=== PATIENT | female | born 1960 | race Caucasian/White ===

== ENCOUNTER 2018-09-22 22:29 | Emergency (ER) | payer OTHER, SELFPAY ==
[2018-09-22 22:41] VITALS: BP 149/82; PULSE 113; RESP 24; TEMP 37.3; O2SAT 93; BMI 34.5
--- NOTE | 2018-09-22 22:44 | DI.RAD.S_ITS ---
PROCEDURE: XR CHEST 2V INDICATIONS: fever,cough,shortness of breath TECHNIQUE: 2 views of the chest were acquired. COMPARISON: None. FINDINGS: Surgical changes and devices: None. Lungs and pleura: There is infiltrate in the right lower lung zone. No pleural effusions or pneumothorax. Mediastinum: Mediastinal contours are normal. Heart size is normal. Bones and chest wall: No suspicious bony abnormalities. Soft tissues appear unremarkable. IMPRESSION: Infiltrate in the right lower lung consistent with pneumonia. Recommend short-term followup chest x-ray to resolution. Dictated by: Linda Fernando M.D. on 09/23/2018 at 8:52 Approved by: Linda Fernando M.D. on 09/23/2018 at 8:54
[2018-09-22 22:47] VITALS: PULSE 111; RESP 22; O2SAT 95
[2018-09-22] MEDS: ALBUTEROL/IPRATROPIUM 3 ML AMPUL INH (22:47)
[2018-09-22] MEDS: ALBUTEROL 2.5 MG/3 ML NEB (ADULT) INH (22:47)
[2018-09-22 23:13] VITALS: PULSE 111; RESP 22; O2SAT 97
[2018-09-22] MEDS: ALBUTEROL 2.5 MG/3 ML NEB (ADULT) 5 MG INH (23:13)
[2018-09-22 23:30] VITALS: BP 122/72; PULSE 102; O2SAT 98
--- NOTE | 2018-09-22 23:30 | ED_ITS ---
HPI - URI/Sore Throat General Chief Complaint: Upper Respiratory Symptoms Stated Complaint: FEVER, COUGH, RESPIRATORY ISSUES Time Seen by Provider: 09/22/18 22:46 Source: patient Mode of arrival: ambulatory Limitations: no limitations History of Present Illness HPI Narrative: Patient is a 58-year-old female with history of asthma presenting fever and difficulty breathing for the last 8 days. She has had worsening productive cough over the last few days. She has had body aches fever and chills. She is overall not improving. She was using her albuterol without any relief. She has coughed so hard that she has vomited at times. He said it all started when she emptied her VAC. They did just move here from [place] awaiting furniture to arrive. MD Complaint: fever and cough Onset (ago): day(s) (8) Related Data Home Medications Medication Instructions Recorded Confirmed fluticasone-salmeterol [Advair HFA] INH #0 03/24/17 hydrocodone-acetaminophen [Vicodin] 1 tab PO Q4HP PRN #0 09/14/17 Previous Rx's Medication Instructions Recorded ipratropium-albuterol 3 ml INH Q6H PRN #100 02/16/17 lisinopril-hydrochlorothiazide 1 tab PO QDAY #90 02/16/17 fluticasone-salmeterol [Advair 1 puff INH BID #1 ea 06/15/17 Diskus] prednisone 20 mg PO SEE INSTRUCTIONS #10 tab 12/29/17 levofloxacin [Levaquin] 750 mg PO DAILY #5 tab 09/23/18 prednisone 50 mg PO DAILY #5 tab 09/23/18 Allergies Allergy/AdvReac Type Severity Reaction Status Date / Time iodine [IODINE] AdvReac Mild iv Verified 09/22/18 22:49 contrast - weird feeling Review of Systems Review of Systems ROS Unobtainable: All systems reviewed & are unremarkable except as noted in HPI and below Constitutional Reports body ache(s), Reports chills, Reports fatigue, Reports fever(s), Reports headache(s), Reports lethargy and Denies weakness ENT Ears, Nose, Mouth, and Throat: Denies change in voice, Reports headache(s), Denies neck pain and Denies sore throat Cardiovascular Denies chest pain, Denies syncope, Denies irregular heart rhythm, Denies lightheadedness, Denies palpitations and Denies orthopnea Respiratory Reports as per HPI Gastrointestinal Gastrointestinal: Denies abdominal pain, Denies change in bowel habits, Denies diarrhea, Denies nausea and Reports vomiting (After coughing) Genitourinary Denies hematuria, Denies flank pain, Denies urinary incontinence and Denies urinary urgency Musculoskeletal Denies neck pain Integumentary/Breasts Denies pruritus, Denies erythema, Denies rash and Denies wounds Neurologic Denies syncope, Reports headache(s), Denies focal weakness and Denies weakness Endocrine Reports fatigue and Denies palpitations PFSH Medical History Asthma (Acute) Surgical History History of tonsillectomy Status post hysterectomy Status post parathyroidectomy Family History Father Hypertension Mother Hypertension Grandmother Hypertension Social History Smoking Status: Never smoker Exam Initial Vital Signs Initial Vital Signs: Vital Signs Temperature 99.1 F 09/22/18 22:41 Pulse Rate 113 H 09/22/18 22:41 Respiratory Rate 24 09/22/18 22:41 Blood Pressure 149/82 H 09/22/18 22:41 Pulse Oximetry 93 09/22/18 22:41 GENERAL: Well-appearing, well-nourished and in no acute distress. HEENT: Head atraumatic,EOMI, pupils reactive CARDIOVASCULAR: Regular rate and rhythm without murmurs, rubs or gallops. RESPIRATORY: Diffuse wheezing bilaterally speaking in full sentences without difficulty mild rales at bases no intercostal retractions, slightly tachypneic. ABDOMEN: Soft, nontender. Normoactive bowel sounds all 4 quadrants. No guarding or rebound. EXTREMITIES: Normal range of motion, no clubbing or edema. Neurovascularly intact NEUROLOGICAL: Alert and oriented x4.Normal gait and speech. Cranial nerves II through XII grossly intact. SKIN: Warm, dry, no laceration, no petechiae, no rashes or lesions. Scores CURB-65 Confusion: No BUN >19mg/dL (>7mmol/L): No Respiratory rate greater or equal to 30: No SBP <90mmHg or DBP less or equal to 60mmHg: No Age 65 or Older: No CURB-65 Total: 0 Score 0-1 Outpatient care, Score 2 Inpt vs. Obs, Score 3 or over Inpt admit with ICU for score of 4-5 Course Orders Ordered: ED Orders 09/22/18 22:44 XR chest 2V Stat 09/22/18 23:17 Consult to Respiratory Therapy Evaluate & Treat EKG-12 Lead Stat 09/22/18 23:20 B Type Natriuretic Peptide Stat Complete Blood Count AUTO DIFF Stat Comprehensive Metabolic Panel Stat Magnesium Stat Partial Thromboplastin Time Stat Procalcitonin Stat Prothrombin Time INR Stat Troponin & CK Cardiac Panel Stat 09/22/18 23:34 Blood Culture Stat 09/22/18 23:35 Lactate (Lactic Acid) Stat Discontinued Medications Acetaminophen (Tylenol) 975 mg PO NOW ONE Stop: 09/23/18 01:00 Last Admin: 09/23/18 01:16 Dose: 975 mg Albuterol (Ventolin) 2.5 mg INH NOW ONE Stop: 09/22/18 22:47 Last Admin: 09/22/18 22:47 Dose: 2.5 mg Albuterol (Ventolin) 5 mg INH NOW ONE Stop: 09/22/18 23:13 Last Admin: 09/22/18 23:13 Dose: 5 mg Albuterol/Ipratropium (Duoneb) 3 ml INH NOW ONE Stop: 09/22/18 22:46 Last Admin: 09/22/18 22:47 Dose: 3 ml Sodium Chloride (Normal Saline 0.9%) 1,000 mls @ 1,000 mls/hr IV BOLUS ONE Stop: 09/23/18 00:15 Last Infusion: 09/23/18 01:14 Dose: 0 mls/hr Admin: 09/22/18 23:49 Dose: 1,000 mls/hr Levofloxacin (Levaquin) 750 mg PO NOW ONE Stop: 09/23/18 01:00 Last Admin: 09/23/18 01:16 Dose: 750 mg Methylprednisolone (Solu-Medrol 125 Mg Vial) 125 mg IV NOW ONE Stop: 09/22/18 23:17 Last Admin: 09/22/18 23:48 Dose: 125 mg Vital Signs - 8 hr 09/22/18 22:41 09/22/18 22:47 09/22/18 23:13 Temperature 99.1 F Pulse Rate 113 H 111 H 111 H Respiratory Rate 24 22 22 Blood Pressure 149/82 H Blood Pressure [Left Arm] Pulse Oximetry 93 95 97 09/22/18 23:30 09/23/18 01:40 Temperature Pulse Rate 102 H 112 H Respiratory Rate 20 Blood Pressure 122/72 Blood Pressure [Left Arm] 122/72 Pulse Oximetry 98 98 MDM - URI/Sore Throat Lab Data Attestation: I reviewed the patient's lab results. Result diagrams: 09/22/18 23:20 09/22/18 23:20 Lab Results 09/22/18 09/22/18 09/22/18 Range/Units 23:20 23:20 23:20 WBC 8.2 (4.5-11.0) X10^3/uL RBC 4.13 (4.0-5.2) X10^6/uL Hgb 12.7 (12.0-16.0) g/dL Hct 36.7 (36-46) % MCV 89.0 (80-100) fL MCH 30.6 (26-34) PG MCHC 34.4 (30-36) % RDW 12.6 (11.6-14.8) % Plt Count 315 (150-400) X10^3/uL Neut % (Auto) 63.6 (50-75) % Lymph % (Auto) 24.4 L (25-40) % [place] % (Auto) 9.4 (3-14) % Eos % (Auto) 2.3 (2-4) % Baso % (Auto) 0.3 (0-2) % Neut # (Auto) 5200 (3784-4476) /uL Lymph # (Auto) 2000 (8849-7516) /uL [place] # (Auto) 800 (0-900) /uL Eos # (Auto) 200 (0-450) /uL Baso # (Auto) 0 (0-100) /uL PT 12.4 (10.1-12.7) SECONDS INR 1.1 (0.9-1.3) APTT 36 (26.4-36.2) SECONDS Sodium 140 (137-145) mmol/L Potassium 3.7 (3.4-5.1) mmol/L Chloride 97 L (98-107) mmol/L Carbon Dioxide 30 (22-32) mmol/L BUN 18 H (7-17) mg/dL Creatinine 0.70 (0.52-1.04) mg/dL Estimated GFR > 60.0 (>60) mL/min BUN/Creatinine Ratio 25.7 H (6-22) Glucose 113 H (70-100) mg/dL Lactate (0.7-2.1) mmol/L Calcium 9.2 (8.4-10.2) mg/dL Magnesium 1.9 (1.6-2.3) mg/dL Total Bilirubin 0.6 (0.2-1.3) mg/dL AST 29 (14-36) IU/L ALT 24 (9-52) IU/L Alkaline Phosphatase 92 (38-126) U/L Total Creatine Kinase 80 (30-135) U/L CK-MB (CK-2) TNP CK-MB (CK-2) Rel Index TNP Troponin I < 0.012 (0.01-0.034) ng/mL B-Natriuretic Peptide < 100 (<100) Total Protein 8.1 (6.3-8.2) g/dL Albumin 4.4 (3.5-5.0) g/dL Globulin 3.7 (1.7-4.1) g/dL Albumin/Globulin Ratio 1.2 (1.0-2.8) Procalcitonin (<0.5) ng/mL 09/22/18 09/22/18 Range/Units 23:20 23:35 WBC (4.5-11.0) X10^3/uL RBC (4.0-5.2) X10^6/uL Hgb (12.0-16.0) g/dL Hct (36-46) % MCV (80-100) fL MCH (26-34) PG MCHC (30-36) % RDW (11.6-14.8) % Plt Count (150-400) X10^3/uL Neut % (Auto) (50-75) % Lymph % (Auto) (25-40) % [place] % (Auto) (3-14) % Eos % (Auto) (2-4) % Baso % (Auto) (0-2) % Neut # (Auto) (8523-8370) /uL Lymph # (Auto) (6563-5438) /uL [place] # (Auto) (0-900) /uL Eos # (Auto) (0-450) /uL Baso # (Auto) (0-100) /uL PT (10.1-12.7) SECONDS INR (0.9-1.3) APTT (26.4-36.2) SECONDS Sodium (137-145) mmol/L Potassium (3.4-5.1) mmol/L Chloride (98-107) mmol/L Carbon Dioxide (22-32) mmol/L BUN (7-17) mg/dL Creatinine (0.52-1.04) mg/dL Estimated GFR (>60) mL/min BUN/Creatinine Ratio (6-22) Glucose (70-100) mg/dL Lactate 1.2 (0.7-2.1) mmol/L Calcium (8.4-10.2) mg/dL Magnesium (1.6-2.3) mg/dL Total Bilirubin (0.2-1.3) mg/dL AST (14-36) IU/L ALT (9-52) IU/L Alkaline Phosphatase (38-126) U/L Total Creatine Kinase (30-135) U/L CK-MB (CK-2) CK-MB (CK-2) Rel Index Troponin I (0.01-0.034) ng/mL B-Natriuretic Peptide (<100) Total Protein (6.3-8.2) g/dL Albumin (3.5-5.0) g/dL Globulin (1.7-4.1) g/dL Albumin/Globulin Ratio (1.0-2.8) Procalcitonin < 0.05 (<0.5) ng/mL Imaging Data Chest x-ray: Attestation: I personally reviewed and interpreted this imaging study as follows: My impression: Right middle lobe pneumonia ECG Data Attestation: I personally reviewed and interpreted this ECG as follows: Prior ECG tracings: not available for review Interpretation: Normal sinus rhythm rate [address] changes or T-wave inversion Q -wave noted in lead 3 no priors to compare MDM Narrative Medical decision making narrative: Patient has always been able to speak without any difficulty. Her breathing did improve with bronchodilators. She does have right middle lobe pneumonia on x-ray. At this time does not meet inpatient criteria. She had an ambulation trial in the ED with oxygen levels remaining above 90%. Discharge Plan Departure Patient Disposition: Home Clinical Impression: Pneumonia Discharge Date/Time: 09/23/18 01:43 Interventions: ED Discharge Assessment Last Done: 09/23/18 01:40 Instructions: DI for Pneumonia -- Adult Activity Restrictions/Additional Instructions: *You have been diagnosed with pneumonia *What to do: Rest, hydrate, fever control, at this time you do not meet inpatient criteria *Continue to take medications as directed Levaquin 750 mg once a day for 5 days Prednisone 50 mg once a day for 5 days Albuterol 1-2 puffs with spacer every 4 hr if needed for shortness of breath *Follow up with your primary care provider in 2-3 days *Return to ER if you should have difficulty breathing, increasing shortness breath, chest discomfort or any new, worsening or concerning symptoms Prescriptions: New prednisone 50 mg tablet 50 mg PO DAILY Qty: 5 RF: 0 levofloxacin [Levaquin] 750 mg tablet 750 mg PO DAILY Qty: 5 RF: 0 No Action ipratropium-albuterol 3 ML solution for nebulization 3 ml INH Q6H PRNQty: 100 RF: 3 lisinopril-hydrochlorothiazide 10 MG/12.5 MG tablet 1 tab PO QDAY Qty: 90 RF: 3 fluticasone-salmeterol [Advair HFA] 45-21 mcg/actuation Hfa Aerosol Inhaler INH Qty: 0 RF: 0 fluticasone-salmeterol [Advair Diskus] 250 MCG/50 MCG blister with device 1 puff INH BID Qty: 1 RF: 3 hydrocodone-acetaminophen [Vicodin] 5 MG/300 MG tablet 1 tab PO Q4HP PRNQty: 0 RF: 0 prednisone 20 MG tablet 20 mg PO SEE INSTRUCTIONS Qty: 10 RF: 0 Referrals: Rosaura Arroyo DO [Primary Care Provider] - Stand Alone Forms: Work Release Note
[2018-09-22 23:38] LABS: Add Manual Diff / Slide Review NO; Basophils Absolute Auto 0 /uL (0-100); Basophils Percent Auto 0.3 % (0-2); Eosinophils Absolute Auto 200 /uL (0-450); Eosinophils Percent Auto 2.3 % (2-4); Hematocrit 36.7 % (36-46); Hemoglobin 12.7 g/dL (12.0-16.0); Lymphocytes Absolute Auto 2000 /uL (1100-4500); Lymphocytes Percent Auto 24.4 % (25-40); Mean Corpuscular HGB Conc 34.4 % (30-36); Mean Corpuscular Hemoglobin 30.6 PG (26-34); Monocytes Absolute Auto 800 /uL (0-900); Monocytes Percent Auto 9.4 % (3-14); Neutrophils Absolute Auto 5200 /uL (1500-7000); Neutrophils Percent Auto 63.6 % (50-75); Platelet Count 315 X10^3/uL (150-400); Red Blood Cell Count 4.13 X10^6/uL (4.0-5.2); Red Cell Distribution Width 12.6 % (11.6-14.8); White Blood Cell Count 8.2 X10^3/uL (4.5-11.0)
[2018-09-22 23:44] LABS: INR 1.1 (0.9-1.3); Prothrombin Time 12.4 SECONDS (10.1-12.7)
[2018-09-22 23:46] LABS: PTT Partial Thromboplastin Tim 36 SECONDS (26.4-36.2)
[2018-09-22 23:48] LABS: Alanine Aminotransferase 24 IU/L (9-52); Albumin 4.4 g/dL (3.5-5.0); Albumin Globulin Ratio 1.2 (1.0-2.8); Alkaline Phosphatase 92 U/L (38-126); Aspartate Aminotransferase 29 IU/L (14-36); BUN Creatinine Ratio 25.7 (6-22); Bilirubin Total 0.6 mg/dL (0.2-1.3); Blood Urea Nitrogen 18 mg/dL (7-17); Calcium 9.2 mg/dL (8.4-10.2); Carbon Dioxide 30 mmol/L (22-32); Chloride 97 mmol/L (98-107); Creatine Kinase 80 U/L (30-135); Estimated Glomerular Filt Rate > 60.0 mL/min (>60); Globulin 3.7 g/dL (1.7-4.1); Glucose 113 mg/dL (70-100); HEMOLYSIS 17 (0-50); Magnesium 1.9 mg/dL (1.6-2.3); Potassium 3.7 mmol/L (3.4-5.1); Sodium 140 mmol/L (137-145); Total Protein 8.1 g/dL (6.3-8.2)
[2018-09-22] MEDS: methylPREDNISolone 125 MG/2 ML VIAL IV (23:48)
[2018-09-22] MEDS: SODIUM CHLORIDE 0.9% 1,000 ML 1000 ML IV (23:49)
[2018-09-23 00:04] LABS: B Type Natriuretic Peptide < 100 (<100); Troponin I < 0.012 ng/mL (0.01-0.034)
[2018-09-23 00:10] LABS: Lactate (Lactic Acid) 1.2 mmol/L (0.7-2.1)
[2018-09-23 00:28] LABS: Procalcitonin < 0.05 ng/mL (<0.5)
[2018-09-23] MEDS: ACETAMINOPHEN 325 MG TABLET 975 MG PO (01:16)
[2018-09-23] MEDS: levoFLOXacin 250 MG TABLET 750 MG PO (01:16)
[2018-09-23 01:40] VITALS: BP 122/72; PULSE 112; RESP 20; O2SAT 98
== END 2018-09-23 01:43 | disposition home or self-care (01) ==
PROVIDERS: Emergency Provider Emergency Medicine; Family Provider Family Medicine; PCP Family Medicine
DX: J18.9 Pneumonia, unspecified organism (principal)
CPT/HCPCS: 36415; 36591; 71046; 80053; 82550; 83605; 83735; 83880; 84145; 84484; 85025; 85610; 85730; 87040; 93005; 93010; 94150; 94640; 96361; 96374; 99283; 99285; J2930; J7613

== ENCOUNTER → 2019-01-29 10:41 | Outpatient (CLI) | payer OTHER, SELFPAY ==
--- NOTE | 2019-01-29 | DI.RAD.S_ITS ---
PROCEDURE: XR CHEST 2V INDICATIONS: HISTORY OF PNEUMONIA TECHNIQUE: 2 views of the chest were acquired. COMPARISON: [facility], CR, XR CHEST 2V, 09/22/2018, 23:34. FINDINGS: Surgical changes and devices: None. Lungs and pleura: Lungs are clear. The previously seen right lower lobe infiltrate has resolved. No pleural effusions or pneumothorax. The lungs are hyperexpanded, with flattening of the hemidiaphragms seen. Mediastinum: Mediastinal contours are normal. Heart size is normal. Bones and chest wall: No suspicious bony abnormalities. Soft tissues appear unremarkable. IMPRESSION: No infiltrates are now seen. The previously seen right-sided infiltrate has resolved. Dictated by: Jimmy Hernandez M.D. on 01/29/2019 at 10:50 Approved by: Jimmy Hernandez M.D. on 01/29/2019 at 10:51
== END ==
PROVIDERS: PCP Internal Medicine; Visit Provider Internal Medicine
DX: Z09 Encounter for follow-up examination after completed treatment for conditions other than malignant neoplasm (principal); Z87.01 Personal history of pneumonia (recurrent)
CPT/HCPCS: 71046

== ENCOUNTER → 2019-02-26 11:47 | Outpatient (CLI) | payer OTHER, SELFPAY ==
[2019-02-26 11:56] LABS: Bacteria Urine None Seen; RBC Urine None Seen (0-5/HPF)
[2019-02-26 12:35] LABS: Appearance Urine UA CLEAR; Bilirubin Urine UA NEGATIVE (NEGATIVE); Color Urine UA YELLOW; Glucose Urine UA NEGATIVE (Negative); Ketones Urine UA NEGATIVE (NEGATIVE); Leukocyte Esterase Urine UA NEGATIVE (NEGATIVE); Nitrite Urine UA NEGATIVE (Negative); Occult Blood Urine UA TRACE-INTACT (Negative); Protein Urine UA TRACE (Negative); Urobilinogen Urine UA 0.2 E.U./dL (0.2)
[2019-02-26 12:38] LABS: Add Manual Diff / Slide Review NO; Basophils Absolute Auto 0 /uL (0-100); Eosinophils Absolute Auto 200 /uL (0-450); Eosinophils Percent Auto 4.3 % (2-4); Hematocrit 38.4 % (36-46); Hemoglobin 13.2 g/dL (12.0-16.0); Lymphocytes Absolute Auto 1300 /uL (1100-4500); Lymphocytes Percent Auto 29.9 % (25-40); Mean Corpuscular HGB Conc 34.5 % (30-36); Mean Corpuscular Hemoglobin 30.7 PG (26-34); Mean Corpuscular Volume 89.1 fL (80-100); Monocytes Absolute Auto 400 /uL (0-900); Monocytes Percent Auto 8.4 % (3-14); Neutrophils Absolute Auto 2400 /uL (1500-7000); Neutrophils Percent Auto 56.4 % (50-75); Platelet Count 220 X10^3/uL (150-400); Red Blood Cell Count 4.31 X10^6/uL (4.0-5.2); Red Cell Distribution Width 12.5 % (11.6-14.8); White Blood Cell Count 4.2 X10^3/uL (4.5-11.0)
[2019-02-26 12:46] LABS: Amorphous Sediment Urine 2+; Culture Indicated Urine Cult Not Indicated; Squamous Epithelial Cell Urine 5-10 /HPF (0-5/HPF); WBC Urine 1-5/HPF (0-5/HPF)
[2019-02-26 12:59] LABS: Prothrombin Time 11.1 SECONDS (10.1-12.7)
[2019-02-26 13:02] LABS: PTT Partial Thromboplastin Tim 43 SECONDS (26.4-36.2)
[2019-02-26 13:03] LABS: Alanine Aminotransferase 29 IU/L (9-52); Albumin 4.4 g/dL (3.5-5.0); Albumin Globulin Ratio 1.4 (1.0-2.8); Alkaline Phosphatase 81 U/L (38-126); Aspartate Aminotransferase 27 IU/L (14-36); BUN Creatinine Ratio 31.3 (6-22); Bilirubin Total 0.6 mg/dL (0.2-1.3); Blood Urea Nitrogen 25 mg/dL (7-17); Calcium 9.2 mg/dL (8.4-10.2); Carbon Dioxide 32 mmol/L (22-32); Chloride 103 mmol/L (98-107); Estimated Glomerular Filt Rate > 60.0 mL/min (>60); Globulin 3.2 g/dL (1.7-4.1); Glucose 111 mg/dL (70-100); HEMOLYSIS < 15 (0-50); Potassium 3.9 mmol/L (3.4-5.1); Sodium 141 mmol/L (137-145); Total Protein 7.6 g/dL (6.3-8.2)
[2019-03-01 15:42] LABS: Parathyroid Hormone Int 56 pg/mL (14-64)
== END ==
PROVIDERS: PCP Internal Medicine; Visit Provider Internal Medicine
DX: N20.0 Calculus of kidney (principal); E21.3 Hyperparathyroidism, unspecified; R31.0 Gross hematuria
CPT/HCPCS: 36415; 80053; 81001; 83970; 85025; 85610; 85730

== ENCOUNTER → 2019-03-15 08:04 | Outpatient (CLI) | payer OTHER, SELFPAY ==
--- NOTE | 2019-03-15 08:08 | DI.CT.S_ITS ---
PROCEDURE: CT ABDOMEN PELVIS WO CON INDICATIONS: GROSS HEMATURIA PAINLESS TECHNIQUE: Noncontrast 5 mm thick sections acquired from the diaphragms to the symphysis. 5 mm thick coronal and sagittal reformats were then performed. For radiation dose reduction, the following was used: automated exposure control, adjustment of mA and/or kV according to patient size. COMPARISON: [facility], CT, KIDNEY/ URETER/BLADDER, 02/16/2017, 23:29. FINDINGS: Image quality: Excellent. Lung bases: Lung bases are clear. Heart size is normal. A small hiatal hernia is incidentally noted. Urinary system: Both kidneys are normal in size. Several nonobstructing kidney stones are seen involving both kidneys, which are similar to the 2017 examination. The left kidney demonstrates a lobulated, irregular appearance, which is similar to 2017. No hydronephrosis or perinephric fat stranding. Both ureters appear non-dilated throughout their expected courses. Bladder wall thickness is normal; no calcified bladder stones. Other solid organs: Liver is normal in size. Gallbladder is largely collapsed at the time of this study. Pancreas is normal in contours. Spleen is mildly enlarged, measuring 13.2 cm AP. No adrenal nodules. Peritoneum and bowel: Unenhanced bowel loops demonstrate normal wall thickness and caliber. No free fluid or air. The cecum is low-lying. Incidental note is made of a normal-appearing appendix. Nodes and vessels: Mild prominence of lymph nodes can be seen within the mesentery. There is a mild amount of fatty stranding seen involving the central mesentery. Aorta and inferior vena cava are normal in caliber. Abdominal wall: A mild periumbilical hernia is seen, containing fat. Pelvis: No free pelvic fluid. No inguinal adenopathy. Small bilateral fat-containing inguinal hernias are seen. Bones: No suspicious bony lesions. No vertebral body compression fractures. S-shaped scoliotic curvature is seen. Degenerative changes are seen throughout, which are most prominent involving the lower lumbar spine. IMPRESSION: Bilateral kidney stones are seen, which are similar to the 2017 examination. No ureteral stones are seen. To the limits of this noncontrast study, no pita renal masses are seen. Mild prominence of lymph nodes can be seen along the central mesentery and there is mild fatty stranding within the central mesentery. These findings are similar to 2017. This is typically seen in patients with chronic inflammatory change. Incidental note is made of: Small hiatal hernia Mild splenomegaly S-shaped scoliotic curvature Lower lumbar spine degenerative change Fat-containing periumbilical hernia Small fat containing bilateral inguinal hernias Dictated by: Jimmy Hernandez M.D. on 03/15/2019 at 8:53 Approved by: Jimmy Hernandez M.D. on 03/15/2019 at 9:00
== END ==
PROVIDERS: PCP Internal Medicine; Visit Provider Internal Medicine
DX: R31.0 Gross hematuria (principal); N20.0 Calculus of kidney; K44.9 Diaphragmatic hernia without obstruction or gangrene; R16.1 Splenomegaly, not elsewhere classified; M47.816 Spondylosis without myelopathy or radiculopathy, lumbar region; K42.9 Umbilical hernia without obstruction or gangrene; K40.20 Bilateral inguinal hernia, without obstruction or gangrene, not specified as recurrent
CPT/HCPCS: 74176

== ENCOUNTER → 2019-09-27 13:09 | Outpatient (CLI) | payer OTHER, SELFPAY ==
[2019-09-27 14:03] LABS: Add Manual Diff / Slide Review NO; Basophils Absolute Auto 0 /uL (0-100); Basophils Percent Auto 0.9 % (0-2); Eosinophils Absolute Auto 100 /uL (0-450); Eosinophils Percent Auto 1.8 % (2-4); Hematocrit 39.8 % (36-46); Hemoglobin 14.2 g/dL (12.0-16.0); Lymphocytes Absolute Auto 1200 /uL (1100-4500); Lymphocytes Percent Auto 23.7 % (25-40); Mean Corpuscular HGB Conc 35.8 % (30-36); Mean Corpuscular Hemoglobin 31.5 PG (26-34); Monocytes Absolute Auto 400 /uL (0-900); Neutrophils Absolute Auto 3300 /uL (1500-7000); Neutrophils Percent Auto 65.6 % (50-75); Platelet Count 275 X10^3/uL (150-400); Red Blood Cell Count 4.52 X10^6/uL (4.0-5.2); Red Cell Distribution Width 12.9 % (11.6-14.8)
[2019-09-27 14:06] LABS: Prothrombin Time 11.8 SECONDS (10.1-12.7)
[2019-09-27 14:08] LABS: PTT Partial Thromboplastin Tim 44 SECONDS (26.4-36.2)
[2019-09-27 14:49] LABS: Alanine Aminotransferase 31 IU/L (<35); Albumin Globulin Ratio 1.5 (1.0-2.8); Alkaline Phosphatase 96 U/L (38-126); Aspartate Aminotransferase 31 IU/L (14-36); BUN Creatinine Ratio 23.3 (6-22); Bilirubin Total 0.6 mg/dL (0.2-1.3); Blood Urea Nitrogen 21 mg/dL (7-17); Carbon Dioxide 31 mmol/L (22-32); Chloride 95 mmol/L (98-107); Estimated Glomerular Filt Rate > 60.0 mL/min (>60); Globulin 3.4 g/dL (1.7-4.1); Glucose 112 mg/dL (80-110); HEMOLYSIS < 15 (0-50); Potassium 4.2 mmol/L (3.4-5.1); Sodium 138 mmol/L (137-145); Total Protein 8.4 g/dL (6.3-8.2)
[2019-09-27 14:58] LABS: Vitamin D 25 Hydroxy (D3) 47.8 ng/mL (30.0-100.0)
[2019-09-27 15:23] LABS: TSH w/ Reflex to FT4 1.13 uIU/mL (0.47-4.68)
[2019-09-29 15:25] LABS: Parathyroid Hormone Int 66 pg/mL (14-64)
== END ==
PROVIDERS: PCP Internal Medicine; Visit Provider Internal Medicine
DX: Z01.818 Encounter for other preprocedural examination (principal); E21.3 Hyperparathyroidism, unspecified; C43.59 Malignant melanoma of other part of trunk; F41.8 Other specified anxiety disorders
CPT/HCPCS: 36415; 80053; 82306; 83970; 84443; 85025; 85610; 85730

== ENCOUNTER → 2019-10-12 11:08 | Outpatient (CLI) | payer OTHER, SELFPAY ==
--- NOTE | 2019-10-12 11:15 | DI.US.S_ITS ---
PROCEDURE: US EXTREMELY NONVASC UPPER RT INDICATIONS: RIGHT UPPER BACK MELANOMA; CHECK RIGHT UNDERARM NODES TECHNIQUE: Real-time scanning was performed of the axilla area, specified by the wording of care provider in [facility], with image documentation. COMPARISON: [facility], CR, XR CHEST 2V, 01/29/2019, 11:02. [facility], CT, CT ABDOMEN PELVIS WO CON, 03/15/2019, 8:12. FINDINGS: No adenopathy found in the axilla area and adjacent chest wall. IMPRESSION: No adenopathy found. Dictated by: Sylvester Benjamin M.D. on 10/12/2019 at 12:40 Approved by: Sylvester Benjamin M.D. on 10/12/2019 at 12:43
== END ==
PROVIDERS: PCP Internal Medicine
DX: C43.59 Malignant melanoma of other part of trunk (principal)
CPT/HCPCS: 76882

== ENCOUNTER → 2020-07-24 14:49 | Outpatient (ROUT) | payer OTHER, MEDICAID, SELFPAY ==
[2020-07-24 15:07] LABS: Alanine Aminotransferase 28 IU/L (<35); Albumin 4.6 g/dL (3.5-5.0); Albumin Globulin Ratio 1.5 (1.0-2.8); Alkaline Phosphatase 100 U/L (38-126); Aspartate Aminotransferase 30 IU/L (14-36); BUN Creatinine Ratio 32.9 (6-22); Bilirubin Total 0.6 mg/dL (0.2-1.3); Blood Urea Nitrogen 25 mg/dL (7-17); Calcium 9.4 mg/dL (8.4-10.2); Carbon Dioxide 32 mmol/L (22-32); Chloride 99 mmol/L (98-107); Estimated Glomerular Filt Rate > 60.0 mL/min (>60); Globulin 3.1 g/dL (1.7-4.1); Glucose 102 mg/dL (80-110); HEMOLYSIS < 15 (0-50); Potassium 4.1 mmol/L (3.4-5.1); Sodium 137 mmol/L (137-145); Total Protein 7.7 g/dL (6.3-8.2)
[2020-07-24 15:08] LABS: Add Manual Diff / Slide Review NO; Basophils Absolute Auto 100 /uL (0-100); Basophils Percent Auto 1.5 % (0-2); Eosinophils Absolute Auto 200 /uL (0-450); Hematocrit 39.3 % (36-46); Hemoglobin 13.3 g/dL (12.0-16.0); Lymphocytes Absolute Auto 1300 /uL (1100-4500); Lymphocytes Percent Auto 27.2 % (25-40); Mean Corpuscular HGB Conc 33.9 % (30-36); Mean Corpuscular Hemoglobin 30.9 PG (26-34); Mean Corpuscular Volume 91.1 fL (80-100); Monocytes Absolute Auto 400 /uL (0-900); Monocytes Percent Auto 8.9 % (3-14); Neutrophils Absolute Auto 2700 /uL (1500-7000); Neutrophils Percent Auto 58.4 % (50-75); Platelet Count 220 X10^3/uL (150-400); Red Blood Cell Count 4.31 X10^6/uL (4.0-5.2); Red Cell Distribution Width 12.7 % (11.6-14.8); White Blood Cell Count 4.6 X10^3/uL (4.5-11.0)
[2020-07-24 15:23] LABS: Vitamin D 25 Hydroxy (D3) 36.2 ng/mL (30.0-100.0)
[2020-07-24 15:36] LABS: TSH w/ Reflex to FT4 1.71 uIU/mL (0.47-4.68)
[2020-07-24 15:40] LABS: Ferritin 103 ng/mL (11-264)
[2020-07-25 06:36] LABS: Parathyroid Hormone Int 32 pg/mL (15-65)
== END ==
PROVIDERS: PCP Internal Medicine; Visit Provider Internal Medicine
DX: Z85.820 Personal history of malignant melanoma of skin (principal); E21.3 Hyperparathyroidism, unspecified; L65.9 Nonscarring hair loss, unspecified
CPT/HCPCS: 80053; 82306; 82728; 83735; 83970; 84443; 85025

== ENCOUNTER 2020-10-05 07:56 | Emergency (ER) | payer OTHER, MEDICAID, SELFPAY ==
[2020-10-05 08:06] VITALS: BP 130/90; PULSE 77; RESP 18; TEMP 36.8; O2SAT 96; BMI 33.4
--- NOTE | 2020-10-05 08:08 | ED.LOWEXIN ---
HPI - Extremity Injury (Lower) General Chief Complaint: Extremity Injury, Lower Stated Complaint: thinks she broke right ankle Time Seen by Provider: 10/05/20 08:01 Source: patient Mode of arrival: Wheelchair Limitations: no limitations History of Present Illness HPI Narrative: Patient is a 60-year-old female who presents with right ankle pain. She is unsure what she did yesterday but she was sleeping on the couch when she suddenly tried to get up and she hit her ankle my medial side. She is able to walk on it but is extremely tender. Worried because she previously broke her arm and did not have it looked at for 1 month. Denies numbness tingling or weakness. complaint: ankle injury Onset (ago): day(s) (1) Related Data Home Medications Medication Instructions Recorded Confirmed fluticasone propion-salmeterol INH #0 03/24/17 [Advair HFA] hydrocodone-acetaminophen [Vicodin] 1 tab PO Q4HP PRN #0 09/14/17 Previous Rx's Medication Instructions Recorded ipratropium-albuterol 3 ml INH Q6H PRN #100 02/16/17 lisinopril-hydrochlorothiazide 1 tab PO QDAY #90 02/16/17 fluticasone propion-salmeterol 1 puff INH BID #1 ea 06/15/17 [Advair Diskus] prednisone 20 mg PO SEE INSTRUCTIONS #10 tab 12/29/17 levofloxacin [Levaquin] 750 mg PO DAILY #5 tab 09/23/18 prednisone 50 mg PO DAILY #5 tab 09/23/18 Allergies Allergy/AdvReac Type Severity Reaction Status Date / Time iodine [IODINE] AdvReac Mild iv Verified 10/05/20 08:06 contrast - weird feeling Review of Systems Review of Systems Narrative: GENERAL: Denies chills,fever HEENT: Denies throat pain RESPIRATORY: Denies dyspnea, cough, wheezing CARDIOVASCULAR: Denies chest pain, palpitations GASTROINTESTINAL: Denies nausea, vomiting MUSCULOSKELETAL: See HPI SKIN: No rash, no laceration, no pruritus NEUROLOGIC: Denies weakness, dizziness, headache, numbness 8 point review of systems is negative except for those stated above and HPI Patient History Medical History Asthma Surgical History History of tonsillectomy Status post hysterectomy Status post parathyroidectomy Family History Father Hypertension Mother Hypertension Grandmother Hypertension Social History Smoking Status: Never smoker Smoking Status: Never smoker Substance Use Type: does not use Exam Initial Vital Signs Initial Vital Signs: Vital Signs Temperature 98.3 F 10/05/20 08:06 Pulse Rate 77 10/05/20 08:06 Respiratory Rate 18 10/05/20 08:06 Blood Pressure 130/90 10/05/20 08:06 Pulse Oximetry 96 10/05/20 08:06 GENERAL: Well-appearing, well-nourished and in no acute distress. CARDIOVASCULAR: peripheral pulses in tact, cap refill <2 sec RESPIRATORY: No respiratory distress, speaks in full sentences without difficulty EXTREMITIES: Normal range of motion, no clubbing or edema. Neurovascularly intact Right ankle tender medial malleoli with small gamma no erythema extremely tender to touch distal pedal pulse intact NEUROLOGICAL: Cranial nerves II through XII grossly intact. Normal gait and speech. SKIN: Warm, dry, no petechiae, no rashes or lesions. Course Orders Ordered: ED Orders 10/05/20 08:12 XR ankle RT min 3V Stat Vital Signs Vital signs: Vital Signs - 8 hr 10/05/20 08:06 Temperature 98.3 F Pulse Rate 77 Respiratory Rate 18 Blood Pressure 130/90 Pulse Oximetry 96 MDM - Extremity Injury (Lower) Imaging Data Extremity x-ray #1: Radiologist's Impression: PROCEDURE: XR ANKLE RT MIN 3V INDICATIONS: pain injury- hit ankle against bed TECHNIQUE: 3 views of the ankle were acquired. COMPARISON: None. FINDINGS: Bones: No fractures or dislocations. Ankle mortise is normally aligned. No suspicious bony lesions. Soft tissues: No tibiotalar joint effusion. Achilles tendon appears normal. IMPRESSION: No acute ankle fracture or dislocation. Ankle mortise is intact. Dictated by: Alfredo Jaimes M.D. on 10/05/2020 at 8:43 Discharge Plan Departure Patient Disposition: Home Clinical Impression: Right ankle sprain Qualifiers: Encounter type: initial encounter Involved ligament of ankle: other ligament Qualified Code(s): S93.491A - Sprain of other ligament of right ankle, initial encounter Instructions: Ankle Sprain Activity Restrictions/Additional Instructions: *You have been diagnosed with right ankle sprain *What to do: Increase activity as tolerated. May use crutches if needed. Elevate, ice 20-30 minutes at a time *Continue to take medications as directed Ibuprofen 600 mg every 6-8 hours if needed for [id number] pain *Follow up with your primary care provider in 2-3 days *Return to ER if you should have increasing pain swelling redness or any new, worsening or concerning symptoms Prescriptions: No Action ipratropium-albuterol 3 ML solution for nebulization 3 ml INH Q6H PRNQty: 100 RF: 3 lisinopril-hydrochlorothiazide 10 MG/12.5 MG tablet 1 tab PO QDAY Qty: 90 RF: 3 fluticasone propion-salmeterol [Advair HFA] 45-21 mcg/actuation Hfa Aerosol Inhaler INH Qty: 0 RF: 0 fluticasone propion-salmeterol [Advair Diskus] 250 MCG/50 MCG blister with device 1 puff INH BID Qty: 1 RF: 3 hydrocodone-acetaminophen [Vicodin] 5 MG/300 MG tablet 1 tab PO Q4HP PRNQty: 0 RF: 0 prednisone 20 MG tablet 20 mg PO SEE INSTRUCTIONS Qty: 10 RF: 0 prednisone 50 mg tablet 50 mg PO DAILY Qty: 5 RF: 0 levofloxacin [Levaquin] 750 mg tablet 750 mg PO DAILY Qty: 5 RF: 0 Referrals: Jossy Fowler MD [Primary Care Provider] -
--- NOTE | 2020-10-05 08:12 | DI.RAD.S_ITS ---
PROCEDURE: XR ANKLE RT MIN 3V INDICATIONS: pain injury- hit ankle against bed TECHNIQUE: 3 views of the ankle were acquired. COMPARISON: None. FINDINGS: Bones: No fractures or dislocations. Ankle mortise is normally aligned. No suspicious bony lesions. Soft tissues: No tibiotalar joint effusion. Achilles tendon appears normal. IMPRESSION: No acute ankle fracture or dislocation. Ankle mortise is intact. Dictated by: Alfredo Jaimes M.D. on 10/05/2020 at 8:43 Approved by: Alfredo Jaimes M.D. on 10/05/2020 at 8:43
== END 2020-10-05 08:52 | disposition home or self-care (01) ==
PROVIDERS: Emergency Provider Emergency Medicine; PCP Internal Medicine
DX: S93.491A Sprain of other ligament of right ankle, initial encounter (principal); W22.8XXA Striking against or struck by other objects, initial encounter
CPT/HCPCS: 73610; 99283

== ENCOUNTER → 2021-08-22 07:41 | Outpatient (CLI) | payer OTHER, MEDICAID, SELFPAY ==
[2021-08-22 08:39] LABS: BUN Creatinine Ratio 22.6 (6-22); Blood Urea Nitrogen 21 mg/dL (7-17); Calcium 9.3 mg/dL (8.4-10.2); Carbon Dioxide 31 mmol/L (22-32); Chloride 106 mmol/L (98-107); Estimated Glomerular Filt Rate > 60.0 mL/min (>60); Glucose 101 mg/dL (80-110); HEMOLYSIS < 15 (0-50); Potassium 4.5 mmol/L (3.4-5.1); Sodium 141 mmol/L (137-145)
== END ==
PROVIDERS: PCP Internal Medicine; Referring Provider Urology; Visit Provider Urology
DX: N20.0 Calculus of kidney (principal); R31.0 Gross hematuria
CPT/HCPCS: 36415; 80048

== ENCOUNTER → 2021-08-23 09:43 | Outpatient (CLI) | payer OTHER, SELFPAY ==
--- NOTE | 2021-08-23 | DI.CT.S_ITS ---
PROCEDURE: CT ABDOMEN PELVIS WO/W CON INDICATIONS: Calculus of kidney TECHNIQUE: Optional 5 mm thick noncontrast images acquired from the diaphragm to the symphysis pubis. After the administration of intravenous contrast, 5 mm thick images acquired from the diaphragm to the symphysis pubis after a 10-minute delay. 2 mm thick coronal and sagittal reformats were then performed of the kidneys and ureters. For radiation dose reduction, the following was used: automated exposure control, adjustment of mA and/or kV according to patient size. COMPARISON: [facility], CT, CT ABDOMEN PELVIS WO CON, 03/15/2019, 8:12. FINDINGS: Image quality: Excellent. Lung bases: Lung bases are clear. Heart size is normal. Urinary system: The left kidney is mildly atrophic within irregular lobulated surface that may be secondary to chronic scarring or persistent lobulations. Simple appearing cysts are seen in the left kidney. Both kidneys are normal in size, without hydronephrosis. Multiple bilateral renal calculi are seen, greater on the left. The largest calculi measure up to 4 mm at the superior and inferior pole of the left kidney and up to 3 mm at the inferior pole of the right kidney. No perinephric fat stranding. There is normal bilateral renal enhancement. Renal calyces appear normal in morphology when filled with contrast. Opacified portions of both ureters demonstrate normal caliber. Bladder wall thickness is normal. No calcified bladder stones. Other solid organs: Liver is normal in size and enhancement. Gallbladder is unremarkable. Biliary system is non dilated. Pancreas enhances normally. Spleen is mildly enlarged. No adrenal nodules. Peritoneum and bowel: Small hiatal hernia. Bowel loops demonstrate normal wall thickness and caliber. No pneumoperitoneum. Trace nonspecific free fluid in the pelvis. Nodes and vessels: Mild nonspecific rené appearance of the small bowel mesentery. No retroperitoneal or mesenteric adenopathy by size criteria. Aorta and inferior vena cava are normal in size. Abdominal wall: Tiny fat containing periumbilical hernia. Pelvis: Stable small bilateral fat containing inguinal hernias. Bones: No suspicious bony lesions. No vertebral body compression fractures. Degenerative changes are seen in the sacroiliac joints and spine. IMPRESSION: 1. No suspicious urothelial lesion. 2. Multiple bilateral nonobstructing calculi measuring up to 4 mm, which appear similar when compared to the CT from 03/15/2019. No hydronephrosis. 3. Mild splenomegaly. 4. Small hiatal hernia. Dictated by: Dao Sorto M.D. on 08/23/2021 at 10:59 Approved by: Dao Sorto M.D. on 08/23/2021 at 11:10
== END ==
PROVIDERS: PCP Internal Medicine; Referring Provider Student in an Organized Health Care Education/Training Program; Visit Provider Student in an Organized Health Care Education/Training Program
DX: N20.0 Calculus of kidney (principal); R31.0 Gross hematuria; R16.1 Splenomegaly, not elsewhere classified; K44.9 Diaphragmatic hernia without obstruction or gangrene
CPT/HCPCS: 74178

== ENCOUNTER 2021-11-22 12:35 | Emergency (ER) | payer OTHER, MEDICAID, SELFPAY ==
[2021-11-22 12:46] VITALS: BP 145/85; PULSE 97; RESP 20; TEMP 36.1; O2SAT 97; BMI 33.4
--- NOTE | 2021-11-22 13:26 | DI.US.S_ITS ---
PROCEDURE: US PERIPH VENOUS LOW EXTREM LT INDICATIONS: LEFT KNEE SWELLING TECHNIQUE: Real-time imaging, as well as color and pulse Doppler interrogation, were performed of the lower extremity deep veins from the inguinal ligament to the popliteal fossa. COMPARISON: None. FINDINGS: The common femoral, femoral and popliteal veins are normally compressible, and free of intraluminal thrombus. Color and pulse Doppler demonstrate normal phasic intraluminal flow. There is normal augmentation response to distal compression maneuver. Along the anterior aspect knee, there is an irregularly shaped fluid collection 4.9 x 0.9 x 6 cm. IMPRESSION: Negative for deep venous thrombosis. Non-specific fluid collection along anterior aspect knee. Dictated by: Jimmy Hernandez M.D. on 11/22/2021 at 12:38 Approved by: Jimmy Hernandez M.D. on 11/22/2021 at 12:39
--- NOTE | 2021-11-22 15:38 | ED_ITS ---
HPI - Extremity Problem <Selwyn Bedolla PA-C - Last Filed: 11/22/21 18:18> General Chief complaint: Extremity Problem,Nontraumatic Stated complaint: DVT in Left Leg Time Seen by Provider: 11/22/21 14:26 Source: patient Mode of arrival: Ambulatory History of Present Illness HPI Narrative: This is a 61-year-old female presenting to the emergency department due to acute onset left lower extremity edema which she suspects is secondary to her sitting at her desk. Patient denies any acute injury to the knee or left lower extremity but is concerned that she may have a blood clot. Denies any numbness, chest pain, shortness of breath, or any other concerning signs or symptoms. Related Data Home Medications Medication Instructions Recorded Confirmed fluticasone propionate 45 INH #0 03/24/17 mcg-salmeterol 21 mcg/actuation HFA inhaler (Advair HFA) hydrocodone 5 mg-acetaminophen 300 1 tab PO Q4HP PRN #0 09/14/17 mg tablet (Vicodin) Previous Rx's Medication Instructions Recorded ipratropium 0.5 mg-albuterol 3 mg 3 ml INH Q6H PRN #100 02/16/17 (2.5 mg base)/3 mL nebulization soln lisinopril 10 1 tab PO QDAY #90 02/16/17 mg-hydrochlorothiazide 12.5 mg tablet fluticasone 250 mcg-salmeterol 50 1 puff INH BID #1 ea 06/15/17 mcg/dose blistr powdr for inhalation (Advair Diskus) prednisone 20 mg tablet 20 mg PO SEE INSTRUCTIONS #10 tab 12/29/17 levofloxacin 750 mg tablet 750 mg PO DAILY #5 tab 09/23/18 (Levaquin) prednisone 50 mg tablet 50 mg PO DAILY #5 tab 09/23/18 Allergies Allergy/AdvReac Type Severity Reaction Status Date / Time iodine [IODINE] AdvReac Mild iv Verified 10/05/20 08:06 contrast - weird feeling Review of Systems <Selwyn Bedolla PA-C - Last Filed: 11/22/21 18:18> Review of Systems Narrative: See HPI. Patient History <Selwyn Bedolla PA-C - Last Filed: 11/22/21 18:18> Medical History Asthma Surgical History History of tonsillectomy Status post hysterectomy Status post parathyroidectomy Family History Father Hypertension Mother Hypertension Grandmother Hypertension Social History Smoking Status: Never smoker Smoking Status: Never smoker Substance Use Type: does not use Exam <Selwyn Bedolla PA-C - Last Filed: 11/22/21 18:18> Initial Vital Signs Initial Vital Signs: Vital Signs Temperature 97.0 F L 11/22/21 12:46 Pulse Rate 97 H 11/22/21 12:46 Respiratory Rate 20 11/22/21 12:46 Blood Pressure 145/85 H 11/22/21 12:46 Pulse Oximetry 97 11/22/21 12:46 Const General: cooperative and healthy appearing Extrem Other: Left knee has very minimal edema. No noticeable edema in left calf. No warmth to the joint area. No erythema. Distally neurovascularly intact. <Dameon Low DO - Last Filed: 11/23/21 07:39> Initial Vital Signs Initial Vital Signs: Vital Signs Temperature 97.0 F L 11/22/21 12:46 Pulse Rate 97 H 11/22/21 12:46 Respiratory Rate 20 11/22/21 12:46 Blood Pressure 145/85 H 11/22/21 12:46 Pulse Oximetry 97 11/22/21 12:46 Course <Selwyn Bedolla PA-C - Last Filed: 11/22/21 18:18> Orders Ordered: ED Orders 11/22/21 13:26 perip venous low extrem lt Stat Vital Signs Vital signs: Vital Signs - 8 hr 11/22/21 12:46 Temperature 97.0 F L Pulse Rate 97 H Respiratory Rate 20 Blood Pressure 145/85 H Pulse Oximetry 97 <Dameon Low DO - Last Filed: 11/23/21 07:39> Orders Ordered: ED Orders 11/22/21 13:26 perip venous low extrem lt Stat Vital Signs Vital signs: Vital Signs - 8 hr 11/22/21 12:46 Temperature 97.0 F L Pulse Rate 97 H Respiratory Rate 20 Blood Pressure 145/85 H Pulse Oximetry 97 MDM - Extremity (Nontraumatic) <Selwyn Bedolla PA-C - Last Filed: 11/22/21 18:18> Imaging Data US - DVT: Radiologist's Impression: [address] [address] Ultrasound Report Signed Patient: Mouna Darby MR#: [id number] : 1960 Acct:[id number] Age/Sex: 61 / F Date of Service: 11/22/21 Loc: ED Accession Number: [id number] ?? Procedure: US periph venous low extrem lt Ordering Provider: Selwyn Bedolla P.A-C PROCEDURE:? US PERIPH VENOUS LOW EXTREM LT ? INDICATIONS:? LEFT KNEE SWELLING ? TECHNIQUE:? Real-time imaging, as well as color and pulse Doppler interrogation, were performed of the lower extremity deep veins from the inguinal ligament to the popliteal fossa.? ? COMPARISON:? None. ? FINDINGS:? The common femoral, femoral and popliteal veins are normally compressible, and free of intraluminal thrombus.? Color and pulse Doppler demonstrate normal phasic intraluminal flow.? There is normal augmentation response to distal compression maneuver. ? ? Along the anterior aspect knee, there is an irregularly shaped fluid collection 4.9 x 0.9 x 6 cm. ? ? IMPRESSION:? ? Negative for deep venous thrombosis. ? Non-specific fluid collection along anterior aspect knee.? ? ? Dictated by: Jimmy Hernandez M.D. on 11/22/2021 at 12:38 ? ? Approved by: Jimmy Hernandez M.D. on 11/22/2021 at 12:39 ? Discharge Plan Departure Patient Disposition: Home Clinical Impression: Joint swelling of lower leg Instructions: How To Perform RICE (Rest, Ice, Compress, Elevate) Activity Restrictions/Additional Instructions: Thank you for coming to [facility] Emergency Department. The ultrasound showed no evidence of blood clot in your leg. It did show a small collection of fluid which I suspect should improve with rest, ice, compression, and elevation. Please also use ibuprofen as it is an anti-inflammatory that will help with inflammation and pain. Please speak with your primary care provider for further evaluation next week. Prescriptions: No Action ipratropium-albuterol 3 ML solution for nebulization 3 ml INH Q6H PRNQty: 100 3RF lisinopril-hydrochlorothiazide 10 MG/12.5 MG tablet 1 tab PO QDAY Qty: 90 3RF fluticasone propion-salmeterol [Advair HFA] 45-21 mcg/actuation Hfa Aerosol Inhaler INH Qty: 0 0RF fluticasone propion-salmeterol [Advair Diskus] 250 MCG/50 MCG blister with device 1 puff INH BID Qty: 1 3RF hydrocodone-acetaminophen [Vicodin] 5 MG/300 MG tablet 1 tab PO Q4HP PRNQty: 0 0RF prednisone 20 MG tablet 20 mg PO SEE INSTRUCTIONS Qty: 10 0RF prednisone 50 mg tablet 50 mg PO DAILY Qty: 5 0RF levofloxacin [Levaquin] 750 mg tablet 750 mg PO DAILY Qty: 5 0RF <Dameon Low DO - Last Filed: 11/23/21 07:39> [facility] I was immediately available in the department for consultation. This documentation has been reviewed and I agree with assessment and plan. Supervised by Dameon Low DO
== END 2021-11-22 15:58 | disposition home or self-care (01) ==
PROVIDERS: Emergency Provider Physician Assistant Medical
DX: M25.462 Effusion, left knee (principal)
CPT/HCPCS: 93971; 99283; 99284

== ENCOUNTER 2022-12-22 15:55 | Emergency (ER) | payer OTHER, MEDICAID, SELFPAY ==
[2022-12-22] VITALS (14 sets, daily range): BP systolic 138–171; BP diastolic 76–99; PULSE 83–102; RESP 18–40; TEMP 36.7; O2SAT 91–97; BMI 33.6
--- NOTE | 2022-12-22 16:17 | ED_ITS ---
HPI - General Adult General Chief complaint: Shortness of Breath/Dyspnea Stated complaint: coughing/hard to breathe/sob/body aches Time Seen by Provider: 12/22/22 16:09 Source: patient Mode of arrival: Ambulatory History of Present Illness HPI narrative: Patient is a 62-year-old female. Has a history of asthma. Does have a nebulizer and also albuterol inhaler at home which she is been doing frequently over the past week. Has also had a sore throat and fevers and runny nose for the past week as well is here for evaluation of continued wheezing. She is concerned about pneumonia. She has had a productive cough. No chest pain. No urinary symptoms. No change in bowels. No skin changes. Related Data Home Medications Medication Instructions Recorded Confirmed fluticasone propionate 45 INH ##0 03/24/17 mcg-salmeterol 21 mcg/actuation HFA inhaler (Advair HFA) hydrocodone 5 mg-acetaminophen 300 1 tab PO Q4HP PRN ##0 09/14/17 mg tablet (Vicodin) Previous Rx's Medication Instructions Recorded ipratropium 0.5 mg-albuterol 3 mg 3 ml INH Q6H PRN ##100 02/16/17 (2.5 mg base)/3 mL nebulization soln lisinopril 10 1 tab PO QDAY ##90 02/16/17 mg-hydrochlorothiazide 12.5 mg tablet fluticasone 250 mcg-salmeterol 50 1 puff INH BID #1 ea 06/15/17 mcg/dose blistr powdr for inhalation (Advair Diskus) prednisone 20 mg tablet 20 mg PO SEE INSTRUCTIONS #10 tabs 12/29/17 levofloxacin 750 mg tablet 750 mg PO DAILY #5 tabs 09/23/18 (Levaquin) prednisone 50 mg tablet 50 mg PO DAILY #5 tabs 09/23/18 azithromycin 250 mg tablet 250 mg PO DAILY 4 days #4 tabs 12/22/22 prednisone 20 mg tablet 20 mg PO DAILY #14 tabs 12/22/22 Allergies Allergy/AdvReac Type Severity Reaction Status Date / Time iodine [IODINE] AdvReac Mild iv Verified 10/05/20 08:06 contrast - weird feeling Review of Systems Constitutional Constitutional: Reports system reviewed and no additional complaints, except as documented Cardiovascular Cardiovascular: Reports system reviewed and no additional complaints, except as documented Respiratory Respiratory: Reports system reviewed and no additional complaints, except as documented Gastrointestinal Gastrointestinal: Reports system reviewed and no additional complaints, except as documented Integumentary/Breasts Skin/Breast: Reports system reviewed and no additional complaints, except as documented Neurologic Neurologic: Reports system reviewed and no additional complaints, except as documented Hematologic/Lymphatic On Anticoagulants: No Patient History Medical History Asthma Surgical History History of tonsillectomy Status post hysterectomy Status post parathyroidectomy Family History Father Hypertension Mother Hypertension Grandmother Hypertension Social History Smoking Status: Never smoker Smoking Status: Never smoker Substance Use Type: does not use Exam Initial Vital Signs Initial Vital Signs: Vital Signs Temperature 98.0 F 12/22/22 16:01 Pulse Rate 96 H 12/22/22 16:01 Respiratory Rate 40 H 12/22/22 16:01 Blood Pressure 171/99 H 12/22/22 16:01 Pulse Oximetry 94 12/22/22 16:01 Oxygen Delivery Method Room Air 12/22/22 16:01 HENMT Head: normal to inspection and normocephalic Resp Effort & Inspection: cough, no respiratory distress, no retractions and tachypneic Auscultation: rhonchi and wheezes Cardio Rate: regular rate Rhythm: regular rhythm GI Inspection: normal to inspection Skin General: no rashes or lesions noted Extrem General: normal to inspection and capillary refill normal Course Orders Ordered: ED Orders 12/22/22 16:18 XR chest 1V Stat Respiratory Panel (Film Array) Stat Discontinued Medications Albuterol/Ipratropium (Albuterol/Ipratropium 3 Ml Ampul) 3 ml INH NOW ONE Stop: 12/22/22 17:09 Last Admin: 12/22/22 17:15 Dose: 3 ml Documented By: KATLIN Albuterol/Ipratropium (Albuterol/Ipratropium 3 Ml Ampul) 3 ml INH NOW ONE Stop: 12/22/22 17:09 Last Admin: 12/22/22 18:05 Dose: 3 ml Documented By: KATLIN Albuterol/Ipratropium (Albuterol/Ipratropium 3 Ml Ampul) 3 ml INH NOW ONE Stop: 12/22/22 17:59 Last Admin: 12/22/22 18:05 Dose: Not Given Documented By: KATLIN Azithromycin (Azithromycin 250 Mg Tablet) 500 mg PO NOW ONE Stop: 12/22/22 17:59 Last Admin: 12/22/22 18:28 Dose: 500 mg Budesonide (Budesonide 0.5 Mg/2 Ml Neb) 0.5 mg INH NOW ONE Stop: 12/22/22 16:19 Last Admin: 12/22/22 16:23 Dose: 0.5 mg Documented By: KATLIN Methylprednisolone (Methylprednisolone 125 Mg/2 Ml Vial) 125 mg IV NOW ONE Stop: 12/22/22 16:19 Last Admin: 12/22/22 16:44 Dose: 125 mg Documented By: RB Vital Signs Vital signs: Vital Signs - 8 hr 12/22/22 16:01 12/22/22 16:25 12/22/22 16:33 Temperature 98.0 F Pulse Rate 96 H Respiratory Rate 40 H Blood Pressure 171/99 H 138/90 Pulse Oximetry 94 Oxygen Delivery Method Room Air Room Air 12/22/22 16:35 12/22/22 16:45 12/22/22 17:15 Temperature Pulse Rate 90 83 Respiratory Rate 20 Blood Pressure Pulse Oximetry 93 93 Oxygen Delivery Method Room Air 12/22/22 17:00 12/22/22 17:01 12/22/22 17:01 Temperature Pulse Rate 84 84 Respiratory Rate 20 18 Blood Pressure 139/76 Pulse Oximetry 94 94 Oxygen Delivery Method 12/22/22 17:15 12/22/22 17:30 12/22/22 17:30 Temperature Pulse Rate 89 86 Respiratory Rate 21 Blood Pressure 144/76 H Pulse Oximetry 97 92 Oxygen Delivery Method 12/22/22 17:45 12/22/22 17:49 12/22/22 17:49 Temperature Pulse Rate 90 90 Respiratory Rate 22 25 H Blood Pressure 157/95 H Pulse Oximetry 94 94 Oxygen Delivery Method 12/22/22 18:05 Temperature Pulse Rate Respiratory Rate Blood Pressure Pulse Oximetry 94 Oxygen Delivery Method Room Air Medical Decision Making Imaging Data Chest x-ray: Radiologist's Impression: PROCEDURE:? XR CHEST 1V ? INDICATIONS:? fever and cough eval for PNA ? TECHNIQUE:? One view of the chest was acquired.? ? COMPARISON:? [facility], CR, XR CHEST 2V, 01/29/2019, 11:02.? [facility], CR, XR CHEST 2V, 09/22/2018, 23:34. ? FINDINGS:? ? Surgical changes and devices:? None.? ? Lungs and pleura:? Hazy right basilar airspace opacity. ? Mediastinum:? Mediastinal contours appear normal.? Heart size is normal.? ? Bones and chest wall:? No suspicious bony lesions.? Overlying soft tissues appear unremarkable.? ? IMPRESSION:? Hazy right basilar airspace opacity could represent early pneumonia versus atelectasis. MDM Narrative Medical decision making narrative: Patient did have audible wheezing upon arrival. Was not hypoxic. Received multiple nebulizer treatments and steroids the patient states she feels much better afterwards. Her chest x-ray is concerning for pneumonia. Given her asthma history we will treat her with antibiotics. Will send home with steroids as well. She was given care instructions and return precautions. Patient expressed understanding and agreement with plan. Discharge Plan Departure Patient Disposition: Home Clinical Impression: Pneumonia, Asthma exacerbation Instructions: Asthma -- Adult, DI for Pneumonia -- Adult Activity Restrictions/Additional Instructions: I do recommend that you continue to take all of your medications as directed. We are going to send her home with a prescription for antibiotics and also steroids. Please take the antibiotics as directed. I recommend that you take the steroids once a day for the next couple days as needed. You may have extra of the steroid if your symptoms resolve before completing the course. Contact your primary doctor for follow-up. Return to the emergency department for new symptoms. Prescriptions: New azithromycin 250 mg tablet 250 mg PO DAILY 4 Days Qty: 4 0RF Rx Instructions: start on day 2 of therapy prednisone 20 mg tablet 20 mg PO DAILY Qty: 14 0RF No Action ipratropium-albuterol 3 ML solution for nebulization 3 ml INH Q6H PRNQty: 100 3RF lisinopril-hydrochlorothiazide 10 MG/12.5 MG tablet 1 tab PO QDAY Qty: 90 3RF fluticasone propion-salmeterol [Advair HFA] 45-21 mcg/actuation Hfa Aerosol Inhaler INH Qty: 0 fluticasone propion-salmeterol [Advair Diskus] 250 MCG/50 MCG blister with device 1 puff INH BID Qty: 1 3RF hydrocodone-acetaminophen [Vicodin] 5 MG/300 MG tablet 1 tab PO Q4HP PRNQty: 0 prednisone 20 MG tablet 20 mg PO SEE INSTRUCTIONS Qty: 10 0RF prednisone 50 mg tablet 50 mg PO DAILY Qty: 5 0RF levofloxacin [Levaquin] 750 mg tablet 750 mg PO DAILY Qty: 5 0RF Stand Alone Forms: Patient Portal/API
--- NOTE | 2022-12-22 16:18 | DI.RAD.S_ITS ---
PROCEDURE: XR CHEST 1V INDICATIONS: fever and cough eval for PNA TECHNIQUE: One view of the chest was acquired. COMPARISON: [facility], CR, XR CHEST 2V, 01/29/2019, 11:02. [facility], CR, XR CHEST 2V, 09/22/2018, 23:34. FINDINGS: Surgical changes and devices: None. Lungs and pleura: Hazy right basilar airspace opacity. Mediastinum: Mediastinal contours appear normal. Heart size is normal. Bones and chest wall: No suspicious bony lesions. Overlying soft tissues appear unremarkable. IMPRESSION: Hazy right basilar airspace opacity could represent early pneumonia versus atelectasis. Dictated by: Pierre Collado M.D. on 12/22/2022 at 16:56 Approved by: Pierre Collado M.D. on 12/22/2022 at 16:57
[2022-12-22] MEDS: BUDESONIDE 0.5 MG/2 ML NEB INH (16:23)
[2022-12-22] MEDS: methylPREDNISolone 125 MG/2 ML VIAL IV (16:44)
[2022-12-22] MEDS: ALBUTEROL/IPRATROPIUM 3 ML AMPUL INH ×2 (17:15→18:05)
--- NOTE | 2022-12-22 17:32 | PC.NURSE ---
Patient reports severe pain with blood pressure cuff running, repositioned various times with different cuffs and pt continues to report severe pain. Educated pt on importance of blood pressure readings with vital signs, pt observed removing cuff.
[2022-12-22] MEDS: AZITHROMYCIN 250 MG TABLET 500 MG PO (18:28)
[2022-12-22 19:37] LABS: Adenovirus Not Detected (Not Detect); B. parapertussis Not Detected (Not Detecte); Bordetella pertussis Not Detected (Not Detecte); Chlamydophila pneumoniae Not Detected (Not Detect); Coronavirus 229E Not Detected (Not Detect); Coronavirus HKU1 Not Detected (Not Detect); Coronavirus NL 63 Not Detected (Not Detect); Coronavirus OC43 Not Detected (Not Detect); Human Metapneumovirus Not Detected (Not Detect); Human Rhinovirus/Enterovirus Detected (Not Detect); Influenza A Not Detected (Not Detect); Influenza B Not Detected (Not Detect); Mycoplasma pneumoniae Not Detected (Not Detect); Parainfluenza Virus 1 Not Detected (Not Detect); Parainfluenza Virus 2 Not Detected (Not Detect); Parainfluenza Virus 3 Not Detected (Not Detect); Parainfluenza Virus 4 Not Detected (Not Detect); Respiratory Syncytial Virus Not Detected (Not Detect); SARS- CoV-2 Not Detected (Not Detecte)
== END 2022-12-22 18:46 | disposition home or self-care (01) ==
PROVIDERS: Emergency Provider Emergency Medicine
DX: J18.9 Pneumonia, unspecified organism (principal); J45.901 Unspecified asthma with (acute) exacerbation; J02.9 Acute pharyngitis, unspecified; Z79.899 Other long term (current) drug therapy; Z20.822 Contact with and (suspected) exposure to COVID-19
CPT/HCPCS: 36415; 71045; 87633; 94640; 96374; 99284; J2930

== ENCOUNTER → 2023-02-11 16:24 | Outpatient (CLI) | payer OTHER, MEDICAID, SELFPAY ==
[2023-02-11 17:23] LABS: Add Manual Diff / Slide Review NO; Basophils Absolute Auto 0 /uL (0-100); Basophils Percent Auto 0.9 % (0-2); Eosinophils Absolute Auto 200 /uL (0-450); Eosinophils Percent Auto 5.1 % (2-4); Hematocrit 37.7 % (36-46); Lymphocytes Absolute Auto 1400 /uL (1100-4500); Lymphocytes Percent Auto 28.5 % (25-40); Mean Corpuscular HGB Conc 34.5 % (30-36); Mean Corpuscular Hemoglobin 31.2 PG (26-34); Mean Corpuscular Volume 90.5 fL (80-100); Monocytes Absolute Auto 500 /uL (0-900); Monocytes Percent Auto 9.7 % (3-14); Neutrophils Absolute Auto 2700 /uL (1500-7000); Neutrophils Percent Auto 55.8 % (50-75); Platelet Count 203 X10^3/uL (150-400); Red Blood Cell Count 4.17 X10^6/uL (4.0-5.2); Red Cell Distribution Width 12.9 % (11.6-14.8); White Blood Cell Count 4.9 X10^3/uL (4.5-11.0)
[2023-02-11 17:55] LABS: Alanine Aminotransferase 26 IU/L (<35); Albumin 4.5 g/dL (3.5-5.0); Albumin Globulin Ratio 1.5 (1.0-2.8); Alkaline Phosphatase 81 U/L (38-126); Aspartate Aminotransferase 30 IU/L (14-36); BUN Creatinine Ratio 35.7 (6-22); Bilirubin Total 0.5 mg/dL (0.2-1.3); Blood Urea Nitrogen 25 mg/dL (7-17); Calcium 8.8 mg/dL (8.4-10.2); Carbon Dioxide 32 mmol/L (22-32); Chloride 102 mmol/L (98-107); Estimated Glomerular Filt Rate > 60 mL/min (>60); Globulin 3.1 g/dL (1.7-4.1); Glucose 90 mg/dL (80-110); Sodium 139 mmol/L (137-145); Total Protein 7.6 g/dL (6.3-8.2); Uric Acid 4.5 mg/dL (2.5-6.2)
[2023-02-11 18:11] LABS: Vitamin D 25 Hydroxy (D3) 21.5 ng/mL (30.0-100.0)
[2023-02-11 18:25] LABS: TSH w/ Reflex to FT4 0.98 uIU/mL (0.47-4.68)
[2023-02-12 04:26] LABS: Labcorp Hemoglobin (Hb) A1c 5.4 % (4.8-5.6)
[2023-02-16 14:54] LABS: HEMOLYSIS 17 (0-50); Vitamin B12 370 pg/mL (239-931)
== END ==
PROVIDERS: PCP Family Medicine; Referring Provider Family Medicine; Visit Provider Family Medicine
DX: D49.7 Neoplasm of unspecified behavior of endocrine glands and other parts of nervous system (principal); I10 Essential (primary) hypertension; M81.0 Age-related osteoporosis without current pathological fracture
CPT/HCPCS: 36415; 80053; 82306; 82607; 83036; 84443; 84550; 85025

== ENCOUNTER 2023-02-17 20:38 | Emergency (ER) | payer OTHER, MEDICAID, SELFPAY ==
[2023-02-17 20:42] VITALS: BP 137/88; PULSE 90; RESP 18; TEMP 36.5; O2SAT 97; BMI 33.6
--- NOTE | 2023-02-17 20:50 | DI.RAD.S_ITS ---
PROCEDURE: XR WRIST LT MIN 3V INDICATIONS: pain, bruising, swelling TECHNIQUE: 4 views of the wrist were acquired. COMPARISON: None. FINDINGS: Bones: No fractures or dislocations. No suspicious bony lesions. Scaphoid view: The scaphoid appears intact. Soft tissues: No suspicious soft tissue calcifications. IMPRESSION: 1. No fracture or dislocation. Dictated by: Jimmie Vazquez M.D. on 02/17/2023 at 22:27 Approved by: Jimmie Vazquez M.D. on 02/17/2023 at 22:28
--- NOTE | 2023-02-17 22:04 | PC.NURSE ---
Hit left wrist on door knob while carrying a heavy box on February 12. Still painful/swollen.
--- NOTE | 2023-02-17 22:12 | ED.GENADULT ---
HPI - General Adult General Chief complaint: Extremity Injury, Upper Stated complaint: lt wrist pain Time Seen by Provider: 02/17/23 22:06 Source: patient Mode of arrival: Ambulatory History of Present Illness HPI narrative: 62-year-old female who several days ago hit her left wrist/forearm on a wall. Has had discomfort in that area since then. Some bruising. She did wrap it with an Camilo bandage over the past couple days. Has taken some ibuprofen prior to coming in. Related Data Home Medications Medication Instructions Recorded Confirmed montelukast 10 mg tablet 10 mg PO DAILY 01/12/23 02/11/23 Previous Rx's Medication Instructions Recorded albuterol sulfate 2.5 mg/3 mL 2.5 mg (3 mL) inhalation Q4H PRN 12/22/22 (0.083 %) solution for nebulization shortness of breath or wheezing #75 mL albuterol sulfate 90 mcg/actuation 2 puff inhalation Q4-6H PRN 12/22/22 aerosol inhaler shortness of breath or wheezing #8.5 grams lisinopril 10 mg tablet 10 mg PO DAILY #90 tabs 01/27/23 fluticasone propionate 230 2 puff inhalation BID #12 grams 02/11/23 mcg-salmeterol 21 mcg/actuation HFA inhaler (Advair HFA) Allergies Allergy/AdvReac Type Severity Reaction Status Date / Time iodine [IODINE] AdvReac Mild iv Verified 02/11/23 15:36 contrast - weird feeling Review of Systems Constitutional Constitutional: Reports system reviewed and no additional complaints, except as documented Musculoskeletal Musculoskeletal: Reports system reviewed and no additional complaints, except as documented Integumentary/Breasts Skin/Breast: Reports system reviewed and no additional complaints, except as documented Neurologic Neurologic: Reports system reviewed and no additional complaints, except as documented Patient History Medical History Anemia (~2007) Asthma Benign essential HTN Family history of colon cancer Fecal incontinence (~2021) Herniated disc Hypertension (~2007) Hyperthyroidism (~2007) Measles (~1962) Melanoma (~2019) Osteoporosis Parathyroid tumor Skin cancer (~2019) Surgical History (Updated 02/10/23 @ 22:40 by Daya Redman) Anesthesia History of partial hysterectomy (~2013) History of tonsillectomy Status post hysterectomy Status post parathyroidectomy (~12/11/05) Family History (Updated 02/10/23 @ 22:44 by Daya Redman) Father Hypertension Cancer Mother Hypertension Grandmother Hypertension Cancer Brother Cancer Sister Cancer Grandfather Cancer Grandmother Pneumonia Grandfather Cancer Social History Smoking Status: Never smoker Smoking Status: Never smoker alcohol intake frequency: holidays/special occasions only Substance Use Type: does not use Exam Initial Vital Signs Initial Vital Signs: Vital Signs Temperature 97.7 F 02/17/23 20:42 Pulse Rate 90 02/17/23 20:42 Respiratory Rate 18 02/17/23 20:42 Blood Pressure 137/88 02/17/23 20:42 Pulse Oximetry 97 02/17/23 20:42 Oxygen Delivery Method Room Air 02/17/23 20:42 Skin General: no rashes or lesions noted Neuro Sensory Exam: no sensory deficits noted Extrem Other: Patient can pronate and supinate and flex and extend the left wrist. She does have some tenderness over the ulnar styloid. Course Orders Ordered: ED Orders 02/17/23 20:50 XR wrist LT min 3V Stat Vital Signs Vital signs: Vital Signs - 8 hr 02/17/23 20:42 02/17/23 22:40 Temperature 97.7 F Pulse Rate 90 77 Respiratory Rate 18 20 Blood Pressure 137/88 111/75 Pulse Oximetry 97 95 Oxygen Delivery Method Room Air Room Air Medical Decision Making Imaging Data Extremity x-ray #1: Radiologist's Impression: PROCEDURE:? XR WRIST LT MIN 3V ? INDICATIONS: pain, bruising, swelling ? TECHNIQUE:? 4 views of the wrist were acquired.? ? COMPARISON:? None. ? FINDINGS:? ? Bones:? No fractures or dislocations.? No suspicious bony lesions.? ? Scaphoid view:? The scaphoid appears intact. ? Soft tissues:? No suspicious soft tissue calcifications.? ? IMPRESSION:? ? 1. No fracture or dislocation. MDM Narrative Medical decision making narrative: X-ray is unremarkable, neurovascularly intact, patient was given an Camilo bandage that she could use as needed for comfort. No further workup required in the emergency department. She was given return precautions. Discharge Plan Departure Patient Disposition: Home Clinical Impression: Sprain of wrist, left Instructions: How To Perform RICE (Rest, Ice, Compress, Elevate), How to Apply an Elastic Wrap on Wrist Activity Restrictions/Additional Instructions: There were no fractures noted on the x-rays. You can use ice and ibuprofen. You can also rapid with an Camilo bandage. Return to the emergency department for new or worsening symptoms. Prescriptions: No Action lisinopril 10 mg tablet 10 mg PO DAILY Qty: 90 3RF montelukast 10 mg tablet 10 mg PO DAILY fluticasone propion-salmeterol [Advair HFA] 230-21 mcg/actuation HFA aerosol inhaler 2 puff inhalation BID Qty: 12 11RF albuterol sulfate 90 mcg/actuation HFA aerosol inhaler 2 puff inhalation Q4-6H PRN (Reason: shortness of breath or wheezing) Qty: 8.5 2RF albuterol sulfate 2.5 mg /3 mL (0.083 %) solution for nebulization 2.5 mg inhalation Q4H PRN (Reason: shortness of breath or wheezing) Qty: 75 2RF Referrals: Garett Bland DO [Primary Care Provider] - Stand Alone Forms: Patient Portal/API
[2023-02-17 22:40] VITALS: BP 111/75; PULSE 77; RESP 20; O2SAT 95
== END 2023-02-17 22:43 | disposition home or self-care (01) ==
PROVIDERS: Emergency Provider Emergency Medicine; PCP Family Medicine
DX: S63.502A Unspecified sprain of left wrist, initial encounter (principal); W22.01XA Walked into wall, initial encounter
CPT/HCPCS: 73110; 99283

== ENCOUNTER 2023-04-05 15:23 | Emergency (ER) | payer OTHER, MEDICAID, SELFPAY ==
[2023-04-05] VITALS (7 sets, daily range): BP systolic 119–142; BP diastolic 70–83; PULSE 80–89; RESP 14–22; TEMP 36.4; O2SAT 96–98; BMI 33.1
--- NOTE | 2023-04-05 15:34 | DI.US.S_ITS ---
PROCEDURE: US PERIPH VENOUS LOW EXTREM RT INDICATIONS: PAIN TECHNIQUE: Real-time imaging, as well as color and pulse Doppler interrogation, were performed of the lower extremity deep veins from the inguinal ligament to the popliteal fossa. COMPARISON: None. FINDINGS: The common femoral, femoral and popliteal veins are normally compressible, and free of intraluminal thrombus. Color and pulse Doppler demonstrate normal phasic intraluminal flow. There is normal augmentation response to distal compression maneuver. IMPRESSION: No evidence of deep venous thrombosis, right lower extremity Approved by: Ryne José M.D. on 04/05/2023 at 16:15
--- NOTE | 2023-04-05 15:58 | DI.RAD.S_ITS ---
PROCEDURE: XR CHEST 1V INDICATIONS: SOB TECHNIQUE: One view of the chest was acquired. COMPARISON: [facility], CR, XR CHEST 1V, 12/22/2022, 16:17. FINDINGS: Surgical changes and devices: None. Lungs and pleura: Lungs are clear. No pleural effusions or pneumothorax. Mediastinum: Mediastinal contours appear normal. Heart size is normal. Bones and chest wall: No suspicious bony lesions. Overlying soft tissues appear unremarkable. IMPRESSION: No acute cardiopulmonary findings Approved by: Ryne José M.D. on 04/05/2023 at 16:08
--- NOTE | 2023-04-05 16:00 | ED.LOWEXIN ---
HPI - Extremity Injury (Lower) General Chief Complaint: Extremity Injury, Lower Stated Complaint: Leg problems Time Seen by Provider: 04/05/23 15:42 History of Present Illness HPI Narrative: 62-year-old female presents with a chief complaint of pain to the lateral right calf in the absence of any known injury. About 1 week ago she had long distance travel and admits that she is sedentary work. She is short of breath more than normal and had been using her inhaler over the course of the day. She does have a history of melanoma as well. She states that she is been having cramps in her lateral calf and thought maybe her electrolytes were off so has been taking Pedialyte but has not had much in the way of relief. She denies any trauma or injury, she denies any redness or obvious swelling. She is had no fever or chills. Related Data Home Medications Medication Instructions Recorded Confirmed montelukast 10 mg tablet 10 mg PO DAILY 01/12/23 03/18/23 Previous Rx's Medication Instructions Recorded albuterol sulfate 2.5 mg/3 mL 2.5 mg (3 mL) inhalation Q4H PRN 12/22/22 (0.083 %) solution for nebulization shortness of breath or wheezing #75 mL albuterol sulfate 90 mcg/actuation 2 puff inhalation Q4-6H PRN 12/22/22 aerosol inhaler shortness of breath or wheezing #8.5 grams lisinopril 10 mg tablet 10 mg PO DAILY #90 tabs 01/27/23 fluticasone propionate 230 2 puff inhalation BID #12 grams 02/11/23 mcg-salmeterol 21 mcg/actuation HFA inhaler (Advair HFA) phentermine 37.5 mg tablet 37.5 mg PO DAILY #30 tabs 02/24/23 nystatin 100,000 unit/mL oral 1 ml buccal DAILY #473 mL 03/03/23 suspension peg 3350-electrolytes 236 240 ml PO Q10M #4,000 mL 03/12/23 gram-22.74 gram-6.74 gram-5.86 gram solution (Golytely) Allergies Allergy/AdvReac Type Severity Reaction Status Date / Time iodine [IODINE] AdvReac Mild iv Verified 03/18/23 08:29 contrast - weird feeling Review of Systems Review of Systems Narrative: GENERAL: Denies chills, fatigue, malaise, fever, sweats. HEENT: Denies sinus pain, ear pain, sore throat, difficulty swallowing, dizziness. RESPIRATORY: See HPI CARDIOVASCULAR: See HPI GASTROINTESTINAL: Denies nausea, vomiting, abdominal pain, diarrhea, constipation, melena. : Denies dysuria, frequency, incontinence, hematuria, urinary retention. MUSCULOSKELETAL: denies weakness, joint pain, or bony pain SKIN: Denies rash, skin lesions, or other NEUROLOGIC: Denies weakness, headache, numbness, change in speech, confusion, seizures, incoordination. PSYCHIATRIC: No concerning psychosocial issues. 12 point review of systems is negative except for those stated above Patient History Medical History Asthma Benign essential HTN Family history of colon cancer Herniated disc Hyperthyroidism (~2007) Measles (~1962) Melanoma (~2019) Parathyroid tumor Skin cancer (~2019) Surgical History Anesthesia History of partial hysterectomy (~2013) History of tonsillectomy Status post hysterectomy Status post parathyroidectomy (~12/11/05) Family History Father Hypertension Cancer Mother Hypertension Grandmother Hypertension Cancer Brother Cancer Sister Cancer Grandfather Cancer Grandmother Pneumonia Grandfather Cancer Social History Smoking Status: Never smoker Smoking Status: Never smoker alcohol intake frequency: holidays/special occasions only Substance Use Type: does not use Exam Narrative Exam Narrative: GENERAL: [62] year old patient appears stated age. Well-developed patient, in mild distress. HEAD: Atraumatic. Normocephalic. EYES: Pupils equal round and reactive. Extraocular motions intact. No scleral icterus. No injection or drainage. ENT: Nose without bleeding, purulent drainage. Throat without erythema, tonsillar hypertrophy or exudate. Airway patent. NECK: Trachea midline. Non tender CARDIOVASCULAR: Regular rate and rhythm without murmurs, gallops, or rubs. RESPIRATORY: Clear to auscultation. Breath sounds equal bilaterally. No wheezes, rales, or rhonchi. GASTROINTESTINAL: Abdomen soft, non-tender, nondistended. EXTREMITIES: Tenderness to palpation of right calf, most notable on the lateral aspect, no obvious swelling, erythema, induration or fluctuance No edema or joint tenderness. BACK: Nontender without deformity or crepitance. No flank tenderness. NEURO: AOx3. SKIN: No rash or erythema of visible areas Initial Vital Signs Initial Vital Signs: Vital Signs Temperature 97.5 F L 04/05/23 15:27 Pulse Rate 89 04/05/23 15:27 Respiratory Rate 16 04/05/23 15:27 Blood Pressure 134/82 04/05/23 15:27 Pulse Oximetry 96 04/05/23 15:27 Oxygen Delivery Method Room Air 04/05/23 15:27 Course Orders Ordered: ED Orders 04/05/23 15:34 US periph venous low extrem rt Stat 04/05/23 15:40 Complete Blood Count AUTO DIFF Stat Comprehensive Metabolic Panel Stat NT-proBNP (BNP-Adult 18+) Stat Troponin & CK Cardiac Panel Stat 04/05/23 15:49 EKG-12 Lead Stat 04/05/23 15:58 Chest [XR chest 1V] Stat 04/05/23 16:15 COVID19 -Nasal RAPID Stat Vital Signs Vital signs: Vital Signs - 8 hr 04/05/23 15:27 04/05/23 16:17 04/05/23 15:46 Temperature 97.5 F L Pulse Rate 89 86 Pulse Rate [Bilateral Dorsalis Pedis] 88 Respiratory Rate 16 16 Blood Pressure 134/82 Pulse Oximetry 96 98 Oxygen Delivery Method Room Air 04/05/23 15:47 04/05/23 15:47 04/05/23 16:00 Temperature Pulse Rate 83 Pulse Rate [Bilateral Dorsalis Pedis] Respiratory Rate 18 Blood Pressure 142/83 H 121/70 Pulse Oximetry 97 Oxygen Delivery Method 04/05/23 16:00 04/05/23 16:30 04/05/23 16:30 Temperature Pulse Rate 82 82 Pulse Rate [Bilateral Dorsalis Pedis] Respiratory Rate 21 22 Blood Pressure 125/81 Pulse Oximetry 96 97 Oxygen Delivery Method 04/05/23 17:00 04/05/23 17:00 Temperature Pulse Rate 80 Pulse Rate [Bilateral Dorsalis Pedis] Respiratory Rate 14 Blood Pressure 119/72 Pulse Oximetry 98 Oxygen Delivery Method MDM - Extremity Injury (Lower) Lab Data 04/05/23 15:40 04/05/23 15:40 Labs: Lab Results 04/05/23 04/05/23 04/05/23 Range/Units 15:40 15:40 16:15 WBC 5.1 (4.5-11.0) X10^3/uL RBC 4.11 (4.0-5.2) X10^6/uL Hgb 13.0 (12.0-16.0) g/dL Hct 37.0 (36-46) % MCV 90.1 (80-100) fL MCH 31.6 (26-34) PG MCHC 35.1 (30-36) % RDW 13.1 (11.6-14.8) % Plt Count 213 (150-400) X10^3/uL Neut % (Auto) 53.2 (50-75) % Lymph % (Auto) 30.9 (25-40) % [place] % (Auto) 11.2 (3-14) % Eos % (Auto) 3.8 (2-4) % Baso % (Auto) 0.9 (0-2) % Neut # (Auto) 2700 (1523-3830) /uL Lymph # (Auto) 1600 (8680-5278) /uL [place] # (Auto) 600 (0-900) /uL Eos # (Auto) 200 (0-450) /uL Baso # (Auto) 0 (0-100) /uL Sodium 137 (137-145) mmol/L Potassium 3.8 (3.4-5.1) mmol/L Chloride 100 (98-107) mmol/L Carbon Dioxide 31 (22-32) mmol/L BUN 24 H (7-17) mg/dL Creatinine 0.77 (0.52-1.04) mg/dL Estimated GFR > 60 (>60) mL/min BUN/Creatinine Ratio 31.2 H (6-22) Glucose 109 (80-110) mg/dL Calcium 9.1 (8.4-10.2) mg/dL Total Bilirubin 0.5 (0.2-1.3) mg/dL AST 31 (14-36) IU/L ALT 31 (<35) IU/L Alkaline Phosphatase 81 (38-126) U/L Total Creatine Kinase 110 (30-135) U/L Troponin I < 0.012 (0.01-0.034) ng/mL NT-Pro-B Natriuret Pep 137 H (<125) pg/mL Total Protein 7.6 (6.3-8.2) g/dL Albumin 4.3 (3.5-5.0) g/dL Globulin 3.3 (1.7-4.1) g/dL Albumin/Globulin Ratio 1.3 (1.0-2.8) SARS-CoV-2 (PCR) Negative (Negative) MDM Narrative Medical decision making narrative: CC: 62-year-old female with right lateral calf cramping for the past week Complicating co-morbidities: Age, recent travel Data collected from: Patient Medical records reviewed: Prior notes reviewed in our EMR Differential considered, but not limited to: DVT versus electrolyte abnormality versus cellulitis versus other Exam documented above, pertinent findings include: Tenderness to palpation lateral calf, no redness, warmth or swelling Lab Test results independently reviewed as above. Pertinent findings: No leukocytosis or left shift, no abnormal electrolytes Independently reviewed EKG as above Imaging studies independently reviewed: Peripheral ultrasound absent of findings consistent with DVT Discussion: Patient with lateral calf pain for the past week in the absence of injury. No fever or chills, no redness, warmth or swelling. Ultrasound negative for DVT. No knee pain, negative calf squeeze. No indication for antibiotics at this time. Patient encouraged to follow closely and return for worsening symptoms Disposition: see below, along with detailed discharge instructions that have been reviewed with patient as well as indications for ED re-evaluation and additional outpatient follow up Discharge Plan Departure Patient Disposition: Home Clinical Impression: Right calf pain Instructions: DI for Leg Pain Activity Restrictions/Additional Instructions: *You have been diagnosed with [right calf pain. As we discussed your history and physical exam are reassuring, ultrasound shows no sign of clot, your exam would suggest against the likelihood of infection such as cellulitis.] *What to do: *Please continue to take your regular medications as directed. *Please follow up with your primary care provider in 2-3 days, call for an appointment. Let them know you were seen in the Emergency Department and that we ask that you be seen in follow up. We will electronically transmit a record of today's note if your PCP is in our system *Return to Emergency Department if you should have any new, worsening or concerning symptoms, such as [fever greater than 101 F, shaking chills, worsening pain, persistent vomiting or other bothersome symptoms] Prescriptions: No Action lisinopril 10 mg tablet 10 mg PO DAILY Qty: 90 3RF nystatin 100,000 unit/mL suspension 1 ml buccal DAILY Qty: 473 0RF Rx Instructions: administer 1/2 of dose in each side of the mouth peg 3350-electrolytes [Golytely] 236-22.74-6.74 -5.86 gram recon soln 240 ml PO Q10M Qty: 4000 0RF Rx Instructions: take as directed by Physician montelukast 10 mg tablet 10 mg PO DAILY phentermine 37.5 mg tablet 37.5 mg PO DAILY Qty: 30 1RF Rx Instructions: must administer 30 minutes before or 1-2 hours after breakfast fluticasone propion-salmeterol [Advair HFA] 230-21 mcg/actuation HFA aerosol inhaler 2 puff inhalation BID Qty: 12 11RF albuterol sulfate 90 mcg/actuation HFA aerosol inhaler 2 puff inhalation Q4-6H PRN (Reason: shortness of breath or wheezing) Qty: 8.5 2RF albuterol sulfate 2.5 mg /3 mL (0.083 %) solution for nebulization 2.5 mg inhalation Q4H PRN (Reason: shortness of breath or wheezing) Qty: 75 2RF Referrals: Garett Bland DO [Primary Care Provider] - Stand Alone Forms: Patient Portal/API
[2023-04-05 16:06] LABS: Add Manual Diff / Slide Review NO; Basophils Absolute Auto 0 /uL (0-100); Basophils Percent Auto 0.9 % (0-2); Eosinophils Absolute Auto 200 /uL (0-450); Eosinophils Percent Auto 3.8 % (2-4); Lymphocytes Absolute Auto 1600 /uL (1100-4500); Lymphocytes Percent Auto 30.9 % (25-40); Mean Corpuscular HGB Conc 35.1 % (30-36); Mean Corpuscular Hemoglobin 31.6 PG (26-34); Mean Corpuscular Volume 90.1 fL (80-100); Monocytes Absolute Auto 600 /uL (0-900); Monocytes Percent Auto 11.2 % (3-14); Neutrophils Absolute Auto 2700 /uL (1500-7000); Neutrophils Percent Auto 53.2 % (50-75); Platelet Count 213 X10^3/uL (150-400); Red Blood Cell Count 4.11 X10^6/uL (4.0-5.2); Red Cell Distribution Width 13.1 % (11.6-14.8); White Blood Cell Count 5.1 X10^3/uL (4.5-11.0)
[2023-04-05 16:11] LABS: Alanine Aminotransferase 31 IU/L (<35); Albumin 4.3 g/dL (3.5-5.0); Albumin Globulin Ratio 1.3 (1.0-2.8); Alkaline Phosphatase 81 U/L (38-126); Aspartate Aminotransferase 31 IU/L (14-36); BUN Creatinine Ratio 31.2 (6-22); Bilirubin Total 0.5 mg/dL (0.2-1.3); Blood Urea Nitrogen 24 mg/dL (7-17); Calcium 9.1 mg/dL (8.4-10.2); Carbon Dioxide 31 mmol/L (22-32); Chloride 100 mmol/L (98-107); Creatine Kinase 110 U/L (30-135); Estimated Glomerular Filt Rate > 60 mL/min (>60); Globulin 3.3 g/dL (1.7-4.1); Glucose 109 mg/dL (80-110); HEMOLYSIS 18 (0-50); Potassium 3.8 mmol/L (3.4-5.1); Sodium 137 mmol/L (137-145); Total Protein 7.6 g/dL (6.3-8.2)
[2023-04-05 16:22] LABS: NT-proBNP (BNP-Adult 18+) 137 pg/mL (<125); Troponin I < 0.012 ng/mL (0.01-0.034)
[2023-04-05 16:32] LABS: COVID19 -Nasal RAPID Negative (Negative)
== END 2023-04-05 17:29 | disposition home or self-care (01) ==
PROVIDERS: Emergency Provider Emergency Medicine; Family Provider Family Medicine; PCP Family Medicine
DX: M79.604 Pain in right leg (principal); R06.02 Shortness of breath; R07.9 Chest pain, unspecified; Z20.822 Contact with and (suspected) exposure to COVID-19
CPT/HCPCS: 36415; 71045; 80053; 82550; 83880; 84484; 85025; 87635; 93005; 93010; 93971; 99284; C9803

== ENCOUNTER 2023-04-08 06:29 | Emergency (ER) | payer OTHER, MEDICAID, SELFPAY ==
[2023-04-08 06:35] VITALS: BP 124/84; PULSE 76; RESP 18; TEMP 36.3; O2SAT 97; BMI 33.1
[2023-04-08 06:49] VITALS: BP 137/75; PULSE 75; O2SAT 95
[2023-04-08 06:57] VITALS: PULSE 75
--- NOTE | 2023-04-08 07:14 | ED.LOWEXIN ---
HPI - Extremity Injury (Lower) General Chief Complaint: Extremity Injury, Lower Stated Complaint: dvt lower rt leg Time Seen by Provider: 04/08/23 07:01 Source: patient Mode of arrival: Ambulatory History of Present Illness HPI Narrative: Patient here for right-sided back pain radiating down her right leg to her calf. Does not involve the foot. Patient seen here a few days ago and had ultrasound of the leg chest x-ray blood work, ruled out DVT. Patient states this started about a week and a half ago. The week of March 26 patient had been working in her yd doing a lot of weaning bending over. That was unusual for her to do that much work. She then traveled by car to the airport and then flew for a short trip. She did a lot of sitting. She has history of bulging disc at L5. Years ago she had nerve blocks that helped her back pain. She states now she recalls having the same pain right lower back pain radiating to her right leg in the past. No bowel or bladder incontinence. No saddle paresthesia. No leg or feet numbness tingling or weakness. Related Data Home Medications Medication Instructions Recorded Confirmed montelukast 10 mg tablet 10 mg PO DAILY 01/12/23 03/18/23 Previous Rx's Medication Instructions Recorded albuterol sulfate 2.5 mg/3 mL 2.5 mg (3 mL) inhalation Q4H PRN 12/22/22 (0.083 %) solution for nebulization shortness of breath or wheezing #75 mL albuterol sulfate 90 mcg/actuation 2 puff inhalation Q4-6H PRN 12/22/22 aerosol inhaler shortness of breath or wheezing #8.5 grams lisinopril 10 mg tablet 10 mg PO DAILY #90 tabs 01/27/23 fluticasone propionate 230 2 puff inhalation BID #12 grams 02/11/23 mcg-salmeterol 21 mcg/actuation HFA inhaler (Advair HFA) phentermine 37.5 mg tablet 37.5 mg PO DAILY #30 tabs 02/24/23 nystatin 100,000 unit/mL oral 1 ml buccal DAILY #473 mL 03/03/23 suspension peg 3350-electrolytes 236 240 ml PO Q10M #4,000 mL 03/12/23 gram-22.74 gram-6.74 gram-5.86 gram solution (Golytely) baclofen 20 mg tablet 20 mg PO TID PRN pain (scale score 04/08/23 4-6) #20 tabs Allergies Allergy/AdvReac Type Severity Reaction Status Date / Time iodine [IODINE] AdvReac Mild iv Verified 03/18/23 08:29 contrast - weird feeling Review of Systems Review of Systems Narrative: GENERAL: negative chills, fatigue, malaise, fever, sweats. HEENT: negative sinus pain, ear pain, sore throat RESPIRATORY: negative dyspnea, cough CARDIOVASCULAR: negative chest pain, palpitations GASTROINTESTINAL: negative nausea, vomiting, abdominal pain : negative dysuria, frequency, hematuria MUSCULOSKELETAL: Positive back and muscle negative bony pain SKIN: negative rash, skin lesions NEUROLOGIC: negative weakness, numbness ROS Unobtainable: All systems reviewed & are unremarkable except as noted in HPI and below Patient History Medical History Asthma Benign essential HTN Family history of colon cancer Herniated disc Hyperthyroidism (~2007) Measles (~1962) Melanoma (~2019) Parathyroid tumor Skin cancer (~2019) Surgical History Anesthesia History of partial hysterectomy (~2013) History of tonsillectomy Status post hysterectomy Status post parathyroidectomy (~12/11/05) Family History Father Hypertension Cancer Mother Hypertension Grandmother Hypertension Cancer Brother Cancer Sister Cancer Grandfather Cancer Grandmother Pneumonia Grandfather Cancer Social History Smoking Status: Never smoker Smoking Status: Never smoker alcohol intake frequency: holidays/special occasions only Substance Use Type: does not use Exam Narrative Exam Narrative: GENERAL: in no distress, not toxic not dyspneic HEAD: Normocephalic. EYES: Pupils equal round ENT: Mucous membranes moist. NECK: Trachea midline. CARDIOVASCULAR: Regular rate and rhythm RESPIRATORY: Clear to auscultation. Breath sounds equal bilaterally. No wheezes, rales, or rhonchi. GASTROINTESTINAL: Abdomen soft, non-tender EXTREMITIES: No gross deformities. Right knee to toes exposed. Calf is soft nontender. No signs of compartment syndrome. Strong pedal pulse but is warm soft and pink. Light touch intact to foot and toes. Able to stand and bear weight but does have slight antalgic gait due to right low back pain radiating to right leg. Increased pain with right straight leg raise at 45?. No pain with Homans test and Dunbar test BACK: No flank tenderness. Increase right lower back pain with bending forward. No midline tenderness or step-off NEURO: AOx4. SKIN: Warm and dry PSYCH: Not anxious, is cooperative Initial Vital Signs Initial Vital Signs: Vital Signs Temperature 97.3 F L 04/08/23 06:35 Pulse Rate 76 04/08/23 06:35 Respiratory Rate 18 04/08/23 06:35 Blood Pressure 124/84 04/08/23 06:35 Pulse Oximetry 97 04/08/23 06:35 Oxygen Delivery Method Room Air 04/08/23 06:35 Course Orders Ordered: Discontinued Medications Ketorolac Tromethamine (Ketorolac 30 Mg/Ml Vial) 30 mg IM NOW ONE Stop: 04/08/23 07:14 Last Admin: 04/08/23 07:20 Dose: 30 mg Documented By: NR Vital Signs Vital signs: Vital Signs - 8 hr 04/08/23 06:35 04/08/23 06:57 04/08/23 06:49 Temperature 97.3 F L Pulse Rate 76 Pulse Rate [Right Dorsalis Pedis] 75 Respiratory Rate 18 Blood Pressure 124/84 137/75 Pulse Oximetry 97 Oxygen Delivery Method Room Air 04/08/23 06:49 04/08/23 07:38 Temperature Pulse Rate 75 Pulse Rate [Right Dorsalis Pedis] Respiratory Rate Blood Pressure 116/92 H Pulse Oximetry 95 Oxygen Delivery Method Room Air MDM - Extremity Injury (Lower) MDM Narrative Medical decision making narrative: Patient here for right-sided back pain radiating down her right leg to her calf. Does not involve the foot. Patient seen here a few days ago and had ultrasound of the leg chest x-ray blood work, ruled out DVT. Patient states this started about a week and a half ago. The week of March 26 patient had been working in her yd doing a lot of weaning bending over. That was unusual for her to do that much work. She then traveled by car to the airport and then flew for a short trip. She did a lot of sitting. She has history of bulging disc at L5. Years ago she had nerve blocks that helped her back pain. She states now she recalls having the same pain right lower back pain radiating to her right leg in the past. No bowel or bladder incontinence. No saddle paresthesia. No leg or feet numbness tingling or weakness. After history and exam no blood work or imaging indicated this time. Based on patient's history and exam here patient likely has exacerbation of low back pain/felt disc due to activity she had week and a half ago. Please see notes above. MDM CC: Back pain leg pain Complicating co-morbidities: History of bulging disc L5 Data collected from: Patient Medical records reviewed: April 05, 2023 ER visit here with workup for DVT ultrasound chest x-ray blood work Differential considered: Includes but not limited to sciatic bulge disc cauda equina DVT Exam documented above, pertinent findings include: Pain with leaning forward pain with straight leg raise Treatments: Toradol Re-evaluations: Reviewed history and exam with patient, she does agree now this is same pain she is had with sciatica and bulging disc she is had in the past but it has been a long time. She does agree likely with activity of the week of March 26 likely triggered her back pain/sciatica. Return precautions reviewed with her. She agrees with treatment plan. She will follow up with her family doctor for further treatment evaluation MRI and physical therapy. Discussion: Appropriate for discharge home. No blood work or imaging indicated at this time. No neuro deficits. No MRI needed this time. X-ray and CT would be suboptimal given likely sciatica and needs evaluation for bulged disc. Clinically not cauda equina. No debilitating neuro deficits. No red flags. Return precautions reviewed patient. She desires discharge home. Baclofen prescription provided. Diagnosis: Sciatica Discharge Plan Departure Patient Disposition: Home Clinical Impression: Sciatica of right side Instructions: DI for Back Pain With Sciatica Activity Restrictions/Additional Instructions: Please see your family doctor this week for re-evaluation and to get referral for physical therapy and MRI of your lower back. Your symptoms are likely sciatica, the activity a couple weeks ago likely irritated your bulge disc in your back, causing pain to radiate to right leg. 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 No driving operating machinery when taking this medication. May continue ibuprofen for pain. Return if worse if any questions or concerns Prescriptions: New baclofen 20 mg tablet 20 mg PO TID PRN (Reason: pain (scale score 4-6)) Qty: 20 0RF No Action lisinopril 10 mg tablet 10 mg PO DAILY Qty: 90 3RF nystatin 100,000 unit/mL suspension 1 ml buccal DAILY Qty: 473 0RF Rx Instructions: administer 1/2 of dose in each side of the mouth peg 3350-electrolytes [Golytely] 236-22.74-6.74 -5.86 gram recon soln 240 ml PO Q10M Qty: 4000 0RF Rx Instructions: take as directed by Physician montelukast 10 mg tablet 10 mg PO DAILY phentermine 37.5 mg tablet 37.5 mg PO DAILY Qty: 30 1RF Rx Instructions: must administer 30 minutes before or 1-2 hours after breakfast fluticasone propion-salmeterol [Advair HFA] 230-21 mcg/actuation HFA aerosol inhaler 2 puff inhalation BID Qty: 12 11RF albuterol sulfate 90 mcg/actuation HFA aerosol inhaler 2 puff inhalation Q4-6H PRN (Reason: shortness of breath or wheezing) Qty: 8.5 2RF albuterol sulfate 2.5 mg /3 mL (0.083 %) solution for nebulization 2.5 mg inhalation Q4H PRN (Reason: shortness of breath or wheezing) Qty: 75 2RF Referrals: Garett Bland DO [Primary Care Provider] - Stand Alone Forms: Patient Portal/API
[2023-04-08] MEDS: KETOROLAC 30 MG/ML VIAL IM (07:20)
[2023-04-08 07:38] VITALS: BP 116/92
== END 2023-04-08 07:48 | disposition home or self-care (01) ==
PROVIDERS: Emergency Provider Emergency Medicine; Family Provider Family Medicine; PCP Family Medicine
DX: M54.41 Lumbago with sciatica, right side (principal)
CPT/HCPCS: 96372; 99283; J1885

== ENCOUNTER → 2023-04-10 17:04 | Outpatient (CLI) | payer OTHER, MEDICAID, SELFPAY ==
--- NOTE | 2023-04-10 17:07 | DI.RAD.S_ITS ---
PROCEDURE: XR LUMBAR SPINE MIN 4V INDICATIONS: LUMBAR AND SCIATICA PAIN TECHNIQUE: 5 views of the lumbar spine were acquired, including bilateral oblique views. COMPARISON: None. FINDINGS: Bones: 5 nonrib-bearing vertebrae are present. There is normal bony alignment. No vertebral body compression fractures. No suspicious bony lesions. Facet arthropathy. Disc height loss, worse at L5-S1. Mild anterior osteophytosis. Soft tissues: Overlying bowel gas pattern is normal. No suspicious soft tissue calcifications. Oblique images: No definite pars defects. IMPRESSION: Multilevel degenerative changes of the lumbar spine as described above. Dictated by: Bry Dale M.D. on 04/10/2023 at 17:58 Approved by: Bry Dale M.D. on 04/10/2023 at 17:59
== END ==
PROVIDERS: Family Provider Family Medicine; PCP Family Medicine; Referring Provider Family Medicine; Visit Provider Family Medicine
DX: M47.816 Spondylosis without myelopathy or radiculopathy, lumbar region (principal); M54.31 Sciatica, right side
CPT/HCPCS: 72110

== ENCOUNTER 2023-04-17 11:31 | Day surgery (SDC) | payer OTHER, MEDICAID, SELFPAY ==
--- NOTE | 2023-04-17 | PATH_ITS ---
[facility] Accession Number: [id number] No. of containers..01 Tissue . 01 Material submitted: . colon - TRANSVERSE POLYP . 01 Diagnosis: Transverse Colon, Polyp: Fragments of tubular adenoma and sessile serrated adenoma. MRV 04/29/2023 1731 Local . 01 Electronically signed: . Rosibel White MD, Pathologist NPI- [id number] . 01 Gross description: . TRANSVERSE POLYP: Received in formalin is multiple fragment(s) of esteban, soft tissue measuring 0.4 x 0.3 x 0.1 cm in aggregate submitted entirely in 1 cassette(s) /AAY 04/23/2023 1041 Local . 01 Pathologist provided ICD-10: D12.3 . 01 CPT . 449976 Specimen Comment: A courtesy copy of this report has been sent to [facility] Performed at: 01 [facility] [address] [place] [address], [place], [place] [id number] MD Jimmie Rider MD Phone: [phone]
[2023-04-17 11:52] VITALS: BP 133/92; PULSE 85; RESP 20; TEMP 35.9; O2SAT 94; BMI 34.1
[2023-04-17] MEDS: LACTATED RINGERS 1,000 ML 125 ML IV (12:19)
--- NOTE | 2023-04-17 13:09 | PM.HP.1 ---
History of Present Illness History of Present Illness Date Patient Seen: 04/17/23 Time Patient Seen: 13:09 Chief complaint: Screening Colonoscopy Narrative: 62-year-old woman presents today for colon cancer screening. She does have a strong family history of colon cancer her sister from colon cancer as well as her father. She has had several colonoscopies in the past most recently here at [facility] in 2017 she says no polyps were seen. She does have hemorrhoids and has noted a ?ribbon like? quality of her stool on occasion. She also runs constipated and has been constipated with large amounts stool in the recent past. This occasional ribbon like quality has been going on for the last several months but on occasion she also has a normal caliber stools it is not consistently like that. She has hemorrhoids as well. She says that she has bilateral inguinal hernias and has been seen by a surgeon for that. He said the surgeon elected not to repair either of these lesions. She is having at this time right pain which we think has been attributed to the sciatica but she is not sure if the hernia could contributing she is supposed to get a CT scan but is pending approval from her insurance company and has not gotten the CT scan just yet. She is chronic back pain. Has chronic left knee pain. [facility] Medical History Asthma Benign essential HTN Family history of colon cancer Herniated disc Hyperthyroidism (~2007) Measles (~1962) Melanoma (~2019) Parathyroid tumor Skin cancer (~2019) Surgical History Anesthesia History of partial hysterectomy (~2013) History of tonsillectomy Status post hysterectomy Status post parathyroidectomy (~12/11/05) Family History Father Hypertension Cancer Mother Hypertension Grandmother Hypertension Cancer Brother Cancer Sister Cancer Grandfather Cancer Grandmother Pneumonia Grandfather Cancer Social History household members: none Smoking Status: Never smoker alcohol intake: current Meds Home Medications and Allergies Home Medications Medication Instructions Recorded Confirmed Type albuterol sulfate 2.5 mg/3 mL 2.5 mg (3 mL) inhalation Q4H PRN 12/22/22 04/17/23 Rx (0.083 %) solution for nebulization shortness of breath or wheezing #75 mL albuterol sulfate 90 mcg/actuation 2 puff inhalation Q4-6H PRN 12/22/22 04/17/23 Rx aerosol inhaler shortness of breath or wheezing #8.5 grams montelukast 10 mg tablet 10 mg PO DAILY 01/12/23 04/17/23 History lisinopril 10 mg tablet 10 mg PO DAILY #90 tabs 01/27/23 04/17/23 Rx fluticasone propionate 230 2 puff inhalation BID #12 grams 02/11/23 04/17/23 Rx mcg-salmeterol 21 mcg/actuation HFA inhaler (Advair HFA) phentermine 37.5 mg tablet 37.5 mg PO DAILY #30 tabs 02/24/23 04/17/23 Rx nystatin 100,000 unit/mL oral 1 ml buccal DAILY #473 mL 03/03/23 04/17/23 Rx suspension peg 3350-electrolytes 236 240 ml PO Q10M #4,000 mL 03/12/23 04/17/23 Rx gram-22.74 gram-6.74 gram-5.86 gram solution (Golytely) baclofen 20 mg tablet 20 mg PO TID PRN pain (scale score 04/08/23 04/17/23 Rx 4-6) #20 tabs dexamethasone 2 mg tablet 2 mg PO TID 4 days #12 tabs 04/14/23 04/17/23 Rx Allergies Allergy/AdvReac Type Severity Reaction Status Date / Time iodine [IODINE] AdvReac Mild iv Verified 04/14/23 11:39 contrast - weird feeling Exam Vital Signs (past 8 hours): - 04/17/23 11:52 Temperature 96.7 F L Pulse Rate 85 Respiratory Rate 20 Blood Pressure 133/92 H Pulse Oximetry 94 Oxygen Delivery Method Room Air Oxygen Delivery Method Room Air Const General: cooperative, healthy appearing and comfortable Nutritional Appearance: obese (BMI 34) Orientation: alert, awake and oriented x3 HENMT Head: normal to inspection Mouth: oral mucosae normal Eyes General: appearance normal, both eyes and all related structures Resp Effort & Inspection: normal respiratory effort and able to speak in complete sentences Cardio Pulses: radial pulses present GI Palpation: soft and No tender Other: Right inguinal area is examined and there may be hernia it is hard to tell on exam due to body habitus. Assessment & Plan Assessment and plan (1) Family history of colon cancer: Status: Acute (2) Colon cancer screening: Status: Acute Assessment & Plan narrative: Presents today for screening colonoscopy I discussed the risks benefits and alternatives including but not limited to perforation of the colon and an incomplete exam she fully understands these risks and would like to proceed.
[2023-04-17 14:03] VITALS: BP 133/92; PULSE 77; RESP 14; TEMP 36.1; O2SAT 98
[2023-04-17 14:12] VITALS: BP 104/74; PULSE 77; RESP 17; O2SAT 77
[2023-04-17 14:13] VITALS: BP 100/69; PULSE 78; RESP 16; O2SAT 98
[2023-04-17 14:19] VITALS: BP 103/77; PULSE 72; RESP 17; TEMP 36.7; O2SAT 99
--- NOTE | 2023-04-17 14:49 | PM.OP.COLON ---
Operative Date/Time/Diagnoses Date of procedure: 04/17/23 Time of procedure: 14:49 Pre-op diagnosis: Family history of colon cancer, colon cancer screening Post-op diagnosis: same Procedure & Clinicians Study performed: Colonoscopy and biopsy Same procedure as scheduled: Yes Indications: Colon cancer screening, family history Surgeon: Stefania Nassar Procedure Notes Procedure in detail: Patient was taken to the endoscopy suite and placed in a left lateral decubitus position. A time-out was performed. With the help of anesthesiologist conscious sedation was induced and monitored throughout the case. A digital rectal exam was performed and there were no masses or strictures. The colonoscope was introduced into the anal canal and advanced through to the cecum. A photograph of the appendiceal orifice was obtained. The bowel prep was good Cameron bowel prep score of 2 although there were some solid areas and places where the bowel prep was approaching Cameron bowel prep score of 1, this required extra irrigation and additional time. The scope was then withdrawn for a total of 15 minutes and 1 polyp in the transverse colon was seen and removed in 2 bites of a forceps.. The scope was then retroflexed and a photograph of the internal hemorrhoidal piles was obtained these appeared somewhat prominent. Findings: internal hemorrhoids and polyp(s) Specimen(s): other (Transverse colon polyp) Complications: none Post-procedure Plan for aftercare: Likely a 5 year follow-up because of the family history. I do recommend a fiber supplement daily.
[2023-04-17 14:53] VITALS: BP 121/82; PULSE 68; RESP 16; TEMP 36.3; O2SAT 100
== END 2023-04-17 14:58 | disposition home or self-care (01) ==
PROVIDERS: Family Provider Family Medicine; PCP Family Medicine; Referring Provider Surgery; Visit Provider Surgery
PROC: 0DJD8ZZ Inspection of Lower Intestinal Tract, Via Natural or Artificial Opening Endoscopic (ICD-10-PCS; CPT 45378; principal; 2023-04-17 12:45)
DX: Z12.11 Encounter for screening for malignant neoplasm of colon (principal); Z80.0 Family history of malignant neoplasm of digestive organs; K64.8 Other hemorrhoids; D12.3 Benign neoplasm of transverse colon
CPT/HCPCS: 45380; J2250; J2704; J3010

== ENCOUNTER → 2023-04-25 10:33 | Outpatient (CLI) | payer OTHER, MEDICAID, SELFPAY ==
--- NOTE | 2023-04-25 10:34 | DI.CT.S_ITS ---
PROCEDURE: CT ABDOMEN PELVIS W CON INDICATIONS: right groin pain TECHNIQUE: After the administration of intravenous contrast, axial sections acquired from the lung bases to the pubic symphysis. Coronal and sagittal reformats were performed. For radiation dose reduction, the following was used: automated exposure control, adjustment of mA and/or kV according to patient size. COMPARISON: [facility], CT, CT ABDOMEN PELVIS WO/W CON, 08/23/2021, 10:03. FINDINGS: Lower thorax: The lung bases are clear. Heart size normal. No hiatal hernia. Liver: Normal in size and attenuation. No contour deformity present. Biliary system: No calcified cholelithiasis or pericholecystic inflammation. No intra or extrahepatic bile duct dilatation. Pancreas: Unremarkable without mass or inflammation evident. Spleen: The spleen is enlarged at 13.8 cm. No intrinsic mass lesion. Adrenals: Normal morphology and density. Reproductive system: Unremarkable as visualized. Urinary system: Asymmetric left renal atrophy. Small nonobstructive bilateral renal calculi measure up to 3 mm on the left. Left renal 2.3 cm cyst. No hydronephrosis bilaterally. Gastrointestinal system: The bowel is unremarkable without evidence of bowel obstruction or inflammation. The stomach appears unremarkable. Moderate fecal debris in the right colon Appendix: Normal appendix identified. No evidence of appendicitis. Peritoneal spaces: No mesenteric or retroperitoneal adenopathy. No free air. No free fluid. there is localized mesenteric fat stranding noted centrally Vasculature: The IVC, aorta and iliac vasculature are unremarkable. Abdominal wall: Abdominal wall intact without evidence of ventral or inguinal hernias. Musculoskeletal: Normal bone mineralization. Degenerative disc disease and arthropathy noted in lower lumbar spine. No acute fractures. IMPRESSION: 1. Localized mesenteric fat stranding and edema noted in the central mesentery probably reflects focal panniculitis or less likely omental infarct. 2. Chronic findings include left renal atrophy and bilateral nonobstructive renal calculi, mild Approved by: Ryne José M.D. on 04/25/2023 at 11:56
== END ==
PROVIDERS: Family Provider Family Medicine; PCP Family Medicine; Referring Provider Internal Medicine; Visit Provider Internal Medicine
DX: R10.31 Right lower quadrant pain (principal); R10.9 Unspecified abdominal pain; N20.0 Calculus of kidney; N26.1 Atrophy of kidney (terminal)
CPT/HCPCS: 74177; Q9967

== ENCOUNTER → 2023-05-01 06:42 | Outpatient (CLI) | payer OTHER, MEDICAID, SELFPAY ==
[2023-05-01 09:40] LABS: Appearance Urine UA SL CLOUDY; Bilirubin Urine UA NEGATIVE (NEGATIVE); Color Urine UA YELLOW; Glucose Urine UA NEGATIVE (Negative); Ketones Urine UA NEGATIVE (NEGATIVE); Leukocyte Esterase Urine UA NEGATIVE (NEGATIVE); Nitrite Urine UA NEGATIVE (Negative); Occult Blood Urine UA TRACE-INTACT (Negative); Protein Urine UA NEGATIVE (Negative); Specific Gravity Urine UA 1.015 (1.000-1.035); Urobilinogen Urine UA 0.2 E.U./dL (0.2)
[2023-05-01 09:52] LABS: Bacteria Urine Many (>30); Culture Indicated Urine Cult Not Indicated; RBC Urine 0-1/HPF (0-5/HPF); Squamous Epithelial Cell Urine 5-10 /HPF (0-5/HPF); WBC Urine 1-5/HPF (0-5/HPF)
== END ==
PROVIDERS: Family Provider Family Medicine; PCP Family Medicine; Referring Provider Family Medicine; Visit Provider Family Medicine
DX: R35.1 Nocturia (principal)
CPT/HCPCS: 81001

== ENCOUNTER 2023-05-14 11:15 | Outpatient (RCR) | payer OTHER, MEDICAID, SELFPAY ==
--- NOTE | 2023-04-14 17:19 | PT.OIE ---
Current Diagnoses Pain in left knee (04/14/23) Difficulty in walking, not elsewhere classified (04/14/23) Weakness (04/14/23) Past Medical History (Last Reviewed 04/08/23 @ 07:20 by Usman Cantu MD) Asthma Benign essential HTN Family history of colon cancer Herniated disc Hyperthyroidism (~2007) Measles (~1963) Melanoma (~2019) Parathyroid tumor Skin cancer (~2019) Past Surgical History (Last Reviewed 04/08/23 @ 07:20 by Usman Cantu MD) Anesthesia History of partial hysterectomy (~2013) History of tonsillectomy Status post hysterectomy Status post parathyroidectomy (~12/11/05) Visit Care Team Role Provider Type Garett Bland DO Attending Provider Physician Family Provider Primary Care Provider Referring Provider Specialty: Family Practice Address: [address] [place] [address], [address], [facility] Email: [email or web address] Physical Therapy Initial Evaluation PT-OP-A Visit Information Start: 04/13/23 14:59 Freq: Status: Active Protocol: Document 04/14/23 12:30 SAK (Rec: 04/14/23 13:17 SAK [id number]) Out-Patient Physical Therapy Visit Information Visit Information Visit Type Initial Evaluation Visit Start Time 12:31 Visit Number 1 PT-OP-B Current Condition Start: 04/13/23 14:59 Freq: Status: Active Protocol: Document 04/14/23 12:30 SAK (Rec: 04/14/23 13:17 SAK [id number]) Current Condition History of Current Condition Onset Date November 2020 Current Complaints left knee pain History of Current Condition Working from home with ankles crossed for long day, couldn't walk, swelling of left knee. Went to ER; x-ray-fluid on her knee. Went to multiple doctors. Now with Dr. Bland, had knee aspirated 2 weeks ago. States left knee aki and clicks at times. PT order is for left knee pain, but of bigger concern to patient at this time is LBP and anterior hip/groin pain. Went to [place], iced and elevated. Onset of LBP with radicular symtpms right LE after doing a lot of yardwork March 26. Onset of LBP and now experiencing excruitiating pain. States she wakes up in excrutiating pain intermittantly, CT scan has been ordered for spine and abdomen to r/o anything more seriors. R LBP radiating down to calf. Prior Treatments and Tests 2013 herniated disc L4, has had injection, better for a long time. left knee aspirated 2 weeks ago. ER 2x and urgent care 1x past 10 days due to sciatica and hernia. Future Testing and Treatments Planned Has colonoscopy on Thursday. Awaiting approval for CT scan for LB and abdomen/groin Treatment Goals Patient/Caregiver Goals Decrease knee pain Prior Functional Status Baseline Function- ADL's Independent Baseline Function- Mobility Independent Baseline Function- Gait no difficulty Current Functional Impairments (Reported) Functional Limitations- ADL's painful Functional Limitations- Mobility/Gait painful Functional Limitations- Recreation/ unable Hobbies Personal Factors Other Personal Factors That May Effect Patient reports high tolerance Therapy/Recovery for pain PT-OP-C Subjective Start: 04/13/23 14:59 Freq: Status: Active Protocol: Document 04/15/23 16:52 [facility] (Rec: 04/15/23 17:10 [facility] [id number]) Patient Questionnaires Lower Extremity Functional Scale LEFS Score 28 OP-PT Pain Assessment Pain Assessment Grid Paper Pain Assessment Grid Completed Yes Location right LB, hip, groin Intensity 9 left knee Intensity 4 Home Pain Medication Use Pain Medications Used Yes Pain Behaviors Pain Behaviors Calling Out,Crying,Facial Grimacing,Guarding,Holding Area,Moaning,Restlessness, Wincing PT-OP-G Mobility & Gait Start: 04/13/23 14:59 Freq: Status: Active Protocol: Document 04/14/23 12:30 [facility] (Rec: 04/15/23 17:10 [facility] [id number]) OP Gait Assessment Gait Gait Assistance Required: Independent Assistive Devices Assistive Device None Orthotic/Prosthetic Devices or Brace: No Gait Deviations General Gait Pattern Antalgic,Decreased Stride Length,Festinating,Flexed Trunk Factors Limiting Gait Function Factors Limiting Gait Function Pain Stair Climbing Evaluation Devices Stair Climbing Assistive Devices Left Railing,Right Railing Technique/Endurance Stair Climbing Technique Step to Step PT-OP-H Neuro Start: 04/13/23 14:59 Freq: Status: Active Protocol: Document 04/14/23 12:30 SAK (Rec: 04/15/23 17:10 [facility] [id number]) Sensation Evaluation Gross Sensation Gross Sensation Right LE Impaired Sensation Description Paresthesia PT-OP-J Posture/Palpation/Skin Start: 04/13/23 14:59 Freq: Status: Active Protocol: Document 04/14/23 12:30 [facility] (Rec: 04/15/23 17:10 [facility] [id number]) Posture Evaluation Position Standing Head/C-Spine Posture Forward Head T-Spine Posture Increased Kyphosis L-Spine Posture Increased Lordosis Pelvis Posture Anteriorly Tilted Weight Distribution Weight Shifted Left Foot Arch (L) Low Arch,(R) Low Arch Palpation Assessment Location left medial knee Palpation Location joint line Palpation Findings Edema,Tenderness PT-OP-K Range of Motion Start: 04/13/23 14:59 Freq: Status: Active Protocol: Document 04/14/23 12:30 [facility] (Rec: 04/15/23 17:10 [facility] [id number]) Knee Goniometric Range of Motion Knee Left Knee ROM WFL No Flexion Active (degrees) 125 Flexion Passive (degrees) 132 Extension Active (degrees) 5 Extension Passive (degrees) 2 Hyper-Extension Active 5 Right Knee ROM WFL Yes Knee ROM Limitations Knee ROM Limitations Pain PT-OP-L Special Tests Start: 04/13/23 14:59 Freq: Status: Active Protocol: Document 04/14/23 12:30 [facility] (Rec: 04/15/23 17:10 [facility] [id number]) Special Tests Knee Special Tests Patellar Grind Test Test Results - Hardy Chondromalacia Test Results - Posterior Draw Test Results - Deirdre Test Test Results + Anterior Draw Test Results - Comments difficult to compare to right due to severity of right LE pain and guarding PT-OP-M Strength Start: 04/13/23 14:59 Freq: Status: Active Protocol: Document 04/14/23 12:30 [facility] (Rec: 04/15/23 17:10 [facility] [id number]) Hip Strength Hip Manual Muscle Testing Right Comments diffucult to assess due to severity of pain, generally has antigravity strength, minimal tolerance for resistance Knee Strength Knee Manual Muscle Testing Left Flexion (S2) 4 Good Extension (L3) 4 Good Comments limited by pain Right Flexion (S2) 5 Normal Extension (L3) 5 Normal Ankle/Foot Strength Ankle and Foot Manual Muscle Testing Left Dorsiflexion (L4) 4+ Good+ Plantarflexion (S1) 4+ Good+ Right Dorsiflexion (L4) 5 Normal Plantarflexion (S1) 5 Normal PT-OP-Q Treatments Start: 04/13/23 14:59 Freq: Status: Active Protocol: Document 04/14/23 12:30 [facility] (Rec: 04/15/23 17:10 [facility] [id number]) Self-Care/Home Management Treatment Education Patient Education Home Exercise Program Other Education gentle isometric PT-OP-T Assessment and Plan Start: 04/13/23 14:59 Freq: Status: Active Protocol: Document 04/14/23 12:30 [facility] (Rec: 04/14/23 13:17 [facility] [id number]) Physical Therapy Assessment Rehab Potential Rehabilitation Potential Good Evaluation Complexity Number of Personal Factors/Comorbidities 1-2 Number of Body Systems Impaired 3 Clinical Presentation at Evaluation Evolving Impairments Impairments Edema,Gait,Pain,Strength Goals Three Impairment weakness and lack of full left knee ROM Short Term Goal (STG) patient to be instructed in HEP to address above impairments which limit her ability to squat and do other ADL's STG Duration 05/15/23 Supervisor Decorating Goal (LTG) Patient will be independent and compliant to HEP and demonstrate left knee ROM WNL and LE strength at least 4+/5 throughout LTG Duration 06/14/23 Two Impairment antalgic gait, step-to pattern on stairs Short Term Goal (STG) Improve patient gait to allow her to walk without a limp on level surfaces STG Duration 05/15/23 Supervisor Decorating Goal (LTG) Patient will be able to walk without device without a limp on uneven surfaces without increase in pain including stairs with alternating pattern LTG Duration 06/14/23 One Impairment function-limiting left knee pain Impairment LEFS 28% Short Term Goal (STG) Improve LEFS score to at least 45% as measure of improved activity tolerance STG Duration 05/15/23 Supervisor Decorating Goal (LTG) Improve LEFS score mariangel at least 60% as measure of improved activity tolerance LTG Duration 06/14/23 Assessment Summary Assessment Patient presents to PT with function-limiting left knee pain resulting from sitting too long ankles crossed which has persisted and appears may be causing pain lumbar spine and into right LE and anterior hip due to compensation for left knee pain. Patient also reports there is some question of anterior lower quadrant/ hip pain coming from hernia and she is concerned about that or a potential more serious medical issue. Has had CT ordered to look at lumbar spine and right hip but waiting for insurance approval. Patient has history LBP and reports prior injection L45 which was helpful. Evaluation reveals postural asymmetry with shift to left LE, dec WB right, anterior thorax on pelvis, left shoulder lower, excess right hip ER, right leg longer , flattened arch. Patient has pain to palpation medial joint line left knee and meniscal testing positive with joint effusion present medial left knee. Signs and symptoms consistent with potential meniscal tear. Patient has antalgic gait pattern with decreased gluteal activation, hyperextension of her knees in standing and with gait. Patient presents with weakness hips, knees, core. Feel she would benefit from PT to decrease her left knee pain, improve her strength, and help her return to prior level of functional activity tolerance. POC was discussed and patient was in agreement. Complicating her response to PT may be the right sided pain which could be a result of compensation but is of very high severity; medical testing anticipated for r/o other issues. Physical Therapy Plan Frequency and Duration Frequency of Treatment 2x/Week Duration of treatment (weeks) 8 Plan of Care Start Date 04/14/23 Plan of Care End Date 06/14/23 Therapeutic Interventions Therapeutic Interventions Gait Training,Home Exercise Program,Manual Therapy,Patient /Caregiver Education,Self-Care /Home Management,Soft Tissue Mobilization,Taping, Therapeutic Activities, Therapeutic Exercises Modalities Cold Pack/Ice Massage,Electric Stimulation,Hot Packs, Infrared Therapy,Ultrasound Next Visit Focus/Plan Next Note Type Treatment Note Next Visit Plan Gentle ther ex for left knee strengthening and ROM. Modalities and manual therapy PRN pain. Consider kinesiotape to left knee. Treatment may need to be modified pending pain level in right LB, hip, and groin.
--- NOTE | 2023-04-16 16:44 | PT.OTN ---
Current Diagnoses Pain in left knee (04/16/23) Difficulty in walking, not elsewhere classified (04/16/23) Weakness (04/16/23) Physical Therapy Treatment Note PT-OP-A Visit Information Start: 04/13/23 14:59 Freq: Status: Active Protocol: Document 04/16/23 09:29 SAK (Rec: 04/16/23 10:27 [facility] [id number]) Out-Patient Physical Therapy Visit Information Visit Information Visit Type Treatment Note Visit Start Time 09:30 Visit Stop Time 10:20 Total Visit Minutes 50 Visit Number 2 Evaluation Information Evaluation Date 04/14/23 PT-OP-B Current Condition Start: 04/13/23 14:59 Freq: Status: Active Protocol: Document 04/16/23 09:29 SAK (Rec: 04/16/23 10:27 [facility] [id number]) Current Condition History of Current Condition Onset Date November 2020 Current Complaints left knee pain History of Current Condition Working from home with ankles crossed for long day, couldn't walk, swelling of left knee. Went to ER; x-ray-fluid on her knee. Went to multiple doctors. Now with Dr. Bland, had knee aspirated 2 weeks ago. States left knee aki and clicks at times. PT order is for left knee pain, but of bigger concern to patient at this time is LBP and anterior hip/groin pain. Went to [place], iced and elevated. Onset of LBP with radicular symtpms right LE after doing a lot of yardwork March 26. Onset of LBP and now experiencing excruitiating pain. States she wakes up in excrutiating pain intermittantly, CT scan has been ordered for spine and abdomen to r/o anything more seriors. R LBP radiating down to calf. Prior Treatments and Tests 2013 herniated disc L4, has had injection, better for a long time. left knee aspirated 2 weeks ago. ER 2x and urgent care 1x past 10 days due to sciatica and hernia. Future Testing and Treatments Planned Has colonoscopy on Thursday. Awaiting approval for CT scan for LB and abdomen/groin Treatment Goals Patient/Caregiver Goals Decrease knee pain, improve walking Prior Functional Status Baseline Function- ADL's Independent Baseline Function- Mobility Independent Baseline Function- Gait no difficulty PT-OP-C Subjective Start: 04/13/23 14:59 Freq: Status: Active Protocol: Document 04/16/23 09:29 [facility] (Rec: 04/16/23 10:27 [facility] [id number]) OP-PT Subjective Patient Comments Patient Comments Feels we are on the right track with her pain, emphasis on alignment and compensation patterns, strengthening OP-PT Pain Assessment Pain Behaviors Pain Behaviors Calling Out,Crying,Facial Grimacing,Guarding,Holding Area,Moaning,Restlessness, Wincing PT-OP-G Mobility & Gait Start: 04/13/23 14:59 Freq: Status: Active Protocol: Document 04/14/23 12:30 [facility] (Rec: 04/15/23 17:10 [facility] [id number]) OP Gait Assessment Gait Gait Assistance Required: Independent Assistive Devices Assistive Device None Orthotic/Prosthetic Devices or Brace: No Gait Deviations General Gait Pattern Antalgic,Decreased Stride Length,Festinating,Flexed Trunk Factors Limiting Gait Function Factors Limiting Gait Function Pain Stair Climbing Evaluation Devices Stair Climbing Assistive Devices Left Railing,Right Railing Technique/Endurance Stair Climbing Technique Step to Step PT-OP-H Neuro Start: 04/13/23 14:59 Freq: Status: Active Protocol: Document 04/14/23 12:30 [facility] (Rec: 04/15/23 17:10 [facility] [id number]) Sensation Evaluation Gross Sensation Gross Sensation Right LE Impaired Sensation Description Paresthesia PT-OP-J Posture/Palpation/Skin Start: 04/13/23 14:59 Freq: Status: Active Protocol: Document 04/14/23 12:30 [facility] (Rec: 04/15/23 17:10 [facility] [id number]) Posture Evaluation Position Standing Head/C-Spine Posture Forward Head T-Spine Posture Increased Kyphosis L-Spine Posture Increased Lordosis Pelvis Posture Anteriorly Tilted Weight Distribution Weight Shifted Left Foot Arch (L) Low Arch,(R) Low Arch Palpation Assessment Location left medial knee Palpation Location joint line Palpation Findings Edema,Tenderness PT-OP-K Range of Motion Start: 04/13/23 14:59 Freq: Status: Active Protocol: Document 04/14/23 12:30 [facility] (Rec: 04/15/23 17:10 [facility] [id number]) Knee Goniometric Range of Motion Knee Left Knee ROM WFL No Flexion Active (degrees) 125 Flexion Passive (degrees) 132 Extension Active (degrees) 5 Extension Passive (degrees) 2 Hyper-Extension Active 5 Right Knee ROM WFL Yes Knee ROM Limitations Knee ROM Limitations Pain PT-OP-L Special Tests Start: 04/13/23 14:59 Freq: Status: Active Protocol: Document 04/14/23 12:30 [facility] (Rec: 04/15/23 17:10 [facility] [id number]) Special Tests Knee Special Tests Patellar Grind Test Test Results - Hardy Chondromalacia Test Results - Posterior Draw Test Results - Deirdre Test Test Results + Anterior Draw Test Results - Comments difficult to compare to right due to severity of right LE pain and guarding PT-OP-M Strength Start: 04/13/23 14:59 Freq: Status: Active Protocol: Document 04/14/23 12:30 [facility] (Rec: 04/15/23 17:10 [facility] [id number]) Hip Strength Hip Manual Muscle Testing Right Comments diffucult to assess due to severity of pain, generally has antigravity strength, minimal tolerance for resistance Knee Strength Knee Manual Muscle Testing Left Flexion (S2) 4 Good Extension (L3) 4 Good Comments limited by pain Right Flexion (S2) 5 Normal Extension (L3) 5 Normal Ankle/Foot Strength Ankle and Foot Manual Muscle Testing Left Dorsiflexion (L4) 4+ Good+ Plantarflexion (S1) 4+ Good+ Right Dorsiflexion (L4) 5 Normal Plantarflexion (S1) 5 Normal PT-OP-Q Treatments Start: 04/13/23 14:59 Freq: Status: Active Protocol: Document 04/16/23 09:29 [facility] (Rec: 04/16/23 16:44 [facility] [id number]) Cardio Equipment Bicycle (Upright) Duration (Minutes) 6 Resistance 4 Seat Position 3 Therapeutic Exercises Supine Exercises Hip ab/ER Equipment Used strap Reps/Minutes 5x Comments james glut set Reps/Minutes 5x TrA Reps/Minutes 5x Gait Training Gait Activity gait with device Device Used SPC (1,2), trekking pole (1,2) Level of Assistance SBA, cues Surface firm Distance/Duration 12 min Treatment Focus sequencing, posture, core and gluteal activation Comments initially difficult, improved throughout session. Best gait with 2 devices after training ; dec limp gait with visual feedback Device Used none Treatment Focus self assessment using mirror for visual feedback Manual Therapy Treatment Manual Techniques MWM Comments ME for ant rotated innominate with contract relax into hip flex, fair correction. Patient issued written handout PT-OP-R Modalities Start: 04/13/23 14:59 Freq: Status: Active Protocol: Document 04/16/23 09:29 [facility] (Rec: 04/16/23 16:44 [facility] [id number]) Hot Pack/Cold Pack Treatment Cold Pack Location left knee, right hip Patient Position Hooklying Treatment Duration (minutes) 10 Patient Tolerance Good PT-OP-T Assessment and Plan Start: 04/13/23 14:59 Freq: Status: Active Protocol: Document 04/16/23 09:29 [facility] (Rec: 04/16/23 10:27 [facility] [id number]) Physical Therapy Assessment Impairments Impairments Edema,Gait,Pain,Strength Goals Three Impairment weakness and lack of full left knee ROM Short Term Goal (STG) patient to be instructed in HEP to address above impairments which limit her ability to squat and do other ADL's STG Duration 05/15/23 Scraper Loader Operator Goal (LTG) Patient will be independent and compliant to HEP and demonstrate left knee ROM WNL and LE strength at least 4+/5 throughout LTG Duration 06/14/23 Two Impairment antalgic gait, step-to pattern on stairs Short Term Goal (STG) Improve patient gait to allow her to walk without a limp on level surfaces STG Duration 05/15/23 Scraper Loader Operator Goal (LTG) Patient will be able to walk without device without a limp on uneven surfaces without increase in pain including stairs with alternating pattern LTG Duration 06/14/23 One Impairment function-limiting left knee pain Impairment LEFS 28% Short Term Goal (STG) Improve LEFS score to at least 45% as measure of improved activity tolerance STG Duration 05/15/23 Scraper Loader Operator Goal (LTG) Improve LEFS score mariangel at least 60% as measure of improved activity tolerance LTG Duration 06/14/23 Assessment Summary Assessment Patient demonstrated imnproved gait with use of canes or trekking poles; intially difficulty with sequencing but improved throughout session with decreased limp. Manual technique for pelvic realignment performed due to ant rotated right innominate and issued written instructions. Physical Therapy Plan Frequency and Duration Frequency of Treatment 2x/Week Duration of treatment (weeks) 8 Plan of Care Start Date 04/14/23 Plan of Care End Date 06/14/23 Therapeutic Interventions Therapeutic Interventions Gait Training,Home Exercise Program,Manual Therapy,Patient /Caregiver Education,Self-Care /Home Management,Soft Tissue Mobilization,Taping, Therapeutic Activities, Therapeutic Exercises Modalities Cold Pack/Ice Massage,Electric Stimulation,Hot Packs, Infrared Therapy,Ultrasound Next Visit Focus/Plan Next Note Type Treatment Note Next Visit Plan Gentle ther ex for left knee strengthening and ROM. Continue gait training. Pelvic realignment techniques as indicated. Modalities and manual therapy PRN pain. Kinesiotape to left knee.
--- NOTE | 2023-04-20 16:00 | PT.OTN ---
Current Diagnoses Pain in left knee (04/20/23) Difficulty in walking, not elsewhere classified (04/20/23) Weakness (04/20/23) Physical Therapy Treatment Note PT-OP-A Visit Information Start: 04/13/23 14:59 Freq: Status: Active Protocol: Document 04/20/23 11:20 [facility]AK (Rec: 04/20/23 12:05 [facility] [id number]) Out-Patient Physical Therapy Visit Information Visit Information Visit Type Treatment Note Visit Start Time 11:20 Visit Stop Time 12:10 Total Visit Minutes 50 Visit Number 3 PT-OP-B Current Condition Start: 04/13/23 14:59 Freq: Status: Active Protocol: Document 04/20/23 11:20 SAK (Rec: 04/20/23 12:05 [facility] [id number]) Current Condition History of Current Condition Onset Date November 2020 Current Complaints left knee pain History of Current Condition Working from home with ankles crossed for long day, couldn't walk, swelling of left knee. Went to ER; x-ray-fluid on her knee. Went to multiple doctors. Now with Dr. Bland, had knee aspirated 2 weeks ago. States left knee aki and clicks at times. PT order is for left knee pain, but of bigger concern to patient at this time is LBP and anterior hip/groin pain. Went to [place], iced and elevated. Onset of LBP with radicular symtpms right LE after doing a lot of yardwork March 26. Onset of LBP and now experiencing excruitiating pain. States she wakes up in excrutiating pain intermittantly, CT scan has been ordered for spine and abdomen to r/o anything more seriors. R LBP radiating down to calf. Prior Treatments and Tests 2014 herniated disc L4, has had injection, better for a long time. left knee aspirated 2 weeks ago. ER 2x and urgent care 1x past 10 days due to sciatica and hernia. Future Testing and Treatments Planned Has colonoscopy on Thursday. Awaiting approval for CT scan for LB and abdomen/groin Treatment Goals Patient/Caregiver Goals Decrease knee pain, improve walking Prior Functional Status Baseline Function- ADL's Independent Baseline Function- Mobility Independent Baseline Function- Gait no difficulty PT-OP-C Subjective Start: 04/13/23 14:59 Freq: Status: Active Protocol: Document 04/20/23 11:20 SAK (Rec: 04/20/23 12:05 [facility] [id number]) OP-PT Subjective Patient Comments Patient Comments Ordered trekking poles, has started Dexamethasone. Wants to work more at how she sits, stands, walks. Still waiting for CT. OP-PT Pain Assessment Pain Behaviors Pain Behaviors Calling Out,Crying,Facial Grimacing,Guarding,Holding Area,Moaning,Restlessness, Wincing PT-OP-G Mobility & Gait Start: 04/13/23 14:59 Freq: Status: Active Protocol: Document 04/14/23 12:30 [facility] (Rec: 04/15/23 17:10 [facility] [id number]) OP Gait Assessment Gait Gait Assistance Required: Independent Assistive Devices Assistive Device None Orthotic/Prosthetic Devices or Brace: No Gait Deviations General Gait Pattern Antalgic,Decreased Stride Length,Festinating,Flexed Trunk Factors Limiting Gait Function Factors Limiting Gait Function Pain Stair Climbing Evaluation Devices Stair Climbing Assistive Devices Left Railing,Right Railing Technique/Endurance Stair Climbing Technique Step to Step PT-OP-H Neuro Start: 04/13/23 14:59 Freq: Status: Active Protocol: Document 04/14/23 12:30 [facility] (Rec: 04/15/23 17:10 [facility] [id number]) Sensation Evaluation Gross Sensation Gross Sensation Right LE Impaired Sensation Description Paresthesia PT-OP-J Posture/Palpation/Skin Start: 04/13/23 14:59 Freq: Status: Active Protocol: Document 04/14/23 12:30 [facility] (Rec: 04/15/23 17:10 [facility] [id number]) Posture Evaluation Position Standing Head/C-Spine Posture Forward Head T-Spine Posture Increased Kyphosis L-Spine Posture Increased Lordosis Pelvis Posture Anteriorly Tilted Weight Distribution Weight Shifted Left Foot Arch (L) Low Arch,(R) Low Arch Palpation Assessment Location left medial knee Palpation Location joint line Palpation Findings Edema,Tenderness PT-OP-K Range of Motion Start: 04/13/23 14:59 Freq: Status: Active Protocol: Document 04/14/23 12:30 [facility] (Rec: 04/15/23 17:10 [facility] [id number]) Knee Goniometric Range of Motion Knee Left Knee ROM WFL No Flexion Active (degrees) 125 Flexion Passive (degrees) 132 Extension Active (degrees) 5 Extension Passive (degrees) 2 Hyper-Extension Active 5 Right Knee ROM WFL Yes Knee ROM Limitations Knee ROM Limitations Pain PT-OP-L Special Tests Start: 04/13/23 14:59 Freq: Status: Active Protocol: Document 04/14/23 12:30 [facility]AK (Rec: 04/15/23 17:10 [facility] [id number]) Special Tests Knee Special Tests Patellar Grind Test Test Results - Hardy Chondromalacia Test Results - Posterior Draw Test Results - Deirdre Test Test Results + Anterior Draw Test Results - Comments difficult to compare to right due to severity of right LE pain and guarding PT-OP-M Strength Start: 04/13/23 14:59 Freq: Status: Active Protocol: Document 04/14/23 12:30 [facility] (Rec: 04/15/23 17:10 [facility] [id number]) Hip Strength Hip Manual Muscle Testing Right Comments diffucult to assess due to severity of pain, generally has antigravity strength, minimal tolerance for resistance Knee Strength Knee Manual Muscle Testing Left Flexion (S2) 4 Good Extension (L3) 4 Good Comments limited by pain Right Flexion (S2) 5 Normal Extension (L3) 5 Normal Ankle/Foot Strength Ankle and Foot Manual Muscle Testing Left Dorsiflexion (L4) 4+ Good+ Plantarflexion (S1) 4+ Good+ Right Dorsiflexion (L4) 5 Normal Plantarflexion (S1) 5 Normal PT-OP-Q Treatments Start: 04/13/23 14:59 Freq: Status: Active Protocol: Document 04/20/23 11:20 SAK (Rec: 04/20/23 12:05 [facility] [id number]) Cardio Equipment Bicycle (Upright) Duration (Minutes) 8 Resistance 4 Seat Position 3 Other 0.88 mi Gym Equipment Sport Cord green Exercise Details fwd Cord/Resistance green Reps/Duration 8x Comments cues for gluteal activation, push off Therapeutic Exercises Supine Exercises glut set Supine Exercise Name sunni and unil Reps/Minutes 5x TrA Reps/Minutes 5x Sitting Exercises shoulder rolls Sitting Exercise Name sunni and unil Reps/Minutes 5x ea scap retr/dep Reps/Minutes 1x Comments from overhead stretch trunk rot Reps/Minutes 2x Comments gentle lateral trunk stretch Reps/Minutes 1x overhead stretch Reps/Minutes 1x Standing Exercises pec stretch Reps/Minutes 2x scap retr/depr Reps/Minutes 2x lateral trunk stretch Reps/Minutes 2x sunni overhead stretch Reps/Minutes 2x Comments from overhead stretch Therapeutic Activity Therapeutic Activity work station problem solving Reps/Minutes 10 Comments patient educated in correct sitting posture, height of chair and computer, frequent change in position and desk stretches to be done throughout the day Gait Training Gait Activity gait with device Device Used trekking poles (2) Level of Assistance SBA, cues Surface firm Distance/Duration 8 min Treatment Focus sequencing, posture, core and gluteal activation Self-Care/Home Management Treatment Education Patient Education Body Mechanics,Home Exercise Program,Posture Other Education gentle isometric Activities Self-Care/Home Management Activities sitting, standing, walking posture and alignment PT-OP-R Modalities Start: 04/13/23 14:59 Freq: Status: Active Protocol: Document 04/20/23 11:20 [facility] (Rec: 04/20/23 16:00 [facility] [id number]) Hot Pack/Cold Pack Treatment Cold Pack Location left knee, right hip Patient Position Hooklying Treatment Duration (minutes) 10 Patient Tolerance Good PT-OP-T Assessment and Plan Start: 04/13/23 14:59 Freq: Status: Active Protocol: Document 04/20/23 11:20 [facility] (Rec: 04/20/23 12:05 [facility] [id number]) Physical Therapy Assessment Impairments Impairments Edema,Gait,Pain,Strength Goals Three Impairment weakness and lack of full left knee ROM Short Term Goal (STG) patient to be instructed in HEP to address above impairments which limit her ability to squat and do other ADL's STG Duration 05/15/23 Skilled Nursing Goal (LTG) Patient will be independent and compliant to HEP and demonstrate left knee ROM WNL and LE strength at least 4+/5 throughout LTG Duration 06/14/23 Two Impairment antalgic gait, step-to pattern on stairs Short Term Goal (STG) Improve patient gait to allow her to walk without a limp on level surfaces STG Duration 05/15/23 Local Superintendent Goal (LTG) Patient will be able to walk without device without a limp on uneven surfaces without increase in pain including stairs with alternating pattern LTG Duration 06/14/23 One Impairment function-limiting left knee pain Impairment LEFS 28% Short Term Goal (STG) Improve LEFS score to at least 45% as measure of improved activity tolerance STG Duration 05/15/23 Skilled Nursing Goal (LTG) Improve LEFS score mariangel at least 60% as measure of improved activity tolerance LTG Duration 06/14/23 Assessment Summary Assessment Improving gait with trekking poles, has ordered for home use. Liked large ice pack and plans to order. Demonstrated good understanding of correct alignment with sitting and standing at work station after education. Updated HEP with emphasis on seated desk stretches Physical Therapy Plan Frequency and Duration Frequency of Treatment 2x/Week Duration of treatment (weeks) 8 Plan of Care Start Date 04/14/23 Plan of Care End Date 06/14/23 Therapeutic Interventions Therapeutic Interventions Gait Training,Home Exercise Program,Manual Therapy,Patient /Caregiver Education,Self-Care /Home Management,Soft Tissue Mobilization,Taping, Therapeutic Activities, Therapeutic Exercises Modalities Cold Pack/Ice Massage,Electric Stimulation,Hot Packs, Infrared Therapy,Ultrasound Next Visit Focus/Plan Next Note Type Treatment Note Next Visit Plan Review HEP. Continue gait training, emphasis on posture and gluteal activation. Add hip ext ex. Pelvic realignment techniques as indicated. Modalities and manual therapy PRN pain. Kinesiotape to left knee.
--- NOTE | 2023-04-22 16:30 | PT.OTN ---
Current Diagnoses Pain in left knee (04/22/23) Difficulty in walking, not elsewhere classified (04/22/23) Weakness (04/22/23) Physical Therapy Treatment Note PT-OP-A Visit Information Start: 04/13/23 14:59 Freq: Status: Active Protocol: Document 04/22/23 12:30 [facility]AK (Rec: 04/22/23 13:18 [facility] [id number]) Out-Patient Physical Therapy Visit Information Visit Information Visit Type Treatment Note Visit Start Time 12:30 Visit Stop Time 13:25 Total Visit Minutes 55 Visit Number 4 Evaluation Information Evaluation Date 04/14/23 PT-OP-B Current Condition Start: 04/13/23 14:59 Freq: Status: Active Protocol: Document 04/22/23 12:30 [facility]AK (Rec: 04/22/23 13:18 [facility] [id number]) Current Condition History of Current Condition Onset Date November 2020 Current Complaints left knee pain History of Current Condition Working from home with ankles crossed for long day, couldn't walk, swelling of left knee. Went to ER; x-ray-fluid on her knee. Went to multiple doctors. Now with Dr. Bland, had knee aspirated 2 weeks ago. States left knee aki and clicks at times. PT order is for left knee pain, but of bigger concern to patient at this time is LBP and anterior hip/groin pain. Went to [place], iced and elevated. Onset of LBP with radicular symtpms right LE after doing a lot of yardwork March 26. Onset of LBP and now experiencing excruitiating pain. States she wakes up in excrutiating pain intermittantly, CT scan has been ordered for spine and abdomen to r/o anything more seriors. R LBP radiating down to calf. Prior Treatments and Tests 2013 herniated disc L4, has had injection, better for a long time. left knee aspirated 2 weeks ago. ER 2x and urgent care 1x past 10 days due to sciatica and hernia. Future Testing and Treatments Planned Has colonoscopy on Thursday. Awaiting approval for CT scan for LB and abdomen/groin Treatment Goals Patient/Caregiver Goals Decrease knee pain, improve walking Prior Functional Status Baseline Function- ADL's Independent Baseline Function- Mobility Independent Baseline Function- Gait no difficulty PT-OP-C Subjective Start: 04/13/23 14:59 Freq: Status: Active Protocol: Document 04/22/23 12:30 [facility] (Rec: 04/22/23 13:18 [facility] [id number]) OP-PT Subjective Patient Comments Patient Comments Finished Dexamemethasone last night, pain higher today. Feels we are on the right track with PT with looking at how she moves and positions herself, the weakness in her core. States she'll do whatever she needs to to get better, wants to be able to walk simple community distances without difficulty. Having a CT of abdomen to look at hernia. Reports left knee swelling has increased recently. Right LE pain persists from low back to LE. Reports prior injection in her spine was helpful for a long time. Doing desk stretches and changing position more frequently. OP-PT Pain Assessment Pain Behaviors Pain Behaviors Calling Out,Crying,Facial Grimacing,Guarding,Holding Area,Moaning,Restlessness, Wincing PT-OP-G Mobility & Gait Start: 04/13/23 14:59 Freq: Status: Active Protocol: Document 04/14/23 12:30 [facility] (Rec: 04/15/23 17:10 [facility] [id number]) OP Gait Assessment Gait Gait Assistance Required: Independent Assistive Devices Assistive Device None Orthotic/Prosthetic Devices or Brace: No Gait Deviations General Gait Pattern Antalgic,Decreased Stride Length,Festinating,Flexed Trunk Factors Limiting Gait Function Factors Limiting Gait Function Pain Stair Climbing Evaluation Devices Stair Climbing Assistive Devices Left Railing,Right Railing Technique/Endurance Stair Climbing Technique Step to Step PT-OP-H Neuro Start: 04/13/23 14:59 Freq: Status: Active Protocol: Document 04/14/23 12:30 [facility] (Rec: 04/15/23 17:10 [facility] [id number]) Sensation Evaluation Gross Sensation Gross Sensation Right LE Impaired Sensation Description Paresthesia PT-OP-J Posture/Palpation/Skin Start: 04/13/23 14:59 Freq: Status: Active Protocol: Document 04/14/23 12:30 [facility] (Rec: 04/15/23 17:10 [facility] [id number]) Posture Evaluation Position Standing Head/C-Spine Posture Forward Head T-Spine Posture Increased Kyphosis L-Spine Posture Increased Lordosis Pelvis Posture Anteriorly Tilted Weight Distribution Weight Shifted Left Foot Arch (L) Low Arch,(R) Low Arch Palpation Assessment Location left medial knee Palpation Location joint line Palpation Findings Edema,Tenderness PT-OP-K Range of Motion Start: 04/13/23 14:59 Freq: Status: Active Protocol: Document 04/14/23 12:30 [facility] (Rec: 04/15/23 17:10 [facility] [id number]) Knee Goniometric Range of Motion Knee Left Knee ROM WFL No Flexion Active (degrees) 125 Flexion Passive (degrees) 132 Extension Active (degrees) 5 Extension Passive (degrees) 2 Hyper-Extension Active 5 Right Knee ROM WFL Yes Knee ROM Limitations Knee ROM Limitations Pain PT-OP-L Special Tests Start: 04/13/23 14:59 Freq: Status: Active Protocol: Document 04/14/23 12:30 [facility] (Rec: 04/15/23 17:10 [facility] [id number]) Special Tests Knee Special Tests Patellar Grind Test Test Results - Hardy Chondromalacia Test Results - Posterior Draw Test Results - Deirdre Test Test Results + Anterior Draw Test Results - Comments difficult to compare to right due to severity of right LE pain and guarding PT-OP-M Strength Start: 04/13/23 14:59 Freq: Status: Active Protocol: Document 04/14/23 12:30 [facility] (Rec: 04/15/23 17:10 [facility] [id number]) Hip Strength Hip Manual Muscle Testing Right Comments diffucult to assess due to severity of pain, generally has antigravity strength, minimal tolerance for resistance Knee Strength Knee Manual Muscle Testing Left Flexion (S2) 4 Good Extension (L3) 4 Good Comments limited by pain Right Flexion (S2) 5 Normal Extension (L3) 5 Normal Ankle/Foot Strength Ankle and Foot Manual Muscle Testing Left Dorsiflexion (L4) 4+ Good+ Plantarflexion (S1) 4+ Good+ Right Dorsiflexion (L4) 5 Normal Plantarflexion (S1) 5 Normal PT-OP-Q Treatments Start: 04/13/23 14:59 Freq: Status: Active Protocol: Document 04/22/23 12:30 [facility] (Rec: 04/22/23 13:18 [facility] [id number]) Cardio Equipment Recumbent Bicycle Duration (Minutes) 8 Resistance 4 Seat Position 4 Gym Equipment Shuttle Recovery Unilateral Squats Resistance 25 Shuttle Recovery Platform Stable Bilateral Squats Resistance 50 Shuttle Recovery Platform Stable Reps/Time 10x2 Therapeutic Exercises Supine Exercises piriformis stretch Reps/Minutes 2x30 TrA Reps/Minutes 5x Standing Exercises walking with reaching Reps/Minutes 5 min Comments cues for side lengthening, gluteal activation Gait Training Gait Activity slow gait Treatment Focus cues for aligment, gluteal activation gait with device Device Used trekking poles (2) Level of Assistance SBA, cues Surface firm Distance/Duration 8 min Treatment Focus sequencing, posture, core and gluteal activation Self-Care/Home Management Treatment Education Patient Education Body Mechanics,Home Exercise Program,Posture Other Education side lengthening, gluteal activation Activities Self-Care/Home Management Activities reviewed sitting, standing, walking posture and alignment PT-OP-R Modalities Start: 04/13/23 14:59 Freq: Status: Active Protocol: Document 04/22/23 12:30 [facility] (Rec: 04/22/23 13:18 [facility] [id number]) Hot Pack/Cold Pack Treatment Cold Pack Location left knee, right hip Patient Position Hooklying Treatment Duration (minutes) 10 Patient Tolerance Good Comments 90/90 PT-OP-T Assessment and Plan Start: 04/13/23 14:59 Freq: Status: Active Protocol: Document 04/22/23 12:30 [facility] (Rec: 04/22/23 13:18 [facility] [id number]) Physical Therapy Assessment Goals Three Impairment weakness and lack of full left knee ROM Short Term Goal (STG) patient to be instructed in HEP to address above impairments which limit her ability to squat and do other ADL's STG Duration 05/15/23 Nanny/Household Manager Goal (LTG) Patient will be independent and compliant to HEP and demonstrate left knee ROM WNL and LE strength at least 4+/5 throughout LTG Duration 06/14/23 Two Impairment antalgic gait, step-to pattern on stairs Short Term Goal (STG) Improve patient gait to allow her to walk without a limp on level surfaces STG Duration 05/15/23 Mcfp Goal (LTG) Patient will be able to walk without device without a limp on uneven surfaces without increase in pain including stairs with alternating pattern LTG Duration 06/14/23 One Impairment function-limiting left knee pain Impairment LEFS 28% Short Term Goal (STG) Improve LEFS score to at least 45% as measure of improved activity tolerance STG Duration 05/15/23 Nanny/Household Manager Goal (LTG) Improve LEFS score mariangel at least 60% as measure of improved activity tolerance LTG Duration 06/14/23 Assessment Summary Assessment Patient demonstrating improved postural awareness but having difficulty walking. Improved gait with trekking poles, hasn't received ordered ones yet. Anxious about her pain after finishing Dexamethasone, tearful about high pain level , though improving understanding of contributing factors, altered biomechanics and habitual movement and positioning habits. Physical Therapy Plan Frequency and Duration Frequency of Treatment 2x/Week Duration of treatment (weeks) 8 Plan of Care Start Date 04/14/23 Plan of Care End Date 06/14/23 Therapeutic Interventions Therapeutic Interventions Gait Training,Home Exercise Program,Manual Therapy,Patient /Caregiver Education,Self-Care /Home Management,Soft Tissue Mobilization,Taping, Therapeutic Activities, Therapeutic Exercises Modalities Cold Pack/Ice Massage,Electric Stimulation,Hot Packs, Infrared Therapy,Ultrasound Next Visit Focus/Plan Next Note Type Treatment Note Next Visit Plan Assess response to walking with reaching exercise for right side lengthening, and continued focus on gluteal and core activation. Pelvic realigment techniques as indicated if lengthening right side not adequate to decrease symptoms. Kinesiotape left knee. Modalities and manual therapy PRN pain.
--- NOTE | 2023-04-27 16:03 | PT.OTN ---
Current Diagnoses Pain in left knee (04/27/23) Difficulty in walking, not elsewhere classified (04/27/23) Weakness (04/27/23) Physical Therapy Treatment Note PT-OP-A Visit Information Start: 04/13/23 14:59 Freq: Status: Active Protocol: Document 04/27/23 11:27 NBM (Rec: 04/27/23 12:21 NBM [id number]) Out-Patient Physical Therapy Visit Information Visit Information Visit Type Treatment Note Visit Note Pt late, short session offered . 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 Went to ER; x-ray-fluid on her knee. Went to multiple doctors. Now with Dr. Bland, had knee aspirated 2 weeks ago. States left knee aki and clicks at times. PT order is for left knee pain, but of bigger concern to patient at this time is LBP and anterior hip/groin pain. Went to [place], iced and elevated. Onset of LBP with radicular symtpms right LE after doing a lot of yardwork March 26. Onset of LBP and now experiencing excruitiating pain. States she wakes up in excrutiating pain intermittantly, CT scan has been ordered for spine and abdomen to r/o anything more seriors. R LBP radiating down to calf. Prior Treatments and Tests 2013 herniated disc L4, has had injection, better for a long time. left knee aspirated 2 weeks ago. ER 2x and urgent care 1x past 10 days due to sciatica and hernia. Future Testing and Treatments Planned Has colonoscopy on Thursday. Awaiting approval for CT scan for LB and abdomen/groin Treatment Goals Patient/Caregiver Goals Decrease knee pain, improve walking Prior Functional Status Baseline Function- ADL's Independent Baseline Function- Mobility Independent Baseline Function- Gait no difficulty PT-OP-C Subjective Start: 04/13/23 14:59 Freq: Status: Active Protocol: Document 04/27/23 11:27 NB (Rec: 04/27/23 12:21 [facility] [id number]) OP-PT Subjective Patient Comments Patient Comments Mouna reports mixed up appt times but wants to be seen prior to PCP appt today due to knee swelling but also progress. Received new trekking poles last week and felt she was walking so much better especially Thursday, but L knee swelled up again last weekend. She tried elevating it above her heart and icing it. It was drained by doctor about three weeks ago. She had CT but has not received results yet - she sees PCP later today. PT-OP-G Mobility & Gait Start: 04/13/23 14:59 Freq: Status: Active Protocol: Document 04/14/23 12:30 SAK (Rec: 04/15/23 17:10 [facility] [id number]) OP Gait Assessment Gait Gait Assistance Required: Independent Assistive Devices Assistive Device None Orthotic/Prosthetic Devices or Brace: No Gait Deviations General Gait Pattern Antalgic,Decreased Stride Length,Festinating,Flexed Trunk Factors Limiting Gait Function Factors Limiting Gait Function Pain Stair Climbing Evaluation Devices Stair Climbing Assistive Devices Left Railing,Right Railing Technique/Endurance Stair Climbing Technique Step to Step PT-OP-H Neuro Start: 04/13/23 14:59 Freq: Status: Active Protocol: Document 04/14/23 12:30 SAK (Rec: 04/15/23 17:10 [facility] [id number]) Sensation Evaluation Gross Sensation Gross Sensation Right LE Impaired Sensation Description Paresthesia PT-OP-J Posture/Palpation/Skin Start: 04/13/23 14:59 Freq: Status: Active Protocol: Document 04/14/23 12:30 SAK (Rec: 04/15/23 17:10 [facility] [id number]) Posture Evaluation Position Standing Head/C-Spine Posture Forward Head T-Spine Posture Increased Kyphosis L-Spine Posture Increased Lordosis Pelvis Posture Anteriorly Tilted Weight Distribution Weight Shifted Left Foot Arch (L) Low Arch,(R) Low Arch Palpation Assessment Location left medial knee Palpation Location joint line Palpation Findings Edema,Tenderness PT-OP-K Range of Motion Start: 04/13/23 14:59 Freq: Status: Active Protocol: Document 04/14/23 12:30 [facility] (Rec: 04/15/23 17:10 [facility] [id number]) Knee Goniometric Range of Motion Knee Left Knee ROM WFL No Flexion Active (degrees) 125 Flexion Passive (degrees) 132 Extension Active (degrees) 5 Extension Passive (degrees) 2 Hyper-Extension Active 5 Right Knee ROM WFL Yes Knee ROM Limitations Knee ROM Limitations Pain PT-OP-L Special Tests Start: 04/13/23 14:59 Freq: Status: Active Protocol: Document 04/14/23 12:30 [facility] (Rec: 04/15/23 17:10 [facility] [id number]) Special Tests Knee Special Tests Patellar Grind Test Test Results - Hardy Chondromalacia Test Results - Posterior Draw Test Results - Deirdre Test Test Results + Anterior Draw Test Results - Comments difficult to compare to right due to severity of right LE pain and guarding PT-OP-M Strength Start: 04/13/23 14:59 Freq: Status: Active Protocol: Document 04/14/23 12:30 [facility] (Rec: 04/15/23 17:10 [facility] [id number]) Hip Strength Hip Manual Muscle Testing Right Comments diffucult to assess due to severity of pain, generally has antigravity strength, minimal tolerance for resistance Knee Strength Knee Manual Muscle Testing Left Flexion (S2) 4 Good Extension (L3) 4 Good Comments limited by pain Right Flexion (S2) 5 Normal Extension (L3) 5 Normal Ankle/Foot Strength Ankle and Foot Manual Muscle Testing Left Dorsiflexion (L4) 4+ Good+ Plantarflexion (S1) 4+ Good+ Right Dorsiflexion (L4) 5 Normal Plantarflexion (S1) 5 Normal PT-OP-Q Treatments Start: 04/13/23 14:59 Freq: Status: Active Protocol: Document 04/27/23 11:27 NBM (Rec: 04/27/23 12:21 NB [id number]) Gait Training Gait Activity gait with device Description discussed today Manual Therapy Treatment Soft Tissue Mobilization L knee Body Location anterior knee focus, VMO, quads Mobilization Type Cross-Friction,Other Intensity/Depth Superficial Body Position Hooklying Comments circular strokes, light edema massage, LEs on bolsters 90/90 Self-Care/Home Management Treatment Education Patient Education Home Exercise Program,Joint Protection,Pain Management Other Education Education provided to pt regarding closed chain vs open chain movement, and to avoid unnecessary open chain LE movement like seated LAQs for joint protection due to possible L knee meniscal tear. I/s pt in swelling management with light edema massage and RICE w/ focus on elevation and icing. PT-OP-R Modalities Start: 04/13/23 14:59 Freq: Status: Active Protocol: Document 04/27/23 11:27 NBM (Rec: 04/27/23 15:47 NB [id number]) Hot Pack/Cold Pack Treatment Cold Pack Location left knee, lumbar Patient Position Hooklying Treatment Duration (minutes) 10 Patient Tolerance Good Comments 90/90 PT-OP-T Assessment and Plan Start: 04/13/23 14:59 Freq: Status: Active Protocol: Document 04/27/23 11:27 NBM (Rec: 04/27/23 12:21 [facility] [id number]) Physical Therapy Assessment Rehab Potential Rehabilitation Potential Good Evaluation Complexity Number of Personal Factors/Comorbidities 1-2 Number of Body Systems Impaired 3 Clinical Presentation at Evaluation Evolving Impairments Impairments Edema,Gait,Pain,Strength Goals Three Impairment weakness and lack of full left knee ROM Short Term Goal (STG) patient to be instructed in HEP to address above impairments which limit her ability to squat and do other ADL's STG Duration 05/15/23 Fpc Goal (LTG) Patient will be independent and compliant to HEP and demonstrate left knee ROM WNL and LE strength at least 4+/5 throughout LTG Duration 06/14/23 Two Impairment antalgic gait, step-to pattern on stairs Short Term Goal (STG) Improve patient gait to allow her to walk without a limp on level surfaces STG Duration 05/15/23 Fpc Goal (LTG) Patient will be able to walk without device without a limp on uneven surfaces without increase in pain including stairs with alternating pattern LTG Duration 06/14/23 One Impairment function-limiting left knee pain Impairment LEFS 28% Short Term Goal (STG) Improve LEFS score to at least 45% as measure of improved activity tolerance STG Duration 05/15/23 Fpc Goal (LTG) Improve LEFS score mariangel at least 60% as measure of improved activity tolerance LTG Duration 06/14/23 Assessment Summary Assessment Short session today due to pt confusing appt times but wanting to be see prior to PCP appt due to L knee swelling. Mouna presents with bilateral trekking poles and swollen L knee without easily palpable patellar borders. Instructed pt in swelling management with light edema massage and RICE w/ focus on elevation and icing. Education provided to pt regarding closed chain vs open chain movement, and to avoid unnecessary open chain LE movement like seated LAQs for joint protection consistent w/ possible L knee meniscal tear . L knee swelling observably reduced after manual therapy and further after icing end of session as patellar borders are observably defined and palpable. Physical Therapy Plan Frequency and Duration Frequency of Treatment 2x/Week Duration of treatment (weeks) 8 Plan of Care Start Date 04/14/23 Plan of Care End Date 06/14/23 Therapeutic Interventions Therapeutic Interventions Gait Training,Home Exercise Program,Manual Therapy,Patient /Caregiver Education,Self-Care /Home Management,Soft Tissue Mobilization,Taping, Therapeutic Activities, Therapeutic Exercises Modalities Cold Pack/Ice Massage,Electric Stimulation,Hot Packs, Infrared Therapy,Ultrasound Next Visit Focus/Plan Next Note Type Treatment Note Next Visit Plan Assess response to walking with reaching exercise for right side lengthening, and continued focus on gluteal and core activation. Pelvic realigment techniques as indicated if lengthening right side not adequate to decrease symptoms. Kinesiotape left knee. Modalities and manual therapy PRN pain.
--- NOTE | 2023-04-29 16:02 | PT.OTN ---
Current Diagnoses Pain in left knee (04/29/23) Difficulty in walking, not elsewhere classified (04/29/23) Weakness (04/29/23) Physical Therapy Treatment Note PT-OP-A Visit Information Start: 04/13/23 14:59 Freq: Status: Active Protocol: Document 04/29/23 12:32 SAK (Rec: 04/29/23 13:14 [facility] [id number]) Out-Patient Physical Therapy Visit Information Visit Information Visit Type Treatment Note Visit Start Time 12:33 Visit Stop Time 13:23 Total Visit Minutes 50 Visit Number 6 Number of NEWS PRODUCTION SUPERVISOR Visits 0 Evaluation Information Evaluation Date 04/14/23 PT-OP-B Current Condition Start: 04/13/23 14:59 Freq: Status: Active Protocol: Document 04/22/23 12:30 SAK (Rec: 04/22/23 13:18 SAK [id number]) Current Condition History of Current Condition Onset Date November 2020 Current Complaints left knee pain History of Current Condition Working from home with ankles crossed for long day, couldn't walk, swelling of left knee. Went to ER; x-ray-fluid on her knee. Went to multiple doctors. Now with Dr. Bland, had knee aspirated 2 weeks ago. States left knee aki and clicks at times. PT order is for left knee pain, but of bigger concern to patient at this time is LBP and anterior hip/groin pain. Went to [place], iced and elevated. Onset of LBP with radicular symtpms right LE after doing a lot of yardwork March 26. Onset of LBP and now experiencing excruitiating pain. States she wakes up in excrutiating pain intermittantly, CT scan has been ordered for spine and abdomen to r/o anything more seriors. R LBP radiating down to calf. Prior Treatments and Tests 2014 herniated disc L4, has had injection, better for a long time. left knee aspirated 2 weeks ago. ER 2x and urgent care 1x past 10 days due to sciatica and hernia. Future Testing and Treatments Planned Has colonoscopy on Thursday. Awaiting approval for CT scan for LB and abdomen/groin Treatment Goals Patient/Caregiver Goals Decrease knee pain, improve walking Prior Functional Status Baseline Function- ADL's Independent Baseline Function- Mobility Independent Baseline Function- Gait no difficulty PT-OP-C Subjective Start: 04/13/23 14:59 Freq: Status: Active Protocol: Document 04/29/23 12:32 SAK (Rec: 04/29/23 13:14 [facility] [id number]) OP-PT Subjective Patient Comments Patient Comments Pain hasn't changed much though had some relief with manual traction and feels walking with lengthening helpful. Setting alarm for 1 hr to help her to remember to get up from her chair more frequently during the day. Has been doing the lengthening walk exercise, decreases some pain. Manual traction was helpful, day after PT with manual traction reported improved pain. Left knee remains swollen, still awaiting CT for kknee. PT-OP-G Mobility & Gait Start: 04/13/23 14:59 Freq: Status: Active Protocol: Document 04/14/23 12:30 SAK (Rec: 04/15/23 17:10 [facility] [id number]) OP Gait Assessment Gait Gait Assistance Required: Independent Assistive Devices Assistive Device None Orthotic/Prosthetic Devices or Brace: No Gait Deviations General Gait Pattern Antalgic,Decreased Stride Length,Festinating,Flexed Trunk Factors Limiting Gait Function Factors Limiting Gait Function Pain Stair Climbing Evaluation Devices Stair Climbing Assistive Devices Left Railing,Right Railing Technique/Endurance Stair Climbing Technique Step to Step PT-OP-H Neuro Start: 04/13/23 14:59 Freq: Status: Active Protocol: Document 04/14/23 12:30 SAK (Rec: 04/15/23 17:10 [facility] [id number]) Sensation Evaluation Gross Sensation Gross Sensation Right LE Impaired Sensation Description Paresthesia PT-OP-J Posture/Palpation/Skin Start: 04/13/23 14:59 Freq: Status: Active Protocol: Document 04/14/23 12:30 SAK (Rec: 04/15/23 17:10 [facility] [id number]) Posture Evaluation Position Standing Head/C-Spine Posture Forward Head T-Spine Posture Increased Kyphosis L-Spine Posture Increased Lordosis Pelvis Posture Anteriorly Tilted Weight Distribution Weight Shifted Left Foot Arch (L) Low Arch,(R) Low Arch Palpation Assessment Location left medial knee Palpation Location joint line Palpation Findings Edema,Tenderness PT-OP-K Range of Motion Start: 04/13/23 14:59 Freq: Status: Active Protocol: Document 04/14/23 12:30 SAK (Rec: 04/15/23 17:10 [facility] [id number]) Knee Goniometric Range of Motion Knee Left Knee ROM WFL No Flexion Active (degrees) 125 Flexion Passive (degrees) 132 Extension Active (degrees) 5 Extension Passive (degrees) 2 Hyper-Extension Active 5 Right Knee ROM WFL Yes Knee ROM Limitations Knee ROM Limitations Pain PT-OP-L Special Tests Start: 04/13/23 14:59 Freq: Status: Active Protocol: Document 04/14/23 12:30 [facility] (Rec: 04/15/23 17:10 [facility] [id number]) Special Tests Knee Special Tests Patellar Grind Test Test Results - Hrady Chondromalacia Test Results - Posterior Draw Test Results - Deirdre Test Test Results + Anterior Draw Test Results - Comments difficult to compare to right due to severity of right LE pain and guarding PT-OP-M Strength Start: 04/13/23 14:59 Freq: Status: Active Protocol: Document 04/14/23 12:30 [facility] (Rec: 04/15/23 17:10 [facility] [id number]) Hip Strength Hip Manual Muscle Testing Right Comments diffucult to assess due to severity of pain, generally has antigravity strength, minimal tolerance for resistance Knee Strength Knee Manual Muscle Testing Left Flexion (S2) 4 Good Extension (L3) 4 Good Comments limited by pain Right Flexion (S2) 5 Normal Extension (L3) 5 Normal Ankle/Foot Strength Ankle and Foot Manual Muscle Testing Left Dorsiflexion (L4) 4+ Good+ Plantarflexion (S1) 4+ Good+ Right Dorsiflexion (L4) 5 Normal Plantarflexion (S1) 5 Normal PT-OP-Q Treatments Start: 04/13/23 14:59 Freq: Status: Active Protocol: Document 04/29/23 12:32 [facility] (Rec: 04/29/23 13:14 [facility] [id number]) Cardio Equipment Recumbent Bicycle Duration (Minutes) 8 Resistance 4 Seat Position 4 Therapeutic Exercises Supine Exercises bridge Supine Exercise Name segmental, sunni and unil Reps/Minutes 10x glut set Supine Exercise Name sunni and unil Reps/Minutes 5x TrA Reps/Minutes 5x Prone Exercises quadriped Prone Exercise Name hip extension Reps/Minutes 10 Comments cues Standing Exercises hip ext Reps/Minutes 10x Gait Training Gait Activity gait with device Device Used [employer] Level of Assistance SBA, cues Surface firm Distance/Duration 100 ft Treatment Focus sequencing, gluteal activation Manual Therapy Treatment Manual Traction Lumbar Details strap Body Position 90/90 Reps/Duration 10 min Taping left knee Treatment Focus edema reduction Type of Tape kinesiotape Skin Inspection intact Comments advised to wear no more than 5 days, remove if skin irritation or uncomfortable PT-OP-R Modalities Start: 04/13/23 14:59 Freq: Status: Active Protocol: Document 04/29/23 12:32 SAK (Rec: 04/29/23 16:01 [facility] [id number]) Hot Pack/Cold Pack Treatment Cold Pack Location left knee, lumbar Patient Position Hooklying Treatment Duration (minutes) 10 Patient Tolerance Good Comments 90/90 PT-OP-T Assessment and Plan Start: 04/13/23 14:59 Freq: Status: Active Protocol: Document 04/29/23 12:32 [facility] (Rec: 04/29/23 13:14 [facility] [id number]) Physical Therapy Assessment Impairments Impairments Edema,Gait,Pain,Strength Goals Three Impairment weakness and lack of full left knee ROM Short Term Goal (STG) patient to be instructed in HEP to address above impairments which limit her ability to squat and do other ADL's STG Duration 05/15/23 Tow Car Driver Goal (LTG) Patient will be independent and compliant to HEP and demonstrate left knee ROM WNL and LE strength at least 4+/5 throughout LTG Duration 06/14/23 Two Impairment antalgic gait, step-to pattern on stairs Short Term Goal (STG) Improve patient gait to allow her to walk without a limp on level surfaces STG Duration 05/15/23 Tow Car Driver Goal (LTG) Patient will be able to walk without device without a limp on uneven surfaces without increase in pain including stairs with alternating pattern LTG Duration 06/14/23 One Impairment function-limiting left knee pain Impairment LEFS 28% Short Term Goal (STG) Improve LEFS score to at least 45% as measure of improved activity tolerance STG Duration 05/15/23 Fpc Goal (LTG) Improve LEFS score mariangel at least 60% as measure of improved activity tolerance LTG Duration 06/14/23 Assessment Summary Assessment Patient demonstrating improved gait with trekking poles. Instructed further in importance of gluteal muscle activation functionally, instructed in supine, quadriped, and standing gluteal strengthening options and issued written handout. Patient may benefit from considering home lumbar traction unit. Physical Therapy Plan Frequency and Duration Frequency of Treatment 2x/Week Duration of treatment (weeks) 8 Plan of Care Start Date 04/14/23 Plan of Care End Date 06/14/23 Therapeutic Interventions Therapeutic Interventions Gait Training,Home Exercise Program,Manual Therapy,Patient /Caregiver Education,Self-Care /Home Management,Soft Tissue Mobilization,Taping, Therapeutic Activities, Therapeutic Exercises Modalities Cold Pack/Ice Massage,Electric Stimulation,Hot Packs, Infrared Therapy,Ultrasound Next Visit Focus/Plan Next Note Type Treatment Note Next Visit Plan Assess response to walking with reaching exercise for right side lengthening, and continued focus on gluteal and core activation. Pelvic realigment techniques as indicated if lengthening right side not adequate to decrease symptoms. Kinesiotape left knee. Modalities and manual therapy PRN pain.
--- NOTE | 2023-05-06 09:56 | PT.OTN ---
Current Diagnoses Pain in left knee (05/06/23) Difficulty in walking, not elsewhere classified (05/06/23) Weakness (05/06/23) Physical Therapy Treatment Note PT-OP-A Visit Information Start: 04/13/23 14:59 Freq: Status: Active Protocol: Document 05/06/23 08:04 SAK (Rec: 05/06/23 08:48 SAK [id number]) Out-Patient Physical Therapy Visit Information Visit Information Visit Type Treatment Note Visit Start Time 12:33 Visit Stop Time 13:23 Total Visit Minutes 50 Visit Number 7 Number of QUALITY CONTROL EXPERT Visits 0 Evaluation Information Evaluation Date 04/14/23 PT-OP-B Current Condition Start: 04/13/23 14:59 Freq: Status: Active Protocol: Document 04/22/23 12:30 SAK (Rec: 04/22/23 13:18 SAK [id number]) Current Condition History of Current Condition Onset Date November 2020 Current Complaints left knee pain History of Current Condition Working from home with ankles crossed for long day, couldn't walk, swelling of left knee. Went to ER; x-ray-fluid on her knee. Went to multiple doctors. Now with Dr. Bland, had knee aspirated 2 weeks ago. States left knee aki and clicks at times. PT order is for left knee pain, but of bigger concern to patient at this time is LBP and anterior hip/groin pain. Went to [place], iced and elevated. Onset of LBP with radicular symtpms right LE after doing a lot of yardwork March 26. Onset of LBP and now experiencing excruitiating pain. States she wakes up in excrutiating pain intermittantly, CT scan has been ordered for spine and abdomen to r/o anything more seriors. R LBP radiating down to calf. Prior Treatments and Tests 2014 herniated disc L4, has had injection, better for a long time. left knee aspirated 2 weeks ago. ER 2x and urgent care 1x past 10 days due to sciatica and hernia. Future Testing and Treatments Planned Has colonoscopy on Thursday. Awaiting approval for CT scan for LB and abdomen/groin Treatment Goals Patient/Caregiver Goals Decrease knee pain, improve walking Prior Functional Status Baseline Function- ADL's Independent Baseline Function- Mobility Independent Baseline Function- Gait no difficulty PT-OP-C Subjective Start: 04/13/23 14:59 Freq: Status: Active Protocol: Document 05/06/23 08:04 [facility] (Rec: 05/06/23 08:48 [facility] [id number]) OP-PT Subjective Patient Comments Patient Comments Doing bed positioning at night , doing HEP. Has urinalysis, no UTI. Hasn't had MRI yet. Pain persists, worse at night. Sees Dr. Conde 05/24/23. Now having numbness right LE. PT-OP-G Mobility & Gait Start: 04/13/23 14:59 Freq: Status: Active Protocol: Document 04/14/23 12:30 [facility] (Rec: 04/15/23 17:10 [facility] [id number]) OP Gait Assessment Gait Gait Assistance Required: Independent Assistive Devices Assistive Device None Orthotic/Prosthetic Devices or Brace: No Gait Deviations General Gait Pattern Antalgic,Decreased Stride Length,Festinating,Flexed Trunk Factors Limiting Gait Function Factors Limiting Gait Function Pain Stair Climbing Evaluation Devices Stair Climbing Assistive Devices Left Railing,Right Railing Technique/Endurance Stair Climbing Technique Step to Step PT-OP-H Neuro Start: 04/13/23 14:59 Freq: Status: Active Protocol: Document 04/14/23 12:30 [facility] (Rec: 04/15/23 17:10 [facility] [id number]) Sensation Evaluation Gross Sensation Gross Sensation Right LE Impaired Sensation Description Paresthesia PT-OP-J Posture/Palpation/Skin Start: 04/13/23 14:59 Freq: Status: Active Protocol: Document 04/14/23 12:30 [facility] (Rec: 04/15/23 17:10 [facility] [id number]) Posture Evaluation Position Standing Head/C-Spine Posture Forward Head T-Spine Posture Increased Kyphosis L-Spine Posture Increased Lordosis Pelvis Posture Anteriorly Tilted Weight Distribution Weight Shifted Left Foot Arch (L) Low Arch,(R) Low Arch Palpation Assessment Location left medial knee Palpation Location joint line Palpation Findings Edema,Tenderness PT-OP-K Range of Motion Start: 04/13/23 14:59 Freq: Status: Active Protocol: Document 04/14/23 12:30 [facility] (Rec: 04/15/23 17:10 [facility] [id number]) Knee Goniometric Range of Motion Knee Left Knee ROM WFL No Flexion Active (degrees) 125 Flexion Passive (degrees) 132 Extension Active (degrees) 5 Extension Passive (degrees) 2 Hyper-Extension Active 5 Right Knee ROM WFL Yes Knee ROM Limitations Knee ROM Limitations Pain PT-OP-L Special Tests Start: 04/13/23 14:59 Freq: Status: Active Protocol: Document 04/14/23 12:30 [facility] (Rec: 04/15/23 17:10 [facility] [id number]) Special Tests Knee Special Tests Patellar Grind Test Test Results - Hardy Chondromalacia Test Results - Posterior Draw Test Results - Deirdre Test Test Results + Anterior Draw Test Results - Comments difficult to compare to right due to severity of right LE pain and guarding PT-OP-M Strength Start: 04/13/23 14:59 Freq: Status: Active Protocol: Document 04/14/23 12:30 [facility] (Rec: 04/15/23 17:10 [facility] [id number]) Hip Strength Hip Manual Muscle Testing Right Comments diffucult to assess due to severity of pain, generally has antigravity strength, minimal tolerance for resistance Knee Strength Knee Manual Muscle Testing Left Flexion (S2) 4 Good Extension (L3) 4 Good Comments limited by pain Right Flexion (S2) 5 Normal Extension (L3) 5 Normal Ankle/Foot Strength Ankle and Foot Manual Muscle Testing Left Dorsiflexion (L4) 4+ Good+ Plantarflexion (S1) 4+ Good+ Right Dorsiflexion (L4) 5 Normal Plantarflexion (S1) 5 Normal PT-OP-Q Treatments Start: 04/13/23 14:59 Freq: Status: Active Protocol: Document 05/06/23 08:04 [facility] (Rec: 05/06/23 08:48 [facility] [id number]) Cardio Equipment Recumbent Bicycle Duration (Minutes) 8 Resistance 4 Seat Position 4 Therapeutic Exercises Supine Exercises Joao stretch Reps/Minutes 1x30 Comments poor tolerance, deviation of right hip abduction and IR, caused pain right Sidelying Exercises reverse clam Reps/Minutes 10x clamshell Reps/Minutes 10x Standing Exercises hip ext Standing Exercise Name leaning over table. Reps/Minutes 10x Comments replace all 4's Therapeutic Activity Therapeutic Activity lifting Reps/Minutes 8 min Comments lifting technique, long spine, hip hings Gait Training Gait Activity gait with device Device Used [employer] Level of Assistance SBA, cues Surface firm Distance/Duration 100 ft Treatment Focus sequencing, gluteal activation Manual Therapy Treatment Soft Tissue Mobilization piriformis right Mobilization Type Myofascial Release,Sustained Pressure Intensity/Depth Moderate Body Position Prone Taping left knee Treatment Focus edema reduction Type of Tape kinesiotape Skin Inspection intact Comments advised to wear no more than 5 days, remove if skin irritation or uncomfortable Self-Care/Home Management Treatment Education Patient Education Home Exercise Program,Joint Protection,Pain Management Other Education cues for technique, focus on core PT-OP-R Modalities Start: 04/13/23 14:59 Freq: Status: Active Protocol: Document 05/06/23 08:04 [facility] (Rec: 05/06/23 08:48 [facility] [id number]) Hot Pack/Cold Pack Treatment Cold Pack Location left knee, lumbar Patient Position Hooklying Treatment Duration (minutes) 10 Patient Tolerance Good Comments 90/90 Spinal Traction Traction Treatment Lumbar Method Static Patient Position Hooklying Force Applied (Pounds) 55 Duration of Treatment (Minutes) 10 Heating Pad Applied No Traction Treatment Comment legs on bolster, ice after PT-OP-T Assessment and Plan Start: 04/13/23 14:59 Freq: Status: Active Protocol: Document 05/06/23 08:04 [facility] (Rec: 05/06/23 08:48 [facility] [id number]) Physical Therapy Assessment Impairments Impairments Edema,Gait,Pain,Strength Goals Three Impairment weakness and lack of full left knee ROM Short Term Goal (STG) patient to be instructed in HEP to address above impairments which limit her ability to squat and do other ADL's STG Duration 05/15/23 Jail Goal (LTG) Patient will be independent and compliant to HEP and demonstrate left knee ROM WNL and LE strength at least 4+/5 throughout LTG Duration 06/14/23 Two Impairment antalgic gait, step-to pattern on stairs Short Term Goal (STG) Improve patient gait to allow her to walk without a limp on level surfaces STG Duration 05/15/23 Jail Goal (LTG) Patient will be able to walk without device without a limp on uneven surfaces without increase in pain including stairs with alternating pattern LTG Duration 06/14/23 One Impairment function-limiting left knee pain Impairment LEFS 28% Short Term Goal (STG) Improve LEFS score to at least 45% as measure of improved activity tolerance STG Duration 05/15/23 Senior Inspector Goal (LTG) Improve LEFS score mariangel at least 60% as measure of improved activity tolerance LTG Duration 10/8/23 Assessment Summary Assessment Patient high pain level persists despite changing positions more frequently, walking with trekking poles, HEP, ice, modification of bed positioning. Added clamshell and modified gluteal strengthening to standing bent over table/bed with good tolerance, significant weakness. Physical Therapy Plan Frequency and Duration Frequency of Treatment 2x/Week Duration of treatment (weeks) 8 Plan of Care Start Date 04/14/23 Plan of Care End Date 06/14/23 Therapeutic Interventions Therapeutic Interventions Gait Training,Home Exercise Program,Manual Therapy,Patient /Caregiver Education,Self-Care /Home Management,Soft Tissue Mobilization,Taping, Therapeutic Activities, Therapeutic Exercises Modalities Cold Pack/Ice Massage,Electric Stimulation,Hot Packs, Infrared Therapy,Ultrasound Next Visit Focus/Plan Next Note Type Treatment Note Next Visit Plan evaluate response to home traction unit, modification of gluteal strengthening to standing with trunk supported on bed or table. Consider QL stretch and strengthen, hip and pelvic mobiization, and progress core stab
--- NOTE | 2023-05-08 08:15 | PT.OTN ---
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 Went to ER; x-ray-fluid on her knee. Went to multiple doctors. Now with Dr. Bland, had knee aspirated 2 weeks ago. States left knee aki and clicks at times. PT order is for left knee pain, but of bigger concern to patient at this time is LBP and anterior hip/groin pain. Went to [place], iced and elevated. Onset of LBP with radicular symtpms right LE after doing a lot of yardwork March 26. Onset of LBP and now experiencing excruitiating pain. States she wakes up in excrutiating pain intermittantly, CT scan has been ordered for spine and abdomen to r/o anything more seriors. R LBP radiating down to calf. Prior Treatments and Tests 2014 herniated disc L4, has had injection, better for a long time. left knee aspirated 2 weeks ago. ER 2x and urgent care 1x past 10 days due to sciatica and hernia. Future Testing and Treatments Planned Has colonoscopy on Thursday. Awaiting approval for CT scan for LB and abdomen/groin Treatment Goals Patient/Caregiver Goals Decrease knee pain, improve walking Prior Functional Status Baseline Function- ADL's Independent Baseline Function- Mobility Independent Baseline Function- Gait no difficulty PT-OP-C Subjective Start: 04/13/23 14:59 Freq: Status: Active Protocol: Document 05/08/23 07:31 SP (Rec: 05/08/23 08:30 SP [id number]) OP-PT Subjective Patient Comments Patient Comments Pt reports she has had back pain since the traction trialed last tx, stated started when lifted her bottom to put cold back under back after traction and doesn't want to do that again. She states is trying to do HEP. Pt reports having numbness R low back and lateral thigh now. Pt report the Ktaping did seem to help but doesn't want to reply, took alot time get off, she did notice more swelling in ankle. PT-OP-G Mobility & Gait Start: 04/13/23 14:59 Freq: Status: Active Protocol: Document 04/14/23 12:30 SAK (Rec: 04/15/23 17:10 [facility] [id number]) OP Gait Assessment Gait Gait Assistance Required: Independent Assistive Devices Assistive Device None Orthotic/Prosthetic Devices or Brace: No Gait Deviations General Gait Pattern Antalgic,Decreased Stride Length,Festinating,Flexed Trunk Factors Limiting Gait Function Factors Limiting Gait Function Pain Stair Climbing Evaluation Devices Stair Climbing Assistive Devices Left Railing,Right Railing Technique/Endurance Stair Climbing Technique Step to Step PT-OP-H Neuro Start: 04/13/23 14:59 Freq: Status: Active Protocol: Document 04/14/23 12:30 SAK (Rec: 04/15/23 17:10 [facility] [id number]) Sensation Evaluation Gross Sensation Gross Sensation Right LE Impaired Sensation Description Paresthesia PT-OP-J Posture/Palpation/Skin Start: 04/13/23 14:59 Freq: Status: Active Protocol: Document 04/14/23 12:30 SAK (Rec: 04/15/23 17:10 SAK [id number]) Posture Evaluation Position Standing Head/C-Spine Posture Forward Head T-Spine Posture Increased Kyphosis L-Spine Posture Increased Lordosis Pelvis Posture Anteriorly Tilted Weight Distribution Weight Shifted Left Foot Arch (L) Low Arch,(R) Low Arch Palpation Assessment Location left medial knee Palpation Location joint line Palpation Findings Edema,Tenderness PT-OP-K Range of Motion Start: 04/13/23 14:59 Freq: Status: Active Protocol: Document 04/14/23 12:30 SAK (Rec: 04/15/23 17:10 [facility] [id number]) Knee Goniometric Range of Motion Knee Left Knee ROM WFL No Flexion Active (degrees) 125 Flexion Passive (degrees) 132 Extension Active (degrees) 5 Extension Passive (degrees) 2 Hyper-Extension Active 5 Right Knee ROM WFL Yes Knee ROM Limitations Knee ROM Limitations Pain PT-OP-L Special Tests Start: 04/13/23 14:59 Freq: Status: Active Protocol: Document 04/14/23 12:30 SAK (Rec: 04/15/23 17:10 [facility] [id number]) Special Tests Knee Special Tests Patellar Grind Test Test Results - Hardy Chondromalacia Test Results - Posterior Draw Test Results - Deirdre Test Test Results + Anterior Draw Test Results - Comments difficult to compare to right due to severity of right LE pain and guarding PT-OP-M Strength Start: 04/13/23 14:59 Freq: Status: Active Protocol: Document 04/14/23 12:30 [facility] (Rec: 04/15/23 17:10 [facility] [id number]) Hip Strength Hip Manual Muscle Testing Right Comments diffucult to assess due to severity of pain, generally has antigravity strength, minimal tolerance for resistance Knee Strength Knee Manual Muscle Testing Left Flexion (S2) 4 Good Extension (L3) 4 Good Comments limited by pain Right Flexion (S2) 5 Normal Extension (L3) 5 Normal Ankle/Foot Strength Ankle and Foot Manual Muscle Testing Left Dorsiflexion (L4) 4+ Good+ Plantarflexion (S1) 4+ Good+ Right Dorsiflexion (L4) 5 Normal Plantarflexion (S1) 5 Normal PT-OP-Q Treatments Start: 04/13/23 14:59 Freq: Status: Active Protocol: Document 05/08/23 07:31 SP (Rec: 05/08/23 08:30 SP [id number]) Cardio Equipment Recumbent Bicycle Duration (Minutes) 8 Resistance 4 Seat Position 4 Therapeutic Exercises Supine Exercises november Supine Exercise Name reviewed known Reps/Minutes x10 Comments cued TA, slow pacing. sciatic nerve glide Supine Exercise Name initiated: KTC, Lower leg ext w/ AP Reps/Minutes 2x10 ankle pumps Comments back crack/spasm SKTC Supine Exercise Name trialed for decrease LB, hip tension Side bilateral Reps/Minutes 10 SH x5 reps Comments good feedback stretch LTR Supine Exercise Name trialed for LS ROM Side bilateral Reps/Minutes 5 reps each side Comments cued TA awareness no LB arch. Able go further L than R- inc range reps bridge Supine Exercise Name modified to segmental bridge Reps/Minutes x5 reps Comments good feedback response with ed for TA PPT, seg lift/lower- painfree piriformis stretch Side bilateral Reps/Minutes 20 SH- Comments therapist support RLE Sidelying Exercises reverse clam Reps/Minutes 10x 2 Comments good form and feedback response clamshell Reps/Minutes 10x 2 Comments good form and feedback response Gait Training Gait Activity gait with device Description 2 pt gait Device Used [employer] Level of Assistance SBA, cues Surface firm Distance/Duration 80 ft, 100 ft Treatment Focus sequencing, gluteal activation Comments Cued elongation with TA fac and increase SAROJ improved stability, decreased trunk wt shift Self-Care/Home Management Treatment Education Patient Education Home Exercise Program,Joint Protection,Pain Management Other Education Discussed laying down and elevating BLEs for swelling mgt due to gravity pulls fluid down. Brief discussion end tx can perform ballon wall over gluteal region for self STMs. PT-OP-R Modalities Start: 04/13/23 14:59 Freq: Status: Active Protocol: Document 05/06/23 08:04 SAK (Rec: 05/06/23 08:48 SAK [id number]) Hot Pack/Cold Pack Treatment Cold Pack Location left knee, lumbar Patient Position Hooklying Treatment Duration (minutes) 10 Patient Tolerance Good Comments 90/90 Spinal Traction Traction Treatment Lumbar Method Static Patient Position Hooklying Force Applied (Pounds) 55 Duration of Treatment (Minutes) 10 Heating Pad Applied No Traction Treatment Comment legs on bolster, ice after PT-OP-T Assessment and Plan Start: 04/13/23 14:59 Freq: Status: Active Protocol: Document 05/08/23 07:31 SP (Rec: 05/08/23 08:30 SP [id number]) Physical Therapy Assessment Goals Three Impairment weakness and lack of full left knee ROM Short Term Goal (STG) patient to be instructed in HEP to address above impairments which limit her ability to squat and do other ADL's STG Duration 05/15/23 [facility] Goal (LTG) Patient will be independent and compliant to HEP and demonstrate left knee ROM WNL and LE strength at least 4+/5 throughout LTG Duration 06/14/23 Two Impairment antalgic gait, step-to pattern on stairs Short Term Goal (STG) Improve patient gait to allow her to walk without a limp on level surfaces STG Duration 05/15/23 Roll Cutting Operator Goal (LTG) Patient will be able to walk without device without a limp on uneven surfaces without increase in pain including stairs with alternating pattern LTG Duration 06/14/23 One Impairment function-limiting left knee pain Impairment LEFS 28% Short Term Goal (STG) Improve LEFS score to at least 45% as measure of improved activity tolerance STG Duration 05/15/23 Roll Cutting Operator Goal (LTG) Improve LEFS score mariangel at least 60% as measure of improved activity tolerance LTG Duration 06/14/23 Assessment Summary Assessment Pt continues to experience back pain that radiates into R ant/lateral thigh but reports decrease post ther ex with focus on core facilitation ( LTR, segmental bridge, march, sciatic nerve glide), provided handouts. Cues for elongation , increase SAROJ improved gait decrease trunk wt shift initially noted walking back from waiting room arrival. Physical Therapy Plan Frequency and Duration Frequency of Treatment 2x/Week Duration of treatment (weeks) 8 Plan of Care Start Date 04/14/23 Plan of Care End Date 06/14/23 Therapeutic Interventions Therapeutic Interventions Gait Training,Home Exercise Program,Manual Therapy,Patient /Caregiver Education,Self-Care /Home Management,Soft Tissue Mobilization,Taping, Therapeutic Activities, Therapeutic Exercises Modalities Cold Pack/Ice Massage,Electric Stimulation,Hot Packs, Infrared Therapy,Ultrasound Next Visit Focus/Plan Next Note Type Treatment Note Next Visit Plan 1 more appt approved/sent message to schedule. modification of gluteal strengthening to standing with trunk supported on bed or table. Next tx: Consider QL stretch and strengthen, hip and pelvic mobiization, and progress core stab
--- NOTE | 2023-05-14 13:08 | PT.OTN ---
Current Diagnoses Pain in left knee (05/14/23) Difficulty in walking, not elsewhere classified (05/14/23) Weakness (05/14/23) Physical Therapy Treatment Note PT-OP-A Visit Information Start: 04/13/23 14:59 Freq: Status: Active Protocol: Document 05/14/23 11:16 SAK (Rec: 05/14/23 12:05 [facility] [id number]) Out-Patient Physical Therapy Visit Information Visit Information Visit Type Treatment Note Visit Note 5 min late Visit Start Time 11:20 Visit Stop Time 11:57 Total Visit Minutes 37 Visit Number 9 Evaluation Information Evaluation Date 04/14/23 PT-OP-B Current Condition Start: 04/13/23 14:59 Freq: Status: Active Protocol: Document 04/22/23 12:30 SAK (Rec: 04/22/23 13:18 [facility] [id number]) Current Condition History of Current Condition Onset Date November 2020 Current Complaints left knee pain History of Current Condition Working from home with ankles crossed for long day, couldn't walk, swelling of left knee. Went to ER; x-ray-fluid on her knee. Went to multiple doctors. Now with Dr. Bland, had knee aspirated 2 weeks ago. States left knee aki and clicks at times. PT order is for left knee pain, but of bigger concern to patient at this time is LBP and anterior hip/groin pain. Went to [place], iced and elevated. Onset of LBP with radicular symtpms right LE after doing a lot of yardwork March 26. Onset of LBP and now experiencing excruitiating pain. States she wakes up in excrutiating pain intermittantly, CT scan has been ordered for spine and abdomen to r/o anything more seriors. R LBP radiating down to calf. Prior Treatments and Tests 2014 herniated disc L4, has had injection, better for a long time. left knee aspirated 2 weeks ago. ER 2x and urgent care 1x past 10 days due to sciatica and hernia. Future Testing and Treatments Planned Has colonoscopy on Thursday. Awaiting approval for CT scan for LB and abdomen/groin Treatment Goals Patient/Caregiver Goals Decrease knee pain, improve walking Prior Functional Status Baseline Function- ADL's Independent Baseline Function- Mobility Independent Baseline Function- Gait no difficulty PT-OP-C Subjective Start: 04/13/23 14:59 Freq: Status: Active Protocol: Document 05/14/23 11:16 SAK (Rec: 05/14/23 12:05 [facility] [id number]) OP-PT Subjective Patient Comments Patient Comments Stretching really helps, likes manual traction more than mechanical traction. Hasn't tried going to the pool yet as recommended. MRI has been ordered. Reports she realizes she hurt her back when pulling stove away from the wall in the same week that her pain worsened. Also same week carried heavy suitcase, and did a lot of weeding. Sleeping a little better. PT-OP-G Mobility & Gait Start: 04/13/23 14:59 Freq: Status: Active Protocol: Document 04/14/23 12:30 SAK (Rec: 04/15/23 17:10 [facility] [id number]) OP Gait Assessment Gait Gait Assistance Required: Independent Assistive Devices Assistive Device None Orthotic/Prosthetic Devices or Brace: No Gait Deviations General Gait Pattern Antalgic,Decreased Stride Length,Festinating,Flexed Trunk Factors Limiting Gait Function Factors Limiting Gait Function Pain Stair Climbing Evaluation Devices Stair Climbing Assistive Devices Left Railing,Right Railing Technique/Endurance Stair Climbing Technique Step to Step PT-OP-H Neuro Start: 04/13/23 14:59 Freq: Status: Active Protocol: Document 04/14/23 12:30 SAK (Rec: 04/15/23 17:10 [facility] [id number]) Sensation Evaluation Gross Sensation Gross Sensation Right LE Impaired Sensation Description Paresthesia PT-OP-J Posture/Palpation/Skin Start: 04/13/23 14:59 Freq: Status: Active Protocol: Document 04/14/23 12:30 SAK (Rec: 04/15/23 17:10 [facility] [id number]) Posture Evaluation Position Standing Head/C-Spine Posture Forward Head T-Spine Posture Increased Kyphosis L-Spine Posture Increased Lordosis Pelvis Posture Anteriorly Tilted Weight Distribution Weight Shifted Left Foot Arch (L) Low Arch,(R) Low Arch Palpation Assessment Location left medial knee Palpation Location joint line Palpation Findings Edema,Tenderness PT-OP-K Range of Motion Start: 04/13/23 14:59 Freq: Status: Active Protocol: Document 04/14/23 12:30 SAK (Rec: 04/15/23 17:10 [facility] [id number]) Knee Goniometric Range of Motion Knee Left Knee ROM WFL No Flexion Active (degrees) 125 Flexion Passive (degrees) 132 Extension Active (degrees) 5 Extension Passive (degrees) 2 Hyper-Extension Active 5 Right Knee ROM WFL Yes Knee ROM Limitations Knee ROM Limitations Pain PT-OP-L Special Tests Start: 04/13/23 14:59 Freq: Status: Active Protocol: Document 04/14/23 12:30 [facility] (Rec: 04/15/23 17:10 [facility] [id number]) Special Tests Knee Special Tests Patellar Grind Test Test Results - Hardy Chondromalacia Test Results - Posterior Draw Test Results - Deirdre Test Test Results + Anterior Draw Test Results - Comments difficult to compare to right due to severity of right LE pain and guarding PT-OP-M Strength Start: 04/13/23 14:59 Freq: Status: Active Protocol: Document 04/14/23 12:30 [facility] (Rec: 04/15/23 17:10 [facility] [id number]) Hip Strength Hip Manual Muscle Testing Right Comments diffucult to assess due to severity of pain, generally has antigravity strength, minimal tolerance for resistance Knee Strength Knee Manual Muscle Testing Left Flexion (S2) 4 Good Extension (L3) 4 Good Comments limited by pain Right Flexion (S2) 5 Normal Extension (L3) 5 Normal Ankle/Foot Strength Ankle and Foot Manual Muscle Testing Left Dorsiflexion (L4) 4+ Good+ Plantarflexion (S1) 4+ Good+ Right Dorsiflexion (L4) 5 Normal Plantarflexion (S1) 5 Normal PT-OP-Q Treatments Start: 04/13/23 14:59 Freq: Status: Active Protocol: Document 05/14/23 11:16 [facility] (Rec: 05/14/23 12:05 [facility] [id number]) Therapeutic Exercises Supine Exercises SKTC Supine Exercise Name trialed for decrease LB, hip tension Side bilateral Reps/Minutes 10 SH x5 reps Joao stretch Equipment Used manual assistance Reps/Minutes 2x30 Comments good tolerance bridge Supine Exercise Name segmental bridge Reps/Minutes x5 reps Comments good feedback response with ed for TA PPT, seg lift/lower- painfree Sidelying Exercises QL stretch Sidelying Exercise Name pillows under side, arm overhead Reps/Minutes 2 min Manual Therapy Treatment Manual Traction Lumbar Details strap Body Position 90/90 Reps/Duration 10 min Self-Care/Home Management Treatment Education Patient Education Body Mechanics,Home Exercise Program,Pain Management, Posture PT-OP-R Modalities Start: 04/13/23 14:59 Freq: Status: Active Protocol: Document 05/06/23 08:04 [facility] (Rec: 05/06/23 08:48 SAK [id number]) Hot Pack/Cold Pack Treatment Cold Pack Location left knee, lumbar Patient Position Hooklying Treatment Duration (minutes) 10 Patient Tolerance Good Comments 90/90 Spinal Traction Traction Treatment Lumbar Method Static Patient Position Hooklying Force Applied (Pounds) 55 Duration of Treatment (Minutes) 10 Heating Pad Applied No Traction Treatment Comment legs on bolster, ice after PT-OP-T Assessment and Plan Start: 04/13/23 14:59 Freq: Status: Active Protocol: Document 05/14/23 11:16 [facility] (Rec: 05/14/23 12:05 [facility] [id number]) Physical Therapy Assessment Goals Three Impairment weakness and lack of full left knee ROM Short Term Goal (STG) patient to be instructed in HEP to address above impairments which limit her ability to squat and do other ADL's 05/14/23: GOAL MET STG Duration 05/15/23 Nursing Home Goal (LTG) Patient will be independent and compliant to HEP and demonstrate left knee ROM WNL and LE strength at least 4+/5 throughout LTG Duration 06/14/23 Two Impairment antalgic gait, step-to pattern on stairs Short Term Goal (STG) Improve patient gait to allow her to walk without a limp on level surfaces 05/14/23: mostly met STG Duration 05/15/23 Business Education Professor Goal (LTG) Patient will be able to walk without device without a limp on uneven surfaces without increase in pain including stairs with alternating pattern LTG Duration 06/14/23 One Impairment function-limiting left knee pain Impairment LEFS 28% Short Term Goal (STG) Improve LEFS score to at least 45% as measure of improved activity tolerance 05/14/23: goal progress STG Duration 05/15/23 Business Education Professor Goal (LTG) Improve LEFS score mariangel at least 60% as measure of improved activity tolerance LTG Duration 06/14/23 Assessment Summary Assessment Patient has made steady progress toward goals but we need to discharge today due to insurance limitations. Patient is independent with HEP and demonstrates good understanding of posture and body mechanics principles. She has an MRI scheduled. Aquatic exercise for decompression of her spine has been recommended but she hasn 't been able to follow through yet. She may benefit from further PT in the future when her insurance allows. Physical Therapy Plan Discharge Physical Therapy Discharge Reasons Plateau in Progress Discharge Comments insurance limitations Recommend aquatic exercise
== END 2023-07-01 11:12 | disposition home or self-care (01) ==
LOC: PHYS 11:15
PROVIDERS: Family Provider Family Medicine; PCP Family Medicine; Referring Provider Family Medicine; Visit Provider Family Medicine
DX: M25.562 Pain in left knee (principal); R26.2 Difficulty in walking, not elsewhere classified; R53.1 Weakness
CPT/HCPCS: 97012; 97110; 97116; 97140; 97162; 97530; 97535

== ENCOUNTER → 2023-05-20 12:21 | Outpatient (CLI) | payer OTHER, MEDICAID, SELFPAY ==
--- NOTE | 2023-05-20 12:22 | DI.MRI.S_ITS ---
PROCEDURE: MR LUMBAR SPINE WO CON INDICATIONS: LBP w/ radiculopathy TECHNIQUE: Noncontrast sagittal T1 spin echo and T2 fast echo, sagittal STIR, and T2 fast spin echo through the lumbar spine. In cases with scoliosis, additional coronal T2 fast spin echo may be performed. COMPARISON: None. FINDINGS: Image quality: Excellent. Alignment and Curvature: There is normal bony alignment. Bone Marrow: Marrow is of normal overall signal. No acute vertebral body compression fractures. Spinal Cord: Conus medullaris terminates at the L1 level. Visualized cord demonstrates normal signal and size. Paraspinous Soft Tissues: No paravertebral masses. T12-L1: No significant disc bulge. The foramina and central canal are patent. L1-L2: No significant disc bulge. The foramina and central canal are patent. L2-L3: Mild diffuse disc bulge causes mild bilateral foraminal stenosis. The central canal is patent. L3-L4: Diffuse disc bulge and facet hypertrophy cause moderate bilateral foraminal stenosis. There is hypertrophy of the ligamentum flavum. The central canal has moderate central canal stenosis. L4-L5: Diffuse disc bulge and facet hypertrophy cause moderate bilateral foraminal stenosis. There is hypertrophy of the ligamentum flavum. The central canal has moderate central canal stenosis. L5-S1: Diffuse disc bulge with right foraminal extrusion causes severe right foraminal stenosis. The left foramen has mild stenosis. The central canal is patent. IMPRESSION: 1. Multilevel lumbar spondylosis causing multilevel foraminal stenosis as detailed above. 2. Moderate central canal stenosis at L3-4. 3. Moderate central canal stenosis at L4-5. Dictated by: Pradeep Crook M.D. on 05/20/2023 at 15:33 Approved by: Pradeep Crook M.D. on 05/20/2023 at 15:38
== END ==
PROVIDERS: Family Provider Family Medicine; PCP Family Medicine; Referring Provider Family Medicine; Visit Provider Family Medicine
DX: M47.816 Spondylosis without myelopathy or radiculopathy, lumbar region (principal); M48.061 Spinal stenosis, lumbar region without neurogenic claudication; M54.41 Lumbago with sciatica, right side
CPT/HCPCS: 72148

== ENCOUNTER → 2023-08-17 09:31 | Outpatient (CLI) | payer OTHER, MEDICAID, SELFPAY ==
--- NOTE | 2023-08-17 09:33 | DI.RAD.S_ITS ---
PROCEDURE: XR KNEE LT 3V INDICATIONS: left knee djd TECHNIQUE: 3 views of the knee were acquired. COMPARISON: None. FINDINGS: Bones: No fractures or dislocations. The tricompartmental osteoarthritic changes with tricompartmental marginal spurring. Moderate medial joint space narrowing. Moderate lateral patellofemoral joint space narrowing. No suspicious bony lesions. Soft tissues: Small joint effusion. No suspicious soft tissue calcifications. IMPRESSION: Moderate osteoarthritic changes of the knee. No acute osseous abnormalities. Dictated by: Bry Dale M.D. on 08/17/2023 at 10:42 Approved by: Bry Dale M.D. on 08/17/2023 at 10:44
== END ==
PROVIDERS: Family Provider Family Medicine; PCP Family Medicine; Referring Provider Physical Medicine & Rehabilitation; Visit Provider Physical Medicine & Rehabilitation
DX: M17.12 Unilateral primary osteoarthritis, left knee (principal); M47.26 Other spondylosis with radiculopathy, lumbar region; M51.16 Intervertebral disc disorders with radiculopathy, lumbar region; G56.03 Carpal tunnel syndrome, bilateral upper limbs; E66.9 Obesity, unspecified
CPT/HCPCS: 73562; 99215

== ENCOUNTER 2023-09-06 17:12 | Emergency (ER) | payer OTHER, MEDICAID, SELFPAY ==
[2023-09-06 17:16] VITALS: BP 130/83; PULSE 88; RESP 18; TEMP 36.6; O2SAT 99; BMI 33.2
[2023-09-06] MEDS: cephALEXin 250 MG CAPSULE 1000 MG PO ×2 (18:29)
--- NOTE | 2023-09-07 12:45 | ED.SKABFB ---
HPI - Skin/Abscess/Foreign Bdy <Sarath Russell PA-C - Last Filed: 09/08/23 13:37> General Chief complaint: Skin/Abscess/Foreign Body Stated complaint: infection in R/arm Time Seen by Provider: 09/06/23 17:22 Source: patient Mode of arrival: Ambulatory Limitations: no limitations History of Present Illness HPI narrative: 63-year-old female presents to the ED with a wound to the right forearm. Patient states that she had some skin tags that she tried to pick of, following which her wounds appear to be worsening with redness and possible discharge. Patient denies fever, chills, nausea, vomiting. Patient also states that she tried to cover up the wound with a Band-Aid, and that an area covered by the Band-Aid was also inflamed. Related Data Home Medications Medication Instructions Recorded Confirmed fluticasone 250 mcg-salmeterol 50 1 ea inhalation BID 08/17/23 08/17/23 mcg/dose blistr powdr for inhalation (Advair Diskus) Previous Rx's Medication Instructions Recorded albuterol sulfate 2.5 mg/3 mL 2.5 mg (3 mL) inhalation Q4H PRN 12/22/22 (0.083 %) solution for nebulization shortness of breath or wheezing #75 mL albuterol sulfate 90 mcg/actuation 2 puff inhalation Q4-6H PRN 12/22/22 aerosol inhaler shortness of breath or wheezing #8.5 grams lisinopril 10 mg tablet 10 mg PO DAILY #90 tabs 01/27/23 nystatin 100,000 unit/mL oral 1 ml buccal DAILY #473 mL 03/03/23 suspension psyllium husk (with sugar) 3.4 1 tbsp PO BID #822 grams 04/17/23 gram/7 gram oral powder (Fiber (psyllium husk-sugar)) baclofen 20 mg tablet 20 mg PO TID PRN pain (scale score 04/27/23 4-6) #90 tabs montelukast 10 mg tablet 10 mg PO DAILY #90 tabs 06/23/23 phentermine 37.5 mg tablet 37.5 mg PO DAILY #30 tabs 07/22/23 cephalexin 500 mg capsule 500 mg PO TID 5 days #15 caps 09/06/23 Allergies Allergy/AdvReac Type Severity Reaction Status Date / Time iodine [IODINE] AdvReac Mild iv Verified 08/17/23 08:30 contrast - weird feeling Review of Systems <Sarath Russell PA-C - Last Filed: 09/08/23 13:37> Constitutional Constitutional: Denies chills, Denies fatigue, Denies fever(s), Denies frequent falls, Denies lethargy and Denies weakness Eyes Eyes: Denies change in vision, Denies eye discharge, Denies irritation and Denies loss of vision ENT Ears, Nose, Mouth, and Throat: Denies change in voice, Denies dizziness, Denies neck pain, Denies sore throat and Denies throat swelling Cardiovascular Cardiovascular: Denies chest pain, Denies irregular heart rhythm, Denies lightheadedness, Denies palpitations, Denies dyspnea, Denies dyspnea on exertion and Denies orthopnea Respiratory Respiratory: Denies cough, Denies dyspnea, Denies dyspnea on exertion and Denies wheezing Gastrointestinal Gastrointestinal: Denies abdominal pain, Denies change in bowel habits, Denies diarrhea, Denies nausea and Denies vomiting Musculoskeletal Musculoskeletal: Denies neck pain and Denies numbness Integumentary/Breasts Skin/Breast: Denies pruritus, Reports erythema, Denies rash and Reports wounds Neurologic Neurologic: Denies behavioral changes, Denies confusion, Denies dizziness, Denies frequent falls, Denies loss of vision, Denies numbness and Denies weakness Psychiatric Psychiatric: Denies anxiety, Denies behavioral changes, Denies confusion, Denies depression, Denies homicidal ideation and Denies suicidal ideation Endocrine Endocrine: Denies fatigue, Denies flushing and Denies palpitations Hematologic/Lymphatic Hematologic/Lymphatic: Denies easy bruising Allergic/Immunologic Allergic/Immunologic: Denies urticaria, Denies throat swelling and Denies wheezing Patient History <Sarath Russell PA-C - Last Filed: 09/08/23 13:37> Medical History (Updated 09/06/23 @ 18:10 by Sarath Russell PA-C) CTS (carpal tunnel syndrome) Depression Left knee DJD Facet arthropathy, lumbar Lumbar radiculopathy, chronic Obesity (BMI 30.0-34.9) Herniated disc Measles (~1963) Hyperthyroidism (~2007) Skin cancer (~2019) Parathyroid tumor Family history of colon cancer Benign essential HTN Melanoma (~2019) Asthma Surgical History Anesthesia History of partial hysterectomy (~2013) Status post hysterectomy Status post parathyroidectomy (~12/11/05) History of tonsillectomy Family History Father Hypertension Cancer Mother Hypertension Grandmother Hypertension Cancer Brother Cancer Sister Cancer Grandfather Cancer Grandmother Pneumonia Grandfather Cancer Social History household members: none Smoking Status: Never smoker alcohol intake: current Smoking Status: Never smoker alcohol intake frequency: holidays/special occasions only Substance Use Type: does not use Exam <Sarath Russell PA-C - Last Filed: 09/08/23 13:37> Narrative Exam Narrative: Const General:?cooperative, healthy appearing and comfortable HENMT Head:?normal to inspection Ears:?hearing grossly normal bilaterally Nose:?external nose normal Face and sinus:?normal facial exam and sinuses nontender Mouth:?oral mucosae normal Throat:?posterior oropharynx normal Eyes General:?appearance normal, both eyes and all related structures Neck Neck:?normal visual inspection and no lymphadenopathy noted Resp Effort & Inspection:?normal respiratory effort Auscultation:?clear to auscultation bilaterally Cardio Rate:?regular rate Rhythm:?regular rhythm Integumentary 2 small wounds on the right forearm that appear erythematous. No discharge visualized on exam. Neuro General:?patient alert, patient awake and patient oriented x3 Initial Vital Signs Initial Vital Signs: Vital Signs Temperature 97.9 F 09/06/23 17:16 Pulse Rate 88 09/06/23 17:16 Respiratory Rate 18 09/06/23 17:16 Blood Pressure 130/83 09/06/23 17:16 Pulse Oximetry 99 09/06/23 17:16 Oxygen Delivery Method Room Air 09/06/23 17:16 <Gabrielle Flaherty DO - Last Filed: 09/08/23 13:42> Initial Vital Signs Initial Vital Signs: Vital Signs Temperature 97.9 F 09/06/23 17:16 Pulse Rate 88 09/06/23 17:16 Respiratory Rate 18 09/06/23 17:16 Blood Pressure 130/83 09/06/23 17:16 Pulse Oximetry 99 09/06/23 17:16 Oxygen Delivery Method Room Air 09/06/23 17:16 Course <Sarath Russell PA-C - Last Filed: 09/08/23 13:37> Orders Ordered: Discontinued Medications Cephalexin HCl (Cephalexin 250 Mg Capsule) 1,000 mg PO NOW ONE Stop: 09/06/23 18:11 Last Admin: 09/06/23 18:29 Dose: 1,000 mg Documented By: DAISY Cephalexin HCl (Cephalexin 250 Mg Capsule) 1,000 mg PO NOW ONE Stop: 09/06/23 18:28 Last Admin: 09/06/23 18:29 Dose: 1,000 mg Documented By: DAISY <Gabrielle Flaherty DO - Last Filed: 09/08/23 13:42> Orders Ordered: Discontinued Medications Cephalexin HCl (Cephalexin 250 Mg Capsule) 1,000 mg PO NOW ONE Stop: 09/06/23 18:11 Last Admin: 09/06/23 18:29 Dose: 1,000 mg Documented By: DAISY Cephalexin HCl (Cephalexin 250 Mg Capsule) 1,000 mg PO NOW ONE Stop: 09/06/23 18:28 Last Admin: 09/06/23 18:29 Dose: 1,000 mg Documented By: DAISY MDM - Skin/Abscess/Foreign Bdy <Sarath Russell PA-C - Last Filed: 09/08/23 13:37> MDM Narrative Medical decision making narrative: 63-year-old female presents to the ED with a wound to the right forearm. Wounds appear to likely be infected, will treat with antibiotics for cellulitis. Wound care discussed with patient. ED return precautions were discussed with patient. Patient verbalized understanding. Medical records reviewed: Yes Discharge Plan Departure Patient Disposition: Home Clinical Impression: Cellulitis Qualifiers: Site of cellulitis: extremity Laterality: right Instructions: DI for Cellulitis -- Adult Activity Restrictions/Additional Instructions: You were evaluated in the ED today for some wounds on your arm. It appears that you might have a skin infection or cellulitis for which you are being prescribed antibiotics. Please take those as prescribed. Please follow-up with your PCP as soon as possible. Return to the ED if you have worsening symptoms of fever, vomiting. Prescriptions: New cephalexin 500 mg capsule 500 mg PO TID 5 Days Qty: 15 0RF No Action lisinopril 10 mg tablet 10 mg PO DAILY Qty: 90 3RF nystatin 100,000 unit/mL suspension 1 ml buccal DAILY Qty: 473 0RF Rx Instructions: administer 1/2 of dose in each side of the mouth montelukast 10 mg tablet 10 mg PO DAILY Qty: 90 3RF baclofen 20 mg tablet 20 mg PO TID PRN (Reason: pain (scale score 4-6)) Qty: 90 5RF phentermine 37.5 mg tablet 37.5 mg PO DAILY Qty: 30 2RF Rx Instructions: must administer 30 minutes before or 1-2 hours after breakfast Fiber (psyllium husk-sugar) 3.4 gram/7 gram powder 1 tbsp PO BID Qty: 822 0RF albuterol sulfate 90 mcg/actuation HFA aerosol inhaler 2 puff inhalation Q4-6H PRN (Reason: shortness of breath or wheezing) Qty: 8.5 2RF albuterol sulfate 2.5 mg /3 mL (0.083 %) solution for nebulization 2.5 mg inhalation Q4H PRN (Reason: shortness of breath or wheezing) Qty: 75 2RF fluticasone propion-salmeterol [Advair Diskus] 250-50 mcg/dose blister with device 1 ea inhalation BID Referrals: Garett Bland DO [Primary Care Provider] - Stand Alone Forms: Patient Portal/API ED Sign-out <Gabrielle Flaherty DO - Last Filed: 09/08/23 13:42> Cosign ED Attending Kemi Attestation: I was available for consultation.
== END 2023-09-06 18:34 | disposition home or self-care (01) ==
PROVIDERS: Emergency Provider Student in an Organized Health Care Education/Training Program; Family Provider Family Medicine; PCP Family Medicine
DX: L03.113 Cellulitis of right upper limb (principal)
CPT/HCPCS: 99283

== ENCOUNTER → 2023-09-18 10:55 | Outpatient (CLI) | payer OTHER, MEDICAID, SELFPAY ==
[2023-09-18 11:49] LABS: Add Manual Diff / Slide Review NO; Basophils Absolute Auto 0 /uL (0-100); Basophils Percent Auto 0.3 % (0-2); Eosinophils Absolute Auto 100 /uL (0-450); Eosinophils Percent Auto 0.7 % (2-4); Hematocrit 38.2 % (36-46); Lymphocytes Absolute Auto 900 /uL (1100-4500); Lymphocytes Percent Auto 7.8 % (25-40); Mean Corpuscular Hemoglobin 30.9 PG (26-34); Mean Corpuscular Volume 90.7 fL (80-100); Monocytes Absolute Auto 700 /uL (0-900); Monocytes Percent Auto 6.2 % (3-14); Neutrophils Absolute Auto 9700 /uL (1500-7000); Platelet Count 212 X10^3/uL (150-400); Red Blood Cell Count 4.21 X10^6/uL (4.0-5.2); Red Cell Distribution Width 12.8 % (11.6-14.8); White Blood Cell Count 11.4 X10^3/uL (4.5-11.0)
[2023-09-18 12:10] LABS: Alanine Aminotransferase 43 IU/L (<35); Albumin 4.3 g/dL (3.5-5.0); Albumin Globulin Ratio 1.5 (1.0-2.8); Alkaline Phosphatase 87 U/L (38-126); Aspartate Aminotransferase 41 IU/L (14-36); BUN Creatinine Ratio 27.9 (6-22); Bilirubin Total 0.7 mg/dL (0.2-1.3); Blood Urea Nitrogen 19 mg/dL (7-17); Calcium 9.4 mg/dL (8.4-10.2); Carbon Dioxide 29 mmol/L (22-32); Chloride 100 mmol/L (98-107); Estimated Glomerular Filt Rate > 60 mL/min (>60); Globulin 2.8 g/dL (1.7-4.1); Glucose 111 mg/dL (80-110); HEMOLYSIS < 15 (0-50); Lipase 104 U/L (23-300); Potassium 4.2 mmol/L (3.4-5.1); Sodium 136 mmol/L (137-145); Total Protein 7.1 g/dL (6.3-8.2)
== END ==
PROVIDERS: Family Provider Family Medicine; PCP Family Medicine; Referring Provider Family Medicine; Visit Provider Family Medicine
DX: R11.10 Vomiting, unspecified (principal); R10.13 Epigastric pain
CPT/HCPCS: 36415; 80053; 83690; 85025

== ENCOUNTER → 2023-09-21 11:17 | Outpatient (CLI) | payer OTHER, MEDICAID, SELFPAY ==
--- NOTE | 2023-09-21 11:19 | DI.US.S_ITS ---
PROCEDURE: US ABDOMEN LIMITED INDICATIONS: EPIGASTRIC PAIN, NAUSEA/VOMITING TECHNIQUE: Real-time scanning was performed of the abdominal and retroperitoneal organs, with image documentation. COMPARISON: None. FINDINGS: Liver: Liver is normal in size and homogeneous in echotexture. Main portal vein is widely patent. Adjacent to the main portal vein, there is a blood vessel which demonstrates hepatofugal flow. Gallbladder: No gallstones. No wall thickening. No pericholecystic edema. Negative sonographic Xiao's sign. Biliary ducts: Intrahepatic bile ducts are non-dilated. Extrahepatic bile duct caliber measures 6 mm. Normal is 6-7 mm or less in diameter, or 10 mm or less post-cholecystectomy. Pancreas: Visualized portions of the pancreas are sonographically normal. IMPRESSION: Normal gallbladder. Patent portal vein with appropriate direction of flow. Adjacent to the main portal vein, there is a blood vessel which demonstrates hepatofugal flow. Unclear origin of this vessel, but likely of minimal clinical significance at this time. Dictated by: Pierre Collado M.D. on 09/21/2023 at 14:45 Approved by: Pierre Collado M.D. on 09/21/2023 at 14:48
== END ==
LOC: US 11:18
PROVIDERS: Family Provider Family Medicine; PCP Family Medicine; Referring Provider Family Medicine; Visit Provider Family Medicine
DX: R11.10 Vomiting, unspecified (principal); R10.13 Epigastric pain
CPT/HCPCS: 76705

== ENCOUNTER → 2023-10-06 14:03 | Outpatient (CLI) | payer OTHER, MEDICAID, SELFPAY ==
--- NOTE | 2023-10-06 14:05 | DI.CT.S_ITS ---
PROCEDURE: CT CHEST ABD PEL W CON INDICATIONS: Abdominal pain and history of melanoma TECHNIQUE: After the administration of intravenous contrast, 5 mm thick sections acquired from the lung apices to the symphysis. 5 mm coronal and sagittal reformats were performed, with additional 7 mm MIP reformats through the lungs. For radiation dose reduction, the following was used: automated exposure control, adjustment of mA and/or kV according to patient size. COMPARISON: [facility], CT, KIDNEY/ URETER/BLADDER, 02/16/2017, 23:29. [facility], CT, CT ABDOMEN PELVIS WO CON, 03/15/2019, 8:12. [facility], CT, CT ABDOMEN PELVIS WO/W CON, 08/23/2021, 10:03. [facility], CT, CT ABDOMEN PELVIS W CON, 04/25/2023, 10:45. FINDINGS: Image quality: Excellent. CHEST: Lower Neck: No enlarged lymph nodes. Thyroid: 1 cm focus of low attenuation is present within the left thyroid lobe. No priors. Axillae: No enlarged lymph nodes. Chest Wall: Unremarkable. Lungs and Pleura: 5 mm right upper lobe partially pleural based nodule series 3, image 172. No priors for comparison. Partial ground-glass appearing in the left upper lobe nodule series 3, image 120 measuring approximately 1.0 x 1.0 cm. Heart: Heart size is normal. No pericardial effusion. Thoracic Vessels: The aorta and pulmonary arteries demonstrate normal size. Mediastinum and [place]it[place]: No enlarged lymph nodes. Esophagus: No wall thickening. No hiatal hernia. ABDOMEN: Liver: No solid mass. Gallbladder: No radiopaque gallstones or wall thickening. Biliary ducts: No biliary dilation. Pancreas: No ductal dilation. Spleen: Size is within normal limits. Adrenal Glands: No adrenal nodules. Kidneys and Ureters: No hydronephrosis. No solid mass. No complex renal cystic lesion which requires follow up. Bilateral simple renal cysts as well as nonobstructing calculi are present. The largest calcification measures 4 mm in the inferior left renal pole. Multiple calcifications have a vault since 2017 on prior exams. Stomach and Bowel: Normal colonic caliber, without significant wall thickening. Peritoneum: No abnormal intraperitoneal fluid. No free air. Ventral Wall: No hernia. Abdominal Nodes: No retroperitoneal or mesenteric adenopathy by size criteria. Vessels: Aorta and inferior vena cava are normal in size. PELVIS: Pelvic Organs: Unremarkable. Bladder: Unremarkable. Pelvic Nodes: No enlarged lymph nodes. Miscellaneous: No inguinal hernias are seen. Bones: Unremarkable. IMPRESSION: 5 mm partially pleural based right upper lobe nodule as well as 1.0 cm partial ground-glass nodule in the left upper lobe. Recommend interval follow-up as below for ground-glass nodule with attention to pleural based nodule at that time. Fleischner Society criteria for SOLID lung nodule followup. Nodule size (mm)Low-risk patientHigh-risk patient<6 (single or multiple)No routine followup.Optional CT at 12 months. 6-8 (single or multiple)CT at 6-12 months, then optional CT at 18-24 mo.CT at 6-12 months, then CT at 18-24 months. >8 (single)CT, PET-CT, or biopsy at 3 months. Same as for low-risk pts. >8 (multiple)CT at 3-6 months, then optional CT at 18-24 mo.CT at 3-6 months, then CT at 18-24 months. Fleischner Society criteria for SUB-SOLID lung nodule followup. Solitary pure ground-glass nodules<6 mm (ground glass or part solid)No followup needed. 6 mm or larger (ground glass)CT at 6-12 months to confirm persistence, then CT every 2 years until 5 years.6 mm or larger (part solid)CT at 3-6 months to confirm persistence, then annual CT until 5 years if unchanged and solid component remains <6 mm. Multiple sub-solid nodules<6 mmCT at 3-6 months, then CT consider at 2 & 4 years for high risk patients. [address] at 3-6 months. Subsequent management based on most suspicious lesions. Recommendations do not apply to lung cancer screening, patients with immunosuppression, or patients with known primary cancer. Dictated by: Deborah Honeycutt M.D. on 10/06/2023 at 17:31 Approved by: Deborah Honeycutt M.D. on 10/06/2023 at 17:37
== END ==
LOC: CT 14:04
PROVIDERS: Family Provider Family Medicine; PCP Family Medicine; Referring Provider Surgery; Visit Provider Surgery
DX: N28.1 Cyst of kidney, acquired (principal); N20.0 Calculus of kidney; R10.9 Unspecified abdominal pain; R91.8 Other nonspecific abnormal finding of lung field
CPT/HCPCS: 71260; 74177

== ENCOUNTER → 2023-10-15 12:19 | Outpatient (CLI) | payer OTHER, SELFPAY ==
[2023-10-15 13:44] LABS: BUN Creatinine Ratio 16.7 (6-22); Blood Urea Nitrogen 12 mg/dL (7-17); Calcium 9.3 mg/dL (8.4-10.2); Carbon Dioxide 29 mmol/L (22-32); Chloride 93 mmol/L (98-107); Estimated Glomerular Filt Rate > 60 mL/min (>60); Glucose 104 mg/dL (80-110); HEMOLYSIS < 15 (0-50); Potassium 3.9 mmol/L (3.4-5.1); Sodium 132 mmol/L (137-145)
[2023-10-15 14:10] LABS: Hemoglobin A1C% w Est Avg Glu 5.4 % (4.0-6.0)
[2023-10-15 14:12] LABS: TSH w/ Reflex to FT4 1.87 uIU/mL (0.47-4.68)
[2023-10-15 14:28] LABS: Vitamin B12 502 pg/mL (239-931)
[2023-10-15 15:43] LABS: Vitamin D 25 Hydroxy (D3) 28.8 ng/mL (30.0-100.0)
== END ==
LOC: LAB 12:20
PROVIDERS: Family Provider Family Medicine; PCP Family Medicine; Referring Provider Physician Assistant; Visit Provider Physician Assistant
DX: E53.8 Deficiency of other specified B group vitamins (principal); E55.9 Vitamin D deficiency, unspecified; R20.8 Other disturbances of skin sensation; R73.01 Impaired fasting glucose; R53.81 Other malaise; Z86.39 Personal history of other endocrine, nutritional and metabolic disease
CPT/HCPCS: 36415; 80048; 82306; 82607; 83036; 84443

== ENCOUNTER 2023-10-29 12:55 | Day surgery (SDC) | payer OTHER, SELFPAY ==
--- NOTE | 2023-10-29 | PATH_ITS ---
[facility] Accession Number: [id number] No. of containers..01 Tissue . 01 Material submitted: . stomach - ANTRUM . 01 Diagnosis: ANTRUM, BIOPSY: Gastric mucosa with minimal chronic nonspecific inflammation. No Helicobacter pylori organisms identified on immunohistochemical evaluation. No intestinal metaplasia, dysplasia, or malignancy. [facility] 11/03/2023 1316 Local . 01 Electronically signed: . Alison Moser MD, Pathologist NPI- [id number] . 01 Gross description: . ANTRUM: Received in formalin is 1 fragment(s) of esteban, soft tissue measuring 0.3 x 0.1 x 0.1 cm submitted entirely in 1 cassette(s) /AAY 10/30/2023 0450 Local . 01 Microscopic: . An immunohistochemical stain was performed to evaluate for Helicobacter organisms and is negative. The control stain showed appropriate reactivity. . . * This test was developed and its performance characteristics determined by [facility]. It has not been cleared or approved by the U.S. Food and Drug Administration. The FDA has determined that such clearance or approval is not necessary. This test is used for clinical purposes. It should not be regarded as investigational or for research. . 01 Pathologist provided ICD-10: K29.70 . 01 CPT . 052958, B60071 Specimen Comment: A courtesy copy of this report has been sent to [phone] Performed at: 01 [facility] [address] [place] [address], [place], [place] [id number] MD Jimmie Rider MD Phone: [phone]
[2023-10-29 13:22] VITALS: BP 124/83; PULSE 89; RESP 16; TEMP 36.4; O2SAT 96
--- NOTE | 2023-10-29 13:46 | P.HP_ITS ---
History of Present Illness History of Present Illness Date Patient Seen: 10/29/23 Time Patient Seen: 13:46 Chief complaint: EGD w/poss bx Narrative: Mouna is a 63-year-old woman who presents with epigastric abdominal pain and intractable nausea and vomiting. See office note from August for details. She will be getting her PET scan tomorrow. [facility] Medical History (Updated 10/28/23 @ 17:11 by Garett Bland DO) Venous insufficiency of both lower extremities CTS (carpal tunnel syndrome) Depression Left knee DJD Facet arthropathy, lumbar Lumbar radiculopathy, chronic Obesity (BMI 30.0-34.9) Herniated disc Measles (~1962) Hyperthyroidism (~2007) Skin cancer (~2019) Parathyroid tumor Family history of colon cancer Benign essential HTN Melanoma (~2019) Asthma Surgical History Anesthesia History of partial hysterectomy (~2013) Status post hysterectomy Status post parathyroidectomy (~12/11/05) History of tonsillectomy Family History Father Hypertension Cancer Mother Hypertension Grandmother Hypertension Cancer Brother Cancer Sister Cancer Grandfather Cancer Grandmother Pneumonia Grandfather Cancer Social History household members: none Smoking Status: Never smoker alcohol intake: current Meds Home Medications and Allergies Home Medications Medication Instructions Recorded Confirmed Type albuterol sulfate 2.5 mg/3 mL 2.5 mg (3 mL) inhalation Q4H PRN 12/22/22 10/29/23 Rx (0.083 %) solution for nebulization shortness of breath or wheezing #75 mL albuterol sulfate 90 mcg/actuation 2 puff inhalation Q4-6H PRN 12/22/22 10/29/23 Rx aerosol inhaler shortness of breath or wheezing #8.5 grams lisinopril 10 mg tablet 10 mg PO DAILY #90 tabs 01/27/23 10/29/23 Rx nystatin 100,000 unit/mL oral 1 ml buccal DAILY #473 mL 03/03/23 10/28/23 Rx suspension psyllium husk (with sugar) 3.4 1 tbsp PO BID #822 grams 08/11/23 02/21/24 Rx gram/7 gram oral powder (Fiber (psyllium husk-sugar)) montelukast 10 mg tablet 10 mg PO DAILY #90 tabs 06/23/23 10/29/23 Rx fluticasone 250 mcg-salmeterol 50 1 ea inhalation BID 08/17/23 10/29/23 History mcg/dose blistr powdr for inhalation (Advair Diskus) ondansetron 4 mg disintegrating 4 mg PO Q6-8H PRN nausea and 09/18/23 10/29/23 Rx tablet vomiting #30 tabs chlorthalidone 25 mg tablet 12.5 mg (1/2 x 25 mg) PO DAILY 09/29/23 10/29/23 Rx blood pressure #90 tabs phentermine 37.5 mg tablet 37.5 mg PO DAILY #30 tabs 09/29/23 10/29/23 Rx lorazepam 1 mg tablet 1 mg PO DAILY PRN anxiety #30 tabs 10/15/23 10/29/23 Rx cholecalciferol (vitamin D3) 25 25 mcg PO DAILY 10/21/23 10/29/23 History mcg (1,000 unit) capsule Allergies Allergy/AdvReac Type Severity Reaction Status Date / Time No Known Drug Allergies Allergy Verified 10/29/23 13:14 Exam Vital Signs (past 8 hours): - 10/29/23 13:22 Temperature 97.6 F Pulse Rate 89 Respiratory Rate 16 Blood Pressure 124/83 Pulse Oximetry 96 Oxygen Delivery Method Room Air Oxygen Delivery Method Room Air Const Orientation: alert and awake Resp Effort & Inspection: normal respiratory effort Assessment & Plan Assessment and plan (1) Abdominal pain: Qualifiers: Abdominal location: epigastric Qualified Code(s): R10.13 - Epigastric pain Status: Acute Plan We reviewed the risks and benefits EGD for diagnosis and she would like to proceed.
[2023-10-29] MEDS: LACTATED RINGERS 1,000 ML 42 ML IV (13:48)
--- NOTE | 2023-10-29 14:16 | PM.OP.EGD ---
Operative Date/Time/Diagnoses Date of procedure: 10/29/23 Time of procedure: 14:16 Pre-op diagnosis: Abdominal pain Post-op diagnosis: same Procedure & Clinicians Study performed: Esophagogastroduodenoscopy Same procedure as scheduled: Yes Surgeon: Deepak Mercedes Procedure Notes Procedure in detail: Surgeon: Deepak Mercedes MD Anesthesia: Nii Brito MD A timeout was performed. A bite blocked was placed. The patient was positioned in the left lateral decubitus position. Anesthesia was administered. The endoscope was inserted through the bite block and passed through the esophagus and stomach and into the duodenum. The duodenal mucosa appeared normal. The scope was withdrawn into the duodenal bulb and no other abnormalities were seen. The scope was withdrawn into the stomach. There was mild antritis and random biopsies were taken with a cold forceps biopsy. The rest of the stomach was normal. The scope was retroflexed and no hiatal hernia was seen. The scope was withdrawn into the esophagus and no abnormalities were seen. The remainder of the esophagus was normal. The scope was withdrawn. The patient was awakened and brought to recovery. Sedation time: 10 minutes Findings: Mild antritis Post-procedure Disposition: PACU
[2023-10-29 14:18] VITALS: BP 123/83; PULSE 83; RESP 15; TEMP 36.2; O2SAT 97
[2023-10-29 14:24] VITALS: BP 126/81; PULSE 86; RESP 16; O2SAT 97
[2023-10-29 14:30] VITALS: BP 122/83; PULSE 81; RESP 16; TEMP 36.4; O2SAT 99
== END 2023-10-29 14:42 | disposition home or self-care (01) ==
PROVIDERS: Family Provider Family Medicine; PCP Family Medicine; Referring Provider Surgery; Visit Provider Surgery
PROC: 0DJ08ZZ Inspection of Upper Intestinal Tract, Via Natural or Artificial Opening Endoscopic (ICD-10-PCS; CPT 43235; principal; 2023-10-29 13:45)
DX: K29.50 Unspecified chronic gastritis without bleeding (principal)
CPT/HCPCS: 43239; J2704

== ENCOUNTER → 2024-02-06 12:09 | Outpatient (CLI) | payer OTHER, SELFPAY ==
--- NOTE | 2024-02-06 12:11 | DI.RAD.S_ITS ---
PROCEDURE: XR ELBOW LT MIN 3V INDICATIONS: Left elbow injury s/p FOOSH TECHNIQUE: 3 views of the elbow were acquired. COMPARISON: None. FINDINGS: Bones: No fractures or dislocations. No suspicious bony lesions. Soft tissues: No elbow joint effusion. No suspicious soft tissue calcifications. IMPRESSION: No acute bony abnormality or significant joint effusion. Dictated by: Usman Benavidez M.D. on 02/06/2024 at 11:51 Approved by: Usman Benavidez M.D. on 02/06/2024 at 11:55
--- NOTE | 2024-02-06 12:11 | DI.RAD.S_ITS ---
PROCEDURE: XR WRIST LT MIN 3V INDICATIONS: Left wrist injury s/p FOOSH TECHNIQUE: 4 views of the wrist were acquired. COMPARISON: [facility], SHANNAN, XR WRIST LT MIN 3V, 02/17/2023, 20:48. FINDINGS: Bones: No fractures or dislocations. No suspicious bony lesions. Soft tissues: No suspicious soft tissue calcifications. IMPRESSION: No acute bony abnormality. If there is concern for occult scaphoid fracture recommend conservative care with follow-up reimaging in [address] Dictated by: Usman Benavidez M.D. on 02/06/2024 at 11:48 Approved by: Usman Benavidez M.D. on 02/06/2024 at 11:51
== END ==
PROVIDERS: Family Provider Family Medicine; PCP Family Medicine; Referring Provider Registered Nurse; Visit Provider Registered Nurse
DX: M25.522 Pain in left elbow (principal); M25.532 Pain in left wrist
CPT/HCPCS: 73080; 73110

== ENCOUNTER → 2024-02-19 12:09 | Outpatient (CLI) | payer OTHER, SELFPAY ==
[2024-02-19 13:34] LABS: Influenza A - CEPHEID Flu A NEGATIVE (NEGATIVE); Influenza B - CEPHEID Flu B NEGATIVE (NEGATIVE); Respiratory Syncytial Virus Negative (Negative)
[2024-02-19 14:07] LABS: COVID-19 CEPHEID 4-PLEX PCR POSITIVE (Negative)
== END ==
PROVIDERS: Family Provider Family Medicine; PCP Family Medicine; Visit Provider Nurse Practitioner Family
DX: J02.9 Acute pharyngitis, unspecified (principal); R05.1 Acute cough
CPT/HCPCS: 0241U; 87070

== ENCOUNTER 2024-05-11 11:40 | Emergency (ER) | payer OTHER, SELFPAY ==
[2024-05-11] VITALS (75 sets, daily range): BP systolic 91–125; BP diastolic 58–101; PULSE 83–101; RESP 15–37; TEMP 36.2–37.2; O2SAT 93–99; BMI 32.1
--- NOTE | 2024-05-11 11:50 | EKG_ITS ---
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
--- NOTE | 2024-05-11 11:50 | DI.RAD.S_ITS ---
PROCEDURE: XR CHEST 1V INDICATIONS: chest pain TECHNIQUE: One view of the chest was acquired. COMPARISON: [facility], CR, XR CHEST 1V, 04/05/2023, 16:04. [facility], CR, XR CHEST 1V, 12/22/2022, 16:17. FINDINGS: Surgical changes and devices: None. Lungs and pleura: Hazy bibasilar opacities. No pleural effusions or pneumothorax. Mediastinum: Mediastinal contours appear normal. Heart size is normal. Bones and chest wall: No suspicious bony lesions. Overlying soft tissues appear unremarkable. IMPRESSION: Hazy bibasilar opacities, probably atelectasis, less likely multifocal pneumonia. Dictated by: Pierre Collado M.D. on 05/11/2024 at 13:02 Approved by: Pierre Collado M.D. on 05/11/2024 at 13:04
[2024-05-11] MEDS: ASPIRIN 81 MG CHEW TAB 324 MG PO (11:53)
--- NOTE | 2024-05-11 11:55 | EKG_ITS ---
[place] [id number] [place] [id number] Test Date: 2024-05-11 Pat Name: Mouna Darby Department: [facility] Room: Gender: Female Proof Operator: manpreet : 1960 Requested By: Order Number: [id number] Reading MD: Ayaz Clement MD Measurements Intervals Hydro Rate: 87 P: 51 CA: 176 QRS: 36 QRSD: 70 T: 38 QT: 352 QTc: 423 Interpretive Statements Normal sinus rhythm Cannot rule out Anterior infarct , age undetermined Electronically Signed On 05-12-2024 7:36:03 PDT by Ayaz Clement MD
--- NOTE | 2024-05-11 11:58 | ED_ITS ---
HPI - Chest Pain General Chief Complaint: Chest Pain Stated Complaint: Esophagus Pain like heartburn Time Seen by Provider: 05/11/24 11:55 Source: patient Mode of arrival: Ambulatory Limitations: no limitations History of Present Illness HPI narrative: 63-year-old female has had prior cardiac catheterization 10 years ago, no known CAD, no coronary interventions known, has risk factors of hypertension, denies cardiac risk factors of diabetes and hyperlipidemia and smoking and family history. She has had intermittent chest discomfort since 4 this morning, left parasternal, not worse with inspiration or movements. No nausea or vomiting, no diaphoresis. It does not seem to radiate to her scapula or left arm or right arm or legs. Related Data Home Medications Medication Instructions Recorded Confirmed cholecalciferol (vitamin D3) 25 25 mcg PO DAILY 10/21/23 02/19/24 mcg (1,000 unit) capsule Previous Rx's Medication Instructions Recorded albuterol sulfate 2.5 mg/3 mL 2.5 mg (3 mL) inhalation Q4H PRN 12/22/22 (0.083 %) solution for nebulization shortness of breath or wheezing #75 mL albuterol sulfate 90 mcg/actuation 2 puff inhalation Q4-6H PRN 12/22/22 aerosol inhaler shortness of breath or wheezing #8.5 grams nystatin 100,000 unit/mL oral 1 ml buccal DAILY #473 mL 03/03/23 suspension psyllium husk (with sugar) 3.4 1 tbsp PO BID #822 grams 04/17/23 gram/7 gram oral powder (Fiber (psyllium husk-sugar)) montelukast 10 mg tablet 10 mg PO DAILY #90 tabs 06/23/23 ondansetron 4 mg disintegrating 4 mg PO Q6-8H PRN nausea and 09/18/23 tablet vomiting #30 tabs lorazepam 1 mg tablet 1 mg PO DAILY PRN anxiety #30 tabs 10/15/23 fluticasone 250 mcg-salmeterol 50 1 - 2 ea inhalation BID #60 ea 02/02/24 mcg/dose blistr powdr for inhalation ipratropium 0.5 mg-albuterol 3 mg 3 ml inhalation Q6-8H PRN 02/19/24 (2.5 mg base)/3 mL nebulization shortness of breath #90 mL soln chlorthalidone 25 mg tablet 12.5 mg (1/2 x 25 mg) PO DAILY 03/01/24 blood pressure #90 tabs lisinopril 10 mg tablet 10 mg PO DAILY blood pressure #90 03/01/24 tabs phentermine 37.5 mg tablet 37.5 mg PO DAILY #30 tabs 03/30/24 indomethacin 50 mg capsule 50 mg PO TID #30 caps 05/11/24 omeprazole 20 mg capsule,delayed 20 mg PO DAILY upper abdominal 05/11/24 release pain 30 days #30 caps Allergies Allergy/AdvReac Type Severity Reaction Status Date / Time No Known Drug Allergies Allergy Verified 05/11/24 11:45 Review of Systems Review of Systems Narrative: see HPI Patient History Medical History Venous insufficiency of both lower extremities CTS (carpal tunnel syndrome) Depression Left knee DJD Facet arthropathy, lumbar Lumbar radiculopathy, chronic Obesity (BMI 30.0-34.9) Herniated disc Measles (~1962) Hyperthyroidism (~2007) Skin cancer (~2019) Parathyroid tumor Family history of colon cancer Benign essential HTN Melanoma (~2019) Asthma Surgical History Anesthesia History of partial hysterectomy (~2013) Status post hysterectomy Status post parathyroidectomy (~12/11/05) History of tonsillectomy Family History Father Hypertension Cancer Mother Hypertension Grandmother Hypertension Cancer Brother Cancer Sister Cancer Grandfather Cancer Grandmother Pneumonia Grandfather Cancer Social History household members: none Smoking Status: Never smoker alcohol intake: current Smoking Status: Never smoker alcohol intake frequency: holidays/special occasions only Substance Use Type: marijuana Exam Narrative Exam Narrative: GENERAL: Well-developed patient, in mild distress. HEAD: Atraumatic. Normocephalic. EYES: Pupils equal round and reactive. Extraocular motions intact. No scleral icterus. No injection or drainage. ENT: Nose without bleeding, purulent drainage. Throat without erythema, tonsillar hypertrophy or exudate. Airway patent. NECK: Trachea midline. Non tender CARDIOVASCULAR: Regular rate and rhythm without murmurs, gallops, or rubs. RESPIRATORY: Clear to auscultation. Breath sounds equal bilaterally. No wheezes, rales, or rhonchi. GASTROINTESTINAL: Abdomen soft, non-tender, nondistended. EXTREMITIES: No edema or joint tenderness. BACK: Nontender without deformity or crepitance. No flank tenderness. NEURO: AOx3. Grossly nonfocal neuro exam SKIN: No rash or erythema of visible areas Initial Vital Signs Initial Vital Signs: Vital Signs Temperature 97.1 F L 05/11/24 11:45 Pulse Rate 100 H 05/11/24 11:45 Respiratory Rate 20 05/11/24 11:45 Blood Pressure 116/78 05/11/24 11:45 Pulse Oximetry 98 05/11/24 11:45 Oxygen Delivery Method Room Air 05/11/24 11:45 Course Orders Ordered: ED Orders 05/11/24 11:49 Complete Blood Count AUTO DIFF Stat Comprehensive Metabolic Panel Stat Lipase Stat Magnesium Stat NT-proBNP (BNP-Adult 18+) Stat PTT Partial Thromboplastin Sandro Stat Prothrombin Time INR Stat Troponin & CK Cardiac Panel Stat 05/11/24 11:50 XR chest 1V Stat EKG-12 Lead Stat 05/11/24 11:55 EKG-12 Lead Stat 05/11/24 13:09 CT angio chest abdomen pelvis Stat 05/11/24 13:50 Blood Culture Stat Troponin I Stat 05/11/24 14:11 EKG-12 Lead Stat 05/11/24 15:17 EKG-12 Lead Stat 05/12/24 05:00 Hemoglobin and Hematocrit DAILY Platelet Count DAILY 05/13/24 05:00 Hemoglobin and Hematocrit DAILY Platelet Count DAILY Sodium Chloride (Normal Saline 0.9%) 1,000 mls @ 150 mls/hr IV CONT SCOTT Last Infusion: 05/11/24 12:20 Dose: Infused Documented By: Admin: 05/11/24 12:19 Dose: 150 mls/hr Documented By: BRAYDON Nitroglycerin (Nitroglycerin) 50 mg in 250 mls @ 1.5 mls/hr IV TITRATE SCOTT; Protocol Last Titration: 05/11/24 17:19 Dose: Infused Documented By: Titration: 05/11/24 15:53 Dose: 2.5 mcg/min, 0.75 mls/hr Documented By: Admin: 05/11/24 15:37 Dose: 5 mcg/min, 1.5 mls/hr Documented By: BRAYDON Heparin Sodium/Dextrose (Heparin Drip) 25,000 unit in 500 mls @ 22.317 mls/hr IV CONT SCOTT; Protocol Last Titration: 05/11/24 17:19 Dose: Infused Documented By: BRAYDON Co-signed By: FLETCHER Titration: 05/11/24 12:41 Dose: 11.1 units/kg/hr, 20.643 mls/hr Documented By: BRAYDON Co-signed By: RENATO Admin: 05/11/24 12:36 Dose: 12 units/kg/hr, 22.317 mls/hr Documented By: BRAYDON Co-signed By: RENATO Nitroglycerin (Nitroglycerin 0.4 Mg Sl Tab) 0.4 mg SL [id number] PRN PRN Reason: Chest Pain Last Admin: 05/11/24 12:21 Dose: 0.4 mg Documented By: Admin: 05/11/24 12:15 Dose: 0.4 mg Documented By: BRAYDON Discontinued Medications Aspirin (Aspirin 81 Mg Chew Tab) 324 mg PO NOW ONE Stop: 05/11/24 11:51 Last Admin: 05/11/24 11:53 Dose: 324 mg Documented By: FLETCHER Aspirin (Aspirin 81 Mg Chew Tab) 324 mg PO NOW ONE Stop: 05/11/24 11:56 Last Admin: 05/11/24 12:04 Dose: Not Given Documented By: FLETCHER Azithromycin (Azithromycin 250 Mg Tablet) 500 mg PO NOW ONE Stop: 05/11/24 13:12 Last Admin: 05/11/24 14:08 Dose: 500 mg Documented By: RENATO Heparin Sodium (Porcine) (Heparin 5,000 Unit/Ml Vial) 5,500 unit 60 unit/kg (5500 unit) IV NOW ONE Stop: 05/11/24 12:23 Last Admin: 05/11/24 12:35 Dose: 5,000 unit Documented By: BRAYDON Sodium Chloride (Normal Saline 0.9%) 1,000 mls @ 1,000 mls/hr IV BOLUS ONE Stop: 05/11/24 13:17 Last Infusion: 05/11/24 13:12 Dose: Infused Documented By: Admin: 05/11/24 12:20 Dose: 1,000 mls/hr Documented By: BRAYDON Ceftriaxone Sodium 1,000 mg/ (Sodium Chloride) 100 mls @ 200 mls/hr IV NOW ONE Stop: 05/11/24 13:12 Last Infusion: 05/11/24 14:41 Dose: Infused Documented By: Admin: 05/11/24 14:07 Dose: 200 mls/hr Documented By: RENATO Ketorolac Tromethamine (Ketorolac 30 Mg/Ml Vial) 15 mg IV NOW ONE Stop: 05/11/24 17:12 Last Admin: 05/11/24 17:28 Dose: 15 mg Documented By: BRAYDON Morphine Sulfate (Morphine 4 Mg/Ml Inj) 4 mg IV NOW ONE Stop: 05/11/24 12:04 Last Admin: 05/11/24 12:19 Dose: 4 mg Documented By: BRAYDON Pantoprazole Sodium (Pantoprazole 40 Mg Vial) 40 mg IV NOW ONE Stop: 05/11/24 13:08 Last Admin: 05/11/24 14:08 Dose: 40 mg Documented By: RENATO Vital Signs Vital signs: Vital Signs - 8 hr 05/11/24 11:45 05/11/24 12:00 05/11/24 12:01 Temperature 97.1 F L Pulse Rate 100 H 98 H Respiratory Rate 20 Blood Pressure 116/78 118/77 Pulse Oximetry 98 97 Oxygen Delivery Method Room Air 05/11/24 12:01 05/11/24 12:05 05/11/24 12:08 Temperature Pulse Rate 96 H 96 H Respiratory Rate 37 H 19 Blood Pressure 124/74 Pulse Oximetry 98 98 Oxygen Delivery Method 05/11/24 12:08 05/11/24 12:09 05/11/24 12:10 Temperature Pulse Rate 97 H 97 H Respiratory Rate 25 H 25 H Blood Pressure 114/74 Pulse Oximetry 99 98 Oxygen Delivery Method 05/11/24 12:10 05/11/24 12:13 05/11/24 12:13 Temperature Pulse Rate 101 H 97 H Respiratory Rate 34 H 22 Blood Pressure 115/62 Pulse Oximetry 97 96 Oxygen Delivery Method 05/11/24 12:15 05/11/24 12:15 05/11/24 12:15 Temperature Pulse Rate 96 H 101 H Respiratory Rate 28 H Blood Pressure 114/77 105/62 Pulse Oximetry 93 Oxygen Delivery Method 05/11/24 12:20 05/11/24 12:20 05/11/24 12:21 Temperature Pulse Rate 94 H 92 H Respiratory Rate 21 Blood Pressure 106/59 L 106/59 L Pulse Oximetry 94 Oxygen Delivery Method 05/11/24 12:25 05/11/24 12:25 05/11/24 12:30 Temperature Pulse Rate 96 H Respiratory Rate 19 Blood Pressure 106/58 L 109/63 Pulse Oximetry 96 Oxygen Delivery Method 05/11/24 12:30 05/11/24 12:35 05/11/24 12:35 Temperature Pulse Rate 92 H 91 H Respiratory Rate 17 20 Blood Pressure 108/63 Pulse Oximetry 93 93 Oxygen Delivery Method 05/11/24 12:40 05/11/24 12:41 05/11/24 12:41 Temperature Pulse Rate 96 H 96 H Respiratory Rate 31 H 21 Blood Pressure 97/58 L Pulse Oximetry 94 94 Oxygen Delivery Method 05/11/24 12:45 05/11/24 12:45 05/11/24 12:50 Temperature Pulse Rate 90 87 Respiratory Rate 25 H 26 H Blood Pressure 105/63 Pulse Oximetry 96 97 Oxygen Delivery Method 05/11/24 12:50 05/11/24 12:55 05/11/24 12:55 Temperature Pulse Rate 86 Respiratory Rate 18 Blood Pressure 107/62 109/64 Pulse Oximetry 96 Oxygen Delivery Method 05/11/24 13:00 05/11/24 13:00 05/11/24 13:05 Temperature Pulse Rate 89 90 Respiratory Rate 24 21 Blood Pressure 91/73 Pulse Oximetry 95 94 Oxygen Delivery Method 05/11/24 13:09 05/11/24 13:09 05/11/24 13:10 Temperature Pulse Rate 86 Respiratory Rate 23 Blood Pressure 104/63 102/62 Pulse Oximetry 96 Oxygen Delivery Method 05/11/24 13:10 05/11/24 13:10 05/11/24 13:15 Temperature Pulse Rate 85 87 Respiratory Rate 20 Blood Pressure 102/62 Pulse Oximetry 97 95 Oxygen Delivery Method 05/11/24 13:15 05/11/24 13:15 05/11/24 13:40 Temperature Pulse Rate 89 Respiratory Rate Blood Pressure 99/61 99/61 Pulse Oximetry 94 Oxygen Delivery Method 05/11/24 13:41 05/11/24 13:41 05/11/24 13:45 Temperature Pulse Rate 88 86 Respiratory Rate 21 17 Blood Pressure 108/67 Pulse Oximetry 95 97 Oxygen Delivery Method 05/11/24 13:50 05/11/24 13:55 05/11/24 14:00 Temperature Pulse Rate 86 92 H Respiratory Rate 18 22 Blood Pressure 112/67 Pulse Oximetry 96 96 Oxygen Delivery Method 05/11/24 14:00 05/11/24 14:05 05/11/24 14:10 Temperature Pulse Rate 86 85 90 Respiratory Rate 18 17 21 Blood Pressure Pulse Oximetry 96 95 94 Oxygen Delivery Method Room Air 05/11/24 14:15 05/11/24 14:20 05/11/24 14:25 Temperature Pulse Rate 84 84 91 H Respiratory Rate 26 H 16 22 Blood Pressure Pulse Oximetry 97 97 96 Oxygen Delivery Method 05/11/24 14:30 05/11/24 14:30 05/11/24 14:35 Temperature Pulse Rate 85 88 Respiratory Rate 21 22 Blood Pressure 101/60 Pulse Oximetry 96 97 Oxygen Delivery Method 05/11/24 14:40 05/11/24 14:45 05/11/24 14:50 Temperature Pulse Rate 84 84 84 Respiratory Rate 21 19 15 Blood Pressure Pulse Oximetry 96 97 98 Oxygen Delivery Method 05/11/24 14:55 05/11/24 15:00 05/11/24 15:00 Temperature Pulse Rate 83 84 Respiratory Rate 18 31 H Blood Pressure 107/66 Pulse Oximetry 97 98 Oxygen Delivery Method 05/11/24 15:05 05/11/24 15:10 05/11/24 15:15 Temperature Pulse Rate 86 90 86 Respiratory Rate 21 21 20 Blood Pressure Pulse Oximetry 96 Oxygen Delivery Method 05/11/24 15:20 05/11/24 15:25 05/11/24 15:30 Temperature Pulse Rate 84 84 84 Respiratory Rate 22 18 16 Blood Pressure Pulse Oximetry 98 98 96 Oxygen Delivery Method 05/11/24 15:30 05/11/24 15:35 05/11/24 15:37 Temperature Pulse Rate 86 96 H Respiratory Rate 19 Blood Pressure 118/78 118/78 Pulse Oximetry 95 Oxygen Delivery Method 05/11/24 15:40 05/11/24 15:40 05/11/24 15:45 Temperature Pulse Rate 85 Respiratory Rate 19 Blood Pressure 119/81 107/70 Pulse Oximetry 98 Oxygen Delivery Method 05/11/24 15:45 05/11/24 15:50 05/11/24 15:51 Temperature Pulse Rate 86 86 93 H Respiratory Rate 19 17 25 H Blood Pressure Pulse Oximetry 97 98 97 Oxygen Delivery Method Room Air 05/11/24 15:51 05/11/24 15:55 05/11/24 15:55 Temperature Pulse Rate 86 Respiratory Rate 19 Blood Pressure 98/63 115/72 Pulse Oximetry 97 Oxygen Delivery Method 05/11/24 16:00 05/11/24 16:01 05/11/24 16:01 Temperature Pulse Rate 91 H 91 H Respiratory Rate 26 H 27 H Blood Pressure 125/101 H Pulse Oximetry 98 99 Oxygen Delivery Method 05/11/24 16:05 05/11/24 16:06 05/11/24 16:06 Temperature Pulse Rate 91 H 89 Respiratory Rate 20 18 Blood Pressure 105/59 L Pulse Oximetry 99 99 Oxygen Delivery Method 05/11/24 16:10 05/11/24 16:10 05/11/24 16:15 Temperature Pulse Rate 89 89 Respiratory Rate 16 19 Blood Pressure 108/71 Pulse Oximetry 98 97 Oxygen Delivery Method 05/11/24 16:15 05/11/24 16:20 05/11/24 16:20 Temperature Pulse Rate 88 Respiratory Rate 19 Blood Pressure 112/75 107/74 Pulse Oximetry 97 Oxygen Delivery Method 05/11/24 16:25 05/11/24 16:25 05/11/24 16:30 Temperature Pulse Rate 88 87 Respiratory Rate 17 15 Blood Pressure 110/71 Pulse Oximetry 96 96 Oxygen Delivery Method 05/11/24 16:30 05/11/24 16:35 05/11/24 16:35 Temperature Pulse Rate 87 Respiratory Rate 17 Blood Pressure 105/71 110/69 Pulse Oximetry 97 Oxygen Delivery Method 05/11/24 16:40 05/11/24 16:40 05/11/24 16:45 Temperature Pulse Rate 86 Respiratory Rate 16 Blood Pressure 112/70 115/72 Pulse Oximetry 97 Oxygen Delivery Method 05/11/24 16:45 05/11/24 16:50 05/11/24 16:50 Temperature Pulse Rate 87 87 Respiratory Rate 16 18 Blood Pressure 111/74 Pulse Oximetry 97 97 Oxygen Delivery Method 05/11/24 16:55 05/11/24 16:55 05/11/24 17:00 Temperature Pulse Rate 87 87 Respiratory Rate 16 18 Blood Pressure 113/69 Pulse Oximetry 97 98 Oxygen Delivery Method 05/11/24 17:00 05/11/24 17:05 05/11/24 17:05 Temperature Pulse Rate 90 Respiratory Rate 18 Blood Pressure 114/67 114/66 Pulse Oximetry 97 Oxygen Delivery Method 05/11/24 17:10 05/11/24 17:10 05/11/24 17:15 Temperature Pulse Rate 88 91 H Respiratory Rate 17 24 Blood Pressure 114/64 Pulse Oximetry 96 Oxygen Delivery Method 05/11/24 18:33 05/11/24 18:57 Temperature 98.9 F Pulse Rate Respiratory Rate Blood Pressure 108/63 Pulse Oximetry Oxygen Delivery Method MDM - Chest Pain Lab Data Attestation: I reviewed the patient's lab results. 05/11/24 11:49 05/11/24 11:49 Labs: Lab Results 05/11/24 05/11/24 Range/Units 11:49 13:50 WBC 10.5 (4.5-11.0) X10^3/uL RBC 4.36 (4.0-5.2) X10^6/uL Hgb 13.8 (12.0-16.0) g/dL Hct 39.5 (36-46) % MCV 90.6 (80-100) fL MCH 31.5 (26-34) PG MCHC 34.8 (30-36) % RDW 13.0 (11.6-14.8) % Plt Count 230 (150-400) X10^3/uL Neut % (Auto) 77.7 H (50-75) % Lymph % (Auto) 11.8 L (25-40) % Schleicher % (Auto) 9.5 (3-14) % Eos % (Auto) 0.7 L (2-4) % Baso % (Auto) 0.3 (0-2) % Neut # (Auto) 8100 H (6133-8998) /uL Lymph # (Auto) 1200 (3467-0827) /uL Schleicher # (Auto) 1000 H (0-900) /uL Eos # (Auto) 100 (0-450) /uL Baso # (Auto) 0 (0-100) /uL PT 11.4 (9.4-12.5) SECONDS INR 1.0 (0.9-1.3) APTT 43 H (25.1-36.5) SECONDS Sodium 133 L (137-145) mmol/L Potassium 3.5 (3.4-5.1) mmol/L Chloride 96 L (98-107) mmol/L Carbon Dioxide 31 (22-32) mmol/L BUN 22 H (7-17) mg/dL Creatinine 0.67 (0.52-1.04) mg/dL Estimated GFR > 60 (>60) mL/min BUN/Creatinine Ratio 32.8 H (6-22) Glucose 116 H (80-110) mg/dL Calcium 9.8 (8.4-10.2) mg/dL Magnesium 1.8 (1.6-2.3) mg/dL Total Bilirubin 0.9 (0.2-1.3) mg/dL AST 33 (14-36) IU/L ALT 31 (<35) IU/L Alkaline Phosphatase 78 (38-126) U/L Total Creatine Kinase 123 (30-135) U/L Troponin I < 0.012 < 0.012 (0.01-0.034) ng/mL NT-Pro-B Natriuret Pep 78 (<125) pg/mL Total Protein 8.2 (6.3-8.2) g/dL Albumin 4.6 (3.5-5.0) g/dL Globulin 3.6 (1.7-4.1) g/dL Albumin/Globulin Ratio 1.3 (1.0-2.8) Lipase 76 (23-300) U/L Urine Dip Bedside Urine Glucose Negative Bedside Urine Bilirubin - Negative Bedside Urine Ketone - Negative Urine Specific [place] 1.010 Bedside Urine Occult Blood +/- Bedside Urine pH 6.0 Bedside Urine Protein - Negative Bedside Urine Urobilinogen - Negative Bedside Urine Nitrite - Negative Bedside Urine Leukocytes - Negative Esterase Imaging Data CT chest abdomen pelvis: Radiologist's Impression: [address] [address] [address] Scan Report Signed Patient: Mouna Darby MR#: [id number] : 1960 Acct:[id number] Age/Sex: 63 / F Date of Service: 05/11/24 Loc: ED Accession Number: [id number] Procedure: CT angio chest abdomen pelvis Ordering Provider: Brigido Chávez MD PROCEDURE: CT ANGIO CHEST ABDOMEN PELVIS INDICATIONS: chest pain TECHNIQUE: Precontrast 5 mm thick sections acquired from the lung apices to the iliac crests. After the administration of intravenous contrast, 2.5 mm thick sections again acquired from the lung apices to the iliac crests. Maximum intensity projection (MIP) oblique sagittal and coronal reformats were then acquired. For radiation dose reduction, the following was used: automated exposure control. COMPARISON: None. FINDINGS: Image quality: Diagnostic. AORTA: No aortic aneurysm. No acute aortic syndrome. CHEST: Lower Neck: No enlarged lymph nodes. Thyroid: No thyroid nodules which require sonographic evaluation. Axillae: No enlarged lymph nodes. Chest Wall: Unremarkable. Lungs and Pleura: No pneumothorax or pleural effusions. Bronchial thickening with secretions. Juxtapleural nodules with smooth margins, favoring benign intrapulmonary lymph nodes. Heart: Heart size is normal. No pericardial effusion. Three-vessel coronary artery calcifications, marked for age. Thoracic Vessels: Pulmonary arteries demonstrate normal size. Mediastinum and [place]: No enlarged lymph nodes. Esophagus: No wall thickening. No hiatal hernia. ABDOMEN: Liver: No solid mass. Gallbladder: No radiopaque gallstones or wall thickening. Biliary ducts: No biliary dilation. Pancreas: No ductal dilation. Spleen: Size is within normal limits. Adrenal Glands: No adrenal nodules. Kidneys and Ureters: Atrophic left kidney, with multiple junctional cortical defects. Moderate burden of small left-sided stones and small burden of punctate nonobstructing right-sided stones. No hydronephrosis. Stomach and Bowel: Normal colonic caliber, without significant wall thickening. Colonic diverticulosis without evidence of diverticulitis. Normal appendix. Peritoneum: No abnormal intraperitoneal fluid. No free air. Ventral Wall: No hernia. Abdominal Nodes: No retroperitoneal or mesenteric adenopathy by size criteria. Vessels: Inferior vena cava is normal in size. PELVIS: Pelvic Organs: Unremarkable. Bladder: Unremarkable. Pelvic Nodes: No enlarged lymph nodes. Miscellaneous: No inguinal hernias are seen. Bones: Unremarkable. IMPRESSION: No aortic aneurysm or acute aortic syndrome. Marked coronary artery calcifications for age. Correlate with risk factors and advise counseling. Normal appendix, normal gallbladder. Colonic diverticulosis without evidence of diverticulitis. Bilateral nonobstructing nephrolithiasis. Dictated by: Pierre Collado M.D. on 05/11/2024 at 14:32 Approved by: Pierre Collado M.D. on 05/11/2024 at 14:37 ECG Data Attestation: I personally reviewed and interpreted this ECG as follows: Interpretation: 1152. Normal sinus rhythm with rate 94, there is [address] segment elevation in lead 2, also 0.5mm elevation lead 3 and F. none for comparison. SD 170, QRS 70, QTC 422. 1249. Normal sinus rhythm with rate 87. ST segment elevation less than 1 mm lead 2, no longer seen in lead 3 nor AVF. SD 176, QRS 70, QTC 423. 1415. Normal sinus rhythm with rate 86, no obvious ST segment elevation or depression changes at this time. SD 188, QRS 66, QTC 428. 1520, ST segment elevation again present like an EKG 1. This visit in lead 2, not present in lead 2, slight 0.[address] segment elevation lead F. Similar to EKG 1. SD 182, QRS 66, QTC 428. MDM Narrative Medical decision making narrative: 63-year-old female with no known heart history of CAD, risk factor hypertension, with parasternal chest discomfort intermittent since 4 this morning, screening EKG with ST segment elevation inferior leads, suspicious for inferior ST- elevation myocardial infarction. Ongoing chest pain. Trial of nitroglycerin, IV morphine, p.o. aspirin., we will start IV nitroglycerin, add IV heparin. Consider transfer to cardiac catheterization lab capable facility, we will contact [facility]. Fax EKG sent to ED physician [facility] Dr. Valdovinos, text sent EKG as well. 1230, reportedly Dr. Valdovinos could not see text, sent by charge nurse phone, they are contacting Cardiology, await call back from [facility] reports cardiology was contacted at [facility], did not feel there was a STEMI, consult as needed advised. Patient subsequently has decreased chest discomfort after nitroglycerin, low blood pressure, IV fluids given, heparin infusing. Chest x-ray describes possible infiltrate versus atelectasis. Blood cultures requested. IV ceftriaxone, p.o. azithromycin. CT angiogram chest abdomen and pelvis requested. Patient is still uncomfortable appearing. Repeat EKG looks improved however. Initial troponin negative. We will repeat interval troponin. Add IV Protonix. CT chest abdomen and pelvis, no acute changes, normal aorta, no mentioned pulmonary infiltrates, marked coronary artery calcifications noted for age, diverticulosis without diverticulitis, nonobstructing renal stones noted. See radiology report. Interval repeat troponin also negative. Unclear etiology of improved chest pain symptoms. Consider unstable angina, patient on heparin, did not tolerate PO nitroglycerin, but symptoms improved still has some residual chest discomfort. 1530, recurrence of chest pain, repeat EKG shows ST segment elevation in lead 2, not particularly evaluated and other inferior leads. Resume IV nitroglycerin without bolus. IV morphine. We will contact Cardiology. Case discussed with Dr. Theodore Leo brazer controlled atmospheric furnace, requests we consult with Dr. Black of cardiology 1650, call back from Dr. Black, case reviewed, he will review transmitted EKG series. Patient on nitroglycerin and heparin drip. Await call back from recommendations. 1710, case discussed with Dr. Black after his review of serial EKGs, he feels the patient may have pericarditis, recommend stopping heparin and nitroglycerin, IV Toradol, assess for control of symptoms. Can get outpatient echocardiogram. Infusions were stopped. IV Toradol ordered. Symptoms improved, prescription indomethacin sent to her pharmacy for discharge. Outpatient echocardiogram advised per Cardiology. Contact information for office of cardiologists also provided. Return precautions discussed. Further workup as an outpatient for now. Home, improved, stable Critical Care Time Critical Care Time Critical Care Time: Yes Total Critical Care Time: 31 Attestation: The high probability of a clinically significant, sudden or life threatening deterioration of the [cardiopulmonary] system(s) required my full and direct attention, intervention and personal management. The aggregate critical care time was [31] minutes. This time is in addition to time spent performing reported procedures but includes the following: [x] Data Review and interpretation [x] Patient assessment and monitoring of vital signs [x] Documentation [x] Medication orders and management Discharge Plan Departure Patient Disposition: Home Clinical Impression: Chest pain, Pericarditis Activity Restrictions/Additional Instructions: Chest pain, EKGs somewhat suspicious for heart attack, serial studies, blood test did not show evidence of heart damage however, EKGs were reviewed by cardiology Dr. Moe at [facility], who felt that you might have pericarditis, inflammation of the sac around the heart. Trial of anti- inflammatory medication. Indomethacin prescription sent to your pharmacy. After low suggested echocardiogram ultrasound of the heart as an outpatient. Discuss with your regular provider tomorrow, for outpatient echocardiogram order. Take indomethacin as directed. Return earlier to this/nearest emergency department for any change worsening symptoms or any concerns prior Prescriptions: New indomethacin 50 mg capsule 50 mg PO TID Qty: 30 0RF Rx Instructions: administer with food or milk omeprazole 20 mg capsule,delayed release(DR/EC) 20 mg PO DAILY 30 Days Qty: 30 0RF No Action ipratropium-albuterol 0.5 mg-3 mg(2.5 mg base)/3 mL solution for nebulization 3 ml inhalation Q6-8H PRN (Reason: shortness of breath) Qty: 90 0RF nystatin 100,000 unit/mL suspension 1 ml buccal DAILY Qty: 473 0RF Rx Instructions: administer 1/2 of dose in each side of the mouth montelukast 10 mg tablet 10 mg PO DAILY Qty: 90 3RF cholecalciferol (vitamin D3) 25 mcg (1,000 unit) capsule 25 mcg PO DAILY fluticasone propion-salmeterol 250-50 mcg/dose blister with device 1 - 2 ea inhalation BID Qty: 60 4RF Hold Instructions: doing well on singulair alone phentermine 37.5 mg tablet 37.5 mg PO DAILY Qty: 30 0RF Rx Instructions: must administer 30 minutes before or 1-2 hours after breakfast lorazepam 1 mg tablet 1 mg PO DAILY PRN (Reason: anxiety) Qty: 30 0RF chlorthalidone 25 mg tablet 12.5 mg PO DAILY Qty: 90 3RF Rx Instructions: put on hold until she requests a refill lisinopril 10 mg tablet 10 mg PO DAILY Qty: 90 3RF Rx Instructions: put on file ondansetron 4 mg tablet,disintegrating 4 mg PO Q6-8H PRN (Reason: nausea and vomiting) Qty: 30 5RF Fiber (psyllium husk-sugar) 3.4 gram/7 gram powder 1 tbsp PO BID Qty: 822 0RF albuterol sulfate 90 mcg/actuation HFA aerosol inhaler 2 puff inhalation Q4-6H PRN (Reason: shortness of breath or wheezing) Qty: 8.5 2RF albuterol sulfate 2.5 mg /3 mL (0.083 %) solution for nebulization 2.5 mg inhalation Q4H PRN (Reason: shortness of breath or wheezing) Qty: 75 2RF Referrals: Trenton Villarreal MD [Physician] - Garett Bland DO [Primary Care Provider] - Stand Alone Forms: Patient Portal/API, Work Release Note
[2024-05-11] MEDS: NITROGLYCERIN 0.4 MG SL TAB SL ×2 (12:15→12:21)
--- NOTE | 2024-05-11 12:17 | PC.NURSE ---
PO NTG x1 and morphine 4mg given. CP with relief. Order for NTG gtt. BP 105/62. Holding gtt at this time. aware.
[2024-05-11] MEDS: SODIUM CHLORIDE 0.9% 1,000 ML 150 ML IV (12:19)
[2024-05-11] MEDS: MORPHINE 4 MG/ML INJ IV (12:19)
[2024-05-11 12:20] LABS: Add Manual Diff / Slide Review NO; Basophils Absolute Auto 0 /uL (0-100); Basophils Percent Auto 0.3 % (0-2); Eosinophils Absolute Auto 100 /uL (0-450); Eosinophils Percent Auto 0.7 % (2-4); Hematocrit 39.5 % (36-46); Hemoglobin 13.8 g/dL (12.0-16.0); Lymphocytes Absolute Auto 1200 /uL (1100-4500); Lymphocytes Percent Auto 11.8 % (25-40); Mean Corpuscular HGB Conc 34.8 % (30-36); Mean Corpuscular Hemoglobin 31.5 PG (26-34); Mean Corpuscular Volume 90.6 fL (80-100); Monocytes Absolute Auto 1000 /uL (0-900); Monocytes Percent Auto 9.5 % (3-14); Neutrophils Absolute Auto 8100 /uL (1500-7000); Neutrophils Percent Auto 77.7 % (50-75); Platelet Count 230 X10^3/uL (150-400); Red Blood Cell Count 4.36 X10^6/uL (4.0-5.2); White Blood Cell Count 10.5 X10^3/uL (4.5-11.0)
[2024-05-11] MEDS: SODIUM CHLORIDE 0.9% 1,000 ML 1000 ML IV (12:20)
[2024-05-11 12:27] LABS: Prothrombin Time 11.4 SECONDS (9.4-12.5)
[2024-05-11 12:30] LABS: PTT Partial Thromboplastin Tim 43 SECONDS (25.1-36.5)
[2024-05-11 12:33] LABS: Alanine Aminotransferase 31 IU/L (<35); Albumin 4.6 g/dL (3.5-5.0); Albumin Globulin Ratio 1.3 (1.0-2.8); Alkaline Phosphatase 78 U/L (38-126); Aspartate Aminotransferase 33 IU/L (14-36); BUN Creatinine Ratio 32.8 (6-22); Bilirubin Total 0.9 mg/dL (0.2-1.3); Blood Urea Nitrogen 22 mg/dL (7-17); Calcium 9.8 mg/dL (8.4-10.2); Carbon Dioxide 31 mmol/L (22-32); Chloride 96 mmol/L (98-107); Creatine Kinase 123 U/L (30-135); Estimated Glomerular Filt Rate > 60 mL/min (>60); Globulin 3.6 g/dL (1.7-4.1); Glucose 116 mg/dL (80-110); HEMOLYSIS < 15 (0-50); Lipase 76 U/L (23-300); Magnesium 1.8 mg/dL (1.6-2.3); Potassium 3.5 mmol/L (3.4-5.1); Sodium 133 mmol/L (137-145); Total Protein 8.2 g/dL (6.3-8.2)
[2024-05-11] MEDS: HEPARIN 5,000 UNIT/ML VIAL 5500 UNIT IV (12:35)
[2024-05-11] MEDS: HEPARIN DRIP 25,000 UNIT/500 ML IV.SOLN 22.317 UNIT IV (12:36)
[2024-05-11 12:45] LABS: NT-proBNP (BNP-Adult 18+) 78 pg/mL (<125); Troponin I < 0.012 ng/mL (0.01-0.034)
--- NOTE | 2024-05-11 13:09 | DI.CT.S_ITS ---
PROCEDURE: CT ANGIO CHEST ABDOMEN PELVIS INDICATIONS: chest pain TECHNIQUE: Precontrast 5 mm thick sections acquired from the lung apices to the iliac crests. After the administration of intravenous contrast, 2.5 mm thick sections again acquired from the lung apices to the iliac crests. Maximum intensity projection (MIP) oblique sagittal and coronal reformats were then acquired. For radiation dose reduction, the following was used: automated exposure control. COMPARISON: None. FINDINGS: Image quality: Diagnostic. AORTA: No aortic aneurysm. No acute aortic syndrome. CHEST: Lower Neck: No enlarged lymph nodes. Thyroid: No thyroid nodules which require sonographic evaluation. Axillae: No enlarged lymph nodes. Chest Wall: Unremarkable. Lungs and Pleura: No pneumothorax or pleural effusions. Bronchial thickening with secretions. Juxtapleural nodules with smooth margins, favoring benign intrapulmonary lymph nodes. Heart: Heart size is normal. No pericardial effusion. Three-vessel coronary artery calcifications, marked for age. Thoracic Vessels: Pulmonary arteries demonstrate normal size. Mediastinum and [place]: No enlarged lymph nodes. Esophagus: No wall thickening. No hiatal hernia. ABDOMEN: Liver: No solid mass. Gallbladder: No radiopaque gallstones or wall thickening. Biliary ducts: No biliary dilation. Pancreas: No ductal dilation. Spleen: Size is within normal limits. Adrenal Glands: No adrenal nodules. Kidneys and Ureters: Atrophic left kidney, with multiple junctional cortical defects. Moderate burden of small left-sided stones and small burden of punctate nonobstructing right-sided stones. No hydronephrosis. Stomach and Bowel: Normal colonic caliber, without significant wall thickening. Colonic diverticulosis without evidence of diverticulitis. Normal appendix. Peritoneum: No abnormal intraperitoneal fluid. No free air. Ventral Wall: No hernia. Abdominal Nodes: No retroperitoneal or mesenteric adenopathy by size criteria. Vessels: Inferior vena cava is normal in size. PELVIS: Pelvic Organs: Unremarkable. Bladder: Unremarkable. Pelvic Nodes: No enlarged lymph nodes. Miscellaneous: No inguinal hernias are seen. Bones: Unremarkable. IMPRESSION: No aortic aneurysm or acute aortic syndrome. Marked coronary artery calcifications for age. Correlate with risk factors and advise counseling. Normal appendix, normal gallbladder. Colonic diverticulosis without evidence of diverticulitis. Bilateral nonobstructing nephrolithiasis. Dictated by: Pierre Collado M.D. on 05/11/2024 at 14:32 Approved by: Pierre Collado M.D. on 05/11/2024 at 14:37
[2024-05-11] MEDS: cefTRIAXone 1,000 MG in SODIUM CHLORIDE 0.9% 100 ML 200 MG IV (14:07)
[2024-05-11] MEDS: AZITHROMYCIN 250 MG TABLET 500 MG PO (14:08)
[2024-05-11] MEDS: PANTOPRAZOLE 40 MG VIAL IV (14:08)
--- NOTE | 2024-05-11 14:15 | EKG_ITS ---
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
[2024-05-11 14:31] LABS: Troponin I < 0.012 ng/mL (0.01-0.034)
--- NOTE | 2024-05-11 15:18 | PC.NURSE ---
Helped patient use the bedside commode. Upon completion patient described her chest feeling tight with a pain level of 8 out of 10. RN notified. ZIPPER CUTTER now preforming an EKG
--- NOTE | 2024-05-11 15:20 | EKG_ITS ---
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
[2024-05-11] MEDS: NITROGLYCERIN 50 MG/250 ML INFUS..BTL IV (15:37)
[2024-05-11] MEDS: KETOROLAC 30 MG/ML VIAL 15 MG IV (17:28)
== END 2024-05-11 18:57 | disposition home or self-care (01) ==
PROVIDERS: Emergency Provider Emergency Medicine; Family Provider Family Medicine; PCP Family Medicine
DX: R07.9 Chest pain, unspecified (principal); I31.9 Disease of pericardium, unspecified; Z79.899 Other long term (current) drug therapy
CPT/HCPCS: 36415; 71045; 71275; 74174; 80053; 81003; 82550; 83690; 83735; 83880; 84484; 85025; 85610; 85730; 87040; 93005; 93010; 96365; 96366; 96367; 96375; 99285; 99291; J0696; J1644; J1885; J2270; J2470; Q9967

== ENCOUNTER → 2024-06-27 14:32 | Outpatient (CLI) | payer OTHER, SELFPAY ==
[2024-06-27 15:10] LABS: Add Manual Diff / Slide Review NO; Basophils Absolute Auto 0 /uL (0-100); Basophils Percent Auto 0.6 % (0-2); Eosinophils Absolute Auto 200 /uL (0-450); Hemoglobin 13.3 g/dL (12.0-16.0); Lymphocytes Absolute Auto 1200 /uL (1100-4500); Lymphocytes Percent Auto 23.4 % (25-40); Mean Corpuscular HGB Conc 34.9 % (30-36); Mean Corpuscular Hemoglobin 31.5 PG (26-34); Mean Corpuscular Volume 90.5 fL (80-100); Monocytes Absolute Auto 400 /uL (0-900); Monocytes Percent Auto 8.3 % (3-14); Neutrophils Absolute Auto 3400 /uL (1500-7000); Neutrophils Percent Auto 63.7 % (50-75); Platelet Count 181 X10^3/uL (150-400); Red Cell Distribution Width 12.8 % (11.6-14.8); White Blood Cell Count 5.3 X10^3/uL (4.5-11.0)
[2024-06-27 15:48] LABS: Alanine Aminotransferase 41 IU/L (<35); Albumin 4.1 g/dL (3.5-5.0); Albumin Globulin Ratio 1.5 (1.0-2.8); Alkaline Phosphatase 79 U/L (38-126); Aspartate Aminotransferase 35 IU/L (14-36); Bilirubin Total 0.5 mg/dL (0.2-1.3); Blood Urea Nitrogen 16 mg/dL (7-17); Calcium 10.3 mg/dL (8.4-10.2); Carbon Dioxide 32 mmol/L (22-32); Chloride 101 mmol/L (98-107); Estimated Glomerular Filt Rate > 60 mL/min (>60); Globulin 2.8 g/dL (1.7-4.1); Glucose 108 mg/dL (80-110); HEMOLYSIS < 15 (0-50); Lipase 124 U/L (23-300); Potassium 4.1 mmol/L (3.4-5.1); Sodium 138 mmol/L (137-145); Total Protein 6.9 g/dL (6.3-8.2)
[2024-06-27 17:02] LABS: HIV 1 & 2 Ab/Ag 4th Gen Combo NEGATIVE (NEGATIVE); Hep C Virus Ab w/Reflex Quant NEGATIVE s/c (NEGATIVE)
== END ==
PROVIDERS: Family Provider Family Medicine; PCP Family Medicine; Referring Provider Family Medicine; Visit Provider Family Medicine
DX: Z11.59 Encounter for screening for other viral diseases (principal); Z11.4 Encounter for screening for human immunodeficiency virus [HIV]; R10.13 Epigastric pain
CPT/HCPCS: 36415; 80053; 83690; 85025; 86803; 87389

== ENCOUNTER → 2024-07-05 15:55 | Outpatient (CLI) | payer OTHER, SELFPAY ==
--- NOTE | 2024-07-07 14:55 | DIET.OUTPTC ---
Dietary Outpatient Consultation Note Consultation Date: 07/05/2024 Assessment: 63 y F referred to dietitian for obesity and atherosclerotic heart disease of [place] coronary artery without angina pectoris. Pt reports concern about atherosclerotic heart disease. Has questions regarding food portions and heart healthy dietary patterns. Is struggling to cook/plan meals like she used to. Since moving to [place] has felt isolated. Works remotely. Is very busy during day at job, sometimes doesn't eat, does get breaks. Has to take dog out for walk at lunch. A1c 5.4%, no lipid panel seen. Is taking statin now. Was on phentermine at one point and lost weight. Diet recall: B-2 cups coffee 1 tsp sugar and milk, steel cut oats w/ raisins and 2 tbsp nuts L-salad pre-mixed, 1/2 bag or skip D- tacos w/ corn tortillas, plain nicaraguan yogurt as sour cream, cilantro water, tea, almond milk chocolates (varying amount-4+) fun sized candy bars Ht: - Wt: 98.146 kg on 05/13/24 BMI:- UBW: 93.894 kg on 02/06/24 Nutrition Diagnosis: Nutrition related knowledge deficit r/t limited previous educ, new dx aeb intake assessment Interventions: Discussed topics and provided appropriate handouts on the follow: -Label reading, reviewed nutrition facts of commonly consumed foods, compared fact on different foods -Dietary patterns such as DASH and Mediterranean diet with emphasize on plate method, heart healthy fats, <2 g sodium, adequate fiber, lean meats and low fat dairy -Brainstormed additional meal options i.e vegetable/plant based protein soups, cooking chicken ahead of time -Saturated fat, sources, poly&monounsaturated fats -Physical activity Exgwd-Opu-vzsg lunch (protein, carb, fiber) to help reduce day-time hunger sweet intake EER: saturated fat <6-7% total caloric intake Monitoring/Evaluations: f/u 6 weeks Electronically Signed by: Gillian Pandey 07/07/24 14:55 Clinical Dietitian [address] [address]
== END ==
PROVIDERS: Family Provider Family Medicine; PCP Family Medicine; Referring Provider Family Medicine
DX: E66.811 Obesity, class 1 (principal); I25.10 Atherosclerotic heart disease of native coronary artery without angina pectoris; Z71.3 Dietary counseling and surveillance; Z68.30 Body mass index [BMI] 30.0-30.9, adult
CPT/HCPCS: 97802

== ENCOUNTER 2024-07-23 22:58 | Emergency (ER) | payer OTHER, SELFPAY ==
[2024-07-23 23:07] VITALS: BP 133/72; PULSE 91; RESP 18; TEMP 36.8; O2SAT 97
--- NOTE | 2024-07-23 23:07 | ED.SKABFB ---
HPI - Skin/Abscess/Foreign Bdy General Chief complaint: Wound/Laceration Stated complaint: hand laceration Time Seen by Provider: 07/23/24 22:58 History of Present Illness HPI narrative: 63-year-old female presents for evaluation of wound on right hand. 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 She states that she called her insurance advice line, who told her that she had a strict 12 hour window to have her wound fixed if she needed stitches and she would have to go into the emergency department to have it evaluated. Last tetanus in 2013 per pt report. Related Data Home Medications Medication Instructions Recorded Confirmed cholecalciferol (vitamin D3) 25 25 mcg PO DAILY 10/21/23 05/13/24 mcg (1,000 unit) capsule Previous Rx's Medication Instructions Recorded albuterol sulfate 2.5 mg/3 mL 2.5 mg (3 mL) inhalation Q4H PRN 12/22/22 (0.083 %) solution for nebulization shortness of breath or wheezing #75 mL albuterol sulfate 90 mcg/actuation 2 puff inhalation Q4-6H PRN 12/22/22 aerosol inhaler shortness of breath or wheezing #8.5 grams psyllium husk (with sugar) 3.4 1 tbsp PO BID #822 grams 04/17/23 gram/7 gram oral powder (Fiber (psyllium husk-sugar)) ondansetron 4 mg disintegrating 4 mg PO Q6-8H PRN nausea and 09/18/23 tablet vomiting #30 tabs lorazepam 1 mg tablet 1 mg PO DAILY PRN anxiety #30 tabs 10/15/23 fluticasone 250 mcg-salmeterol 50 1 - 2 ea inhalation BID #60 ea 02/02/24 mcg/dose blistr powdr for inhalation ipratropium 0.5 mg-albuterol 3 mg 3 ml inhalation Q6-8H PRN 02/19/24 (2.5 mg base)/3 mL nebulization shortness of breath #90 mL soln chlorthalidone 25 mg tablet 12.5 mg (1/2 x 25 mg) PO DAILY 03/01/24 blood pressure #90 tabs lisinopril 10 mg tablet 10 mg PO DAILY blood pressure #90 03/01/24 tabs phentermine 37.5 mg tablet 37.5 mg PO DAILY #30 tabs 03/30/24 indomethacin 50 mg capsule 50 mg PO TID #30 caps 05/11/24 rosuvastatin 10 mg tablet 10 mg PO DAILY #100 tabs 05/13/24 montelukast 10 mg tablet 10 mg PO DAILY #90 tabs 06/06/24 acyclovir 400 mg tablet 400 mg PO 5XD PRN outbreak 7 days 07/18/24 #70 tabs Allergies Allergy/AdvReac Type Severity Reaction Status Date / Time No Known Drug Allergies Allergy Verified 05/13/24 16:08 Patient History Medical History Coronary artery calcification Venous insufficiency of both lower extremities CTS (carpal tunnel syndrome) Depression Left knee DJD Facet arthropathy, lumbar Lumbar radiculopathy, chronic Obesity (BMI 30.0-34.9) Herniated disc Measles (~1962) Hyperthyroidism (~2007) Skin cancer (~2019) Parathyroid tumor Family history of colon cancer Benign essential HTN Melanoma (~2019) Asthma Surgical History Anesthesia History of partial hysterectomy (~2013) Status post hysterectomy Status post parathyroidectomy (~12/11/05) History of tonsillectomy Family History Father Hypertension Cancer Mother Hypertension Grandmother Hypertension Cancer Brother Cancer Sister Cancer Grandfather Cancer Grandmother Pneumonia Grandfather Cancer Social History household members: none Smoking Status: Never smoker alcohol intake: current Smoking Status: Never smoker alcohol intake frequency: holidays/special occasions only Substance Use Type: marijuana Exam Initial Vital Signs Initial Vital Signs: Vital Signs Temperature 98.3 F 07/23/24 23:07 Pulse Rate 91 H 07/23/24 23:07 Respiratory Rate 18 07/23/24 23:07 Blood Pressure 133/72 07/23/24 23:07 Pulse Oximetry 97 07/23/24 23:07 Oxygen Delivery Method Room Air 07/23/24 23:07 Const: Awake, alert, no acute distress, nontoxic appearing MSK: no deformity, full range of motion Skin: superficial 2x2cm V-shaped skin tear over dorsum of R hand just proximal to base of thumb. No bleeding Neuro: AO x3, CN II-XII grossly intact, moves all extremities Course Orders Ordered: Discontinued Medications Hydrocodone Bitart/Acetaminophen (Hydrocodone/Acet 5/325 Tablet) 1 tab PO NOW ONE Stop: 07/23/24 23:07 Last Admin: 07/23/24 23:19 Dose: 1 tab Diphtheria/Tetanus/Acell Pertussis (Tet,Diph,Pertuss(Acell),Vac/Pf 0.5 Ml Syringe) 0.5 ml IM .ONCE ONE Stop: 07/23/24 23:07 Last Admin: 07/23/24 23:19 Dose: 0.5 ml Vital Signs Vital signs: Vital Signs - 8 hr 07/23/24 23:07 Temperature 98.3 F Pulse Rate 91 H Respiratory Rate 18 Blood Pressure 133/72 Pulse Oximetry 97 Oxygen Delivery Method Room Air MDM - Skin/Abscess/Foreign Bdy MDM Narrative Medical decision making narrative: Superficial abrasion of skin of right hand. No suturable lacerations. Tetanus shot updated. Wound bandaged. Patient given a single pain pill for home since she was complaining of throbbing pain. Discharge Plan Departure Patient Disposition: Home Clinical Impression: Skin tear of hand without complication Qualifiers: Encounter type: initial encounter Laterality: right Qualified Code(s): S61.411A - Laceration without foreign body of right hand, initial encounter Instructions: DI for Minor Laceration Activity Restrictions/Additional Instructions: Keep your wound clean and dry. If you wear a bandage, change it daily. Your tetanus shot was updated today. The norco tablet given can help control your pain tonight. Do not take this medication with alcohol or before driving as it will cause drowsiness. If you notice unusual redness, drainage, or swelling please return for repeat evaluation. I do expect that within 2 weeks the skin should be healed enough to go snorkeling, however if you have any open wounds then you should avoid oceans, lakes, or other standing water Prescriptions: No Action ipratropium-albuterol 0.5 mg-3 mg(2.5 mg base)/3 mL solution for nebulization 3 ml inhalation Q6-8H PRN (Reason: shortness of breath) Qty: 90 0RF cholecalciferol (vitamin D3) 25 mcg (1,000 unit) capsule 25 mcg PO DAILY fluticasone propion-salmeterol 250-50 mcg/dose blister with device 1 - 2 ea inhalation BID Qty: 60 4RF Hold Instructions: doing well on singulair alone phentermine 37.5 mg tablet 37.5 mg PO DAILY Qty: 30 0RF Hold Instructions: Home Medication placed on hold at Doctor's office Rx Instructions: must administer 30 minutes before or 1-2 hours after breakfast montelukast 10 mg tablet 10 mg PO DAILY Qty: 90 3RF acyclovir 400 mg tablet 400 mg PO 5XD PRN (Reason: outbreak) 7 Days Qty: 70 5RF lorazepam 1 mg tablet 1 mg PO DAILY PRN (Reason: anxiety) Qty: 30 0RF chlorthalidone 25 mg tablet 12.5 mg PO DAILY Qty: 90 3RF Rx Instructions: put on hold until she requests a refill lisinopril 10 mg tablet 10 mg PO DAILY Qty: 90 3RF Rx Instructions: put on file ondansetron 4 mg tablet,disintegrating 4 mg PO Q6-8H PRN (Reason: nausea and vomiting) Qty: 30 5RF rosuvastatin 10 mg tablet 10 mg PO DAILY Qty: 100 3RF Fiber (psyllium husk-sugar) 3.4 gram/7 gram powder 1 tbsp PO BID Qty: 822 0RF indomethacin 50 mg capsule 50 mg PO TID Qty: 30 0RF Rx Instructions: administer with food or milk albuterol sulfate 90 mcg/actuation HFA aerosol inhaler 2 puff inhalation Q4-6H PRN (Reason: shortness of breath or wheezing) Qty: 8.5 2RF albuterol sulfate 2.5 mg /3 mL (0.083 %) solution for nebulization 2.5 mg inhalation Q4H PRN (Reason: shortness of breath or wheezing) Qty: 75 2RF Referrals: Garett Bland DO [Primary Care Provider] - Stand Alone Forms: Patient Portal/API/Survey
[2024-07-23] MEDS: HYDROCODONE/ACET 5/325 TABLET 1 TAB PO (23:19)
[2024-07-23] MEDS: TET,DIPH,PERTUSS(ACELL),VAC/PF 0.5 ML SYRINGE IM (23:19)
== END 2024-07-23 23:30 | disposition home or self-care (01) ==
PROVIDERS: Emergency Provider Emergency Medicine; Family Provider Family Medicine; PCP Family Medicine
DX: S61.411A Laceration without foreign body of right hand, initial encounter (principal); X58.XXXA Exposure to other specified factors, initial encounter; Z23 Encounter for immunization
CPT/HCPCS: 90471; 99283; 90715

== ENCOUNTER → 2024-09-13 07:04 | Outpatient (CLI) | payer MEDICARE, OTHER, SELFPAY ==
--- NOTE | 2024-09-13 07:07 | DI.ECHO.S_ITS ---
[facility] : : [address] : : [place] : : [id number] : : Phone: [phone] Echocardiogram Report + + :Name: JASSI BLANDON Study Date: 09/13/2024 Height: 67.5 in: :[facility] ReadingLocation: Weight: 210 lb : : Gender: Female BSA: 2.1 m2 : :: 1960 Age: 64 yrs BP: 118/62 mmHg: :Reason For Study: CHEST PAIN, POSSIBE PERICARDITIS : :Ordering Physician: BRYON ALBRECHTPerformed By: Dior Estrada : :Referring: BRYON ALBRECHT : + + Interpretation Summary The ejection fraction is estimated to be 60-65%. There is an anterior echo-free space consistent with a fat pad. There may be scant amount of fluid in the pericardial space. No signs of tamponade. There is no significant valvular heart disease. Procedure: A two-dimensional transthoracic echocardiogram with color flow and Doppler was performed. The study quality was technically adequate. There is no prior echocardiogram noted for this patient. The heart rate ranged between 74-80 bpm during the study. Left Ventricle: The left ventricle is normal in size and wall thickness. The ejection fraction is estimated to be 60-65%. Left ventricular wall motion is normal. Right Ventricle: The right ventricle is normal in size and function. Atria: The left atrial size is normal. Right atrial size is normal. There is no Doppler evidence for an interatrial shunt. Mitral Valve: The mitral valve leaflets appear borderline thickened, but open well. The mitral valve leaflets appear to open well. There is no mitral regurgitation noted. Aortic Valve: The aortic valve is trileaflet. The aortic valve opens well. There is no aortic valve stenosis. No aortic regurgitation is present. Tricuspid Valve: The tricuspid valve leaflets are thin and pliable. There is trace tricuspid regurgitation. The right ventricular systolic pressure is estimated to be at least 24 mmHg based on an estimated right atrial pressure of 3 mm Hg. Pulmonic Valve: The pulmonic valve leaflets are thin and pliable; valve motion is normal. There is trace pulmonic regurgitation. Great Vessels: The aortic root is normal size. The dimensions of the ascending aorta are normal. The IVC is of normal diameter and collapses greater than 50% with a sniff. This suggests a low right atrial pressure of 3 mm Hg. Pericardium/ Pleura There is an anterior echo-free space consistent with a fat pad. There may be scant amount of fluid in the pericardial space. No signs of tamponade. There is no pleural effusion. MMode/2D Measurements & Calculations LVIDd: 4.6 cm LVOT diam: 2.1 cm LVIDs: 2.8 cm Ao root diam: 3.2 cm FS: 39.8 % asc Aorta Diam: 3.7 cm EPSS: 0.20 cm Ao Arch Diam (Prox Trans): 2.8 cm IVSd: 0.84 cm LVPWd: 0.86 cm LV mittal. diameter/BSA (cm/m^2): 2.2 LV sys. diameter/BSA (cm/m^2): 1.3 LA A2 area: 14.8 cm2 RA long axis: 4.1 cm LA A4 area: 12.2 cm2 RA area: 10.7 cm2 LA length (vol): 4.1 cm RA vol: 23.8 ml LA vol: 37.4 ml RA : 11.5 ml/m2 LA vol index: 18.0 ml/m2 IVC diam: 1.4 cm RVD1 (basal): 2.8 cm RVD2 (mid): 2.2 cm TAPSE: 1.7 cm Doppler Measurements & Calculations Ao V2 max: 141.5 cm/sec LVOT Max Jose: 113.5 cm/sec Ao V2 mean: 99.2 cm/sec LV V1 max P.2 mmHg Ao max P.0 mmHg LV V1 VTI: 22.6 cm Ao mean P.4 mmHg MARC(I,D): 2.7 cm2 Ao V2 VTI: 28.2 cm MARC(V,D): 2.7 cm2 sev ratio: 0.80 MARC indexed to BSA (cm^2/m^2): 1.3 MV E max jose: 77.8 cm/sec TR max jose: 230.5 cm/sec MV A max jose: 100.4 cm/sec TR max P.2 mmHg MV E/A: 0.77 PA V2 max: 83.9 cm/sec Med Peak E' Jose: 10.1 cm/sec PA V2 mean: 59.4 cm/sec E/E' med: 7.7 PA mean P.5 mmHg Lat Peak E' Jose: 8.3 cm/sec PA pr(Accel): 36.2 mmHg E/E' lat: 9.4 E/e' average: 8.5 MV dec time: 0.25 sec SV(LVOT): 76.2 ml Reading Physician:02:08 PM
== END ==
PROVIDERS: Family Provider Family Medicine; PCP Family Medicine; Referring Provider Family Medicine; Visit Provider Family Medicine
DX: R07.9 Chest pain, unspecified (principal)
CPT/HCPCS: 93306

== ENCOUNTER 2024-10-18 21:38 | Emergency (ER) | payer MEDICARE, OTHER, SELFPAY ==
[2024-10-18 21:43] VITALS: BP 147/86; PULSE 85; RESP 18; TEMP 36.9; O2SAT 98; BMI 34.4
--- NOTE | 2024-10-18 22:25 | PC.NURSE ---
Abd pain NIO's placed but pt declining at this time.
== END 2024-10-19 03:17 | disposition left against medical advice (07) ==
PROVIDERS: Emergency Provider Emergency Medicine; Family Provider Family Medicine; PCP Family Medicine
DX: R10.9 Unspecified abdominal pain (principal)
CPT/HCPCS: 99281

== ENCOUNTER → 2024-12-02 15:21 | Outpatient (CLI) | payer OTHER, MEDICARE, SELFPAY ==
--- NOTE | 2024-12-02 15:25 | DI.RAD.S_ITS ---
PROCEDURE: XR DEXA AXIAL SKELETON INDICATIONS: Screening for osteoporosis COMPARISON: None. FINDINGS: Lumbar Spine: Bone mineral density 1.161 g/cm2, T score 1.0. Left Femoral Neck: Bone mineral density 0.917 g/cm2, T score 0.6. Left Hip: Bone mineral density 1.042 g/cm2, T score 0.8. Fracture Risk Calculation (when applicable): 10-year fracture risk of a major osteoporotic fracture 5.8 percent and of a hip fracture 0.1 percent. (T score greater or equal to -1.0 to: NORMAL) (T score from -1.1 to -2.4: OSTEOPENIA) (T score less than or equal to -2.5: OSTEOPOROSIS) IMPRESSION: Normal--- recommend repeat DEXA as clinically indicated. Follow-up guidelines as follows: Osteoporosis: Consider a repeat DEXA and Vertebral Fracture Assessment (VFA) exam in 2 years or sooner if medically necessary, to reassess this patient's status. Osteopenia: Consider a repeat DEXA in 2-3 years to reassess this patient's status, or if there is a new clinical indication. Normal: Consider a repeat DEXA in 5 years or sooner, or if there is a new clinical indication. All treatment decisions require clinical judgment and consideration of individual patient factors, including patient preferences, comorbidities, previous drug use, risk factors not captured in the FRAX model (e.g., frailty, falls, vitamin D deficiency, increased bone turnover, interval significant decline in bone density ) and possible under- or over-estimation of fracture risk by FRAX. In addition, the NOF Guide recommends that FDA-approved medical therapies be considered in postmenopausal women and men age >= 50 years with a: * Hip or vertebral (clinical or morphometric) fracture * T-score of <=-2.5 at the spine or hip * Ten-year fracture probability by FRAX of >= 3% for hip fracture or >=20% for major osteoporotic fracture. Dictated by: David Palacio M.D. on 12/02/2024 at 20:06 Approved by: David Palacio M.D. on 12/02/2024 at 20:09
== END ==
PROVIDERS: Family Provider Family Medicine; PCP Family Medicine; Referring Provider Family Medicine; Visit Provider Family Medicine
DX: Z78.0 Asymptomatic menopausal state (principal); E55.9 Vitamin D deficiency, unspecified
CPT/HCPCS: 77080

== ENCOUNTER 2024-12-05 21:38 | Emergency (ER) | payer MEDICARE, OTHER, SELFPAY ==
[2024-12-05 21:42] VITALS: BP 157/100; PULSE 116; RESP 22; TEMP 36.4; O2SAT 95; BMI 32.8
--- NOTE | 2024-12-05 21:49 | DI.US.S_ITS ---
PROCEDURE: US PERIP VENOUS LOW EXTREM RT INDICATIONS: concern for DVT in right leg; swelling/pain/redness TECHNIQUE: Real-time imaging, as well as color and pulse Doppler interrogation, were performed of the lower extremity deep veins from the inguinal ligament to the popliteal fossa, with documentation of the visualized calf veins. COMPARISON: [facility], [facility] VENOUS LOW EXTREM RT, 04/05/2023, 16:25. FINDINGS: The common femoral, femoral, popliteal, and the visualized calf veins are normally compressible, and free of intraluminal thrombus. Color and pulse Doppler demonstrate normal phasic intraluminal flow. There is normal augmentation response to distal compression maneuver. IMPRESSION: No findings of lower extremity deep venous thrombosis. Dictated by: Aurelia Brown M.D. on 12/06/2024 at 0:05 Approved by: Aurelia Brown M.D. on 12/06/2024 at 0:06
--- NOTE | 2024-12-05 23:49 | ED.EXTPRO ---
HPI - Extremity Problem General Chief complaint: Extremity Problem,Nontraumatic Stated complaint: Possible DVT; pain and redness in back of Rt leg Time Seen by Provider: 12/05/24 23:49 Source: patient Mode of arrival: Ambulatory History of Present Illness HPI Narrative: 64-year-old female with a past medical history bilateral lower extremity venous insufficiency, hypertension, comes into the ED from home for evaluation of right leg swelling pain redness, she states that she is concerned that she has a blood clot. She states that she is worried because she came back from a 3 hour flight several days ago. She states that she does have intermittent cramping pain to her bilateral legs but is worried because she recently came back from a flight. She also states that she has chronic left lower leg swelling and pain and she states that she feels like the right looks about the same now. But she denies any numbness weakness tingling to the bilateral lower extremities, is able to stand bear weight ambulate unassisted here in the emergency department. She denies any blood thinners, denies any known self or family history of bleeding or clotting disorders. Related Data Home Medications Medication Instructions Recorded Confirmed cholecalciferol (vitamin D3) 25 25 mcg PO DAILY 10/21/23 10/25/24 mcg (1,000 unit) capsule Previous Rx's Medication Instructions Recorded albuterol sulfate 2.5 mg/3 mL 2.5 mg (3 mL) inhalation Q4H PRN 12/22/22 (0.083 %) solution for nebulization shortness of breath or wheezing #75 mL albuterol sulfate 90 mcg/actuation 2 puff inhalation Q4-6H PRN 12/22/22 aerosol inhaler shortness of breath or wheezing #8.5 grams ondansetron 4 mg disintegrating 4 mg PO Q6-8H PRN nausea and 09/18/23 tablet vomiting #30 tabs lorazepam 1 mg tablet 1 mg PO DAILY PRN anxiety #30 tabs 10/15/23 fluticasone 250 mcg-salmeterol 50 1 - 2 ea inhalation BID #60 ea 02/02/24 mcg/dose blistr powdr for inhalation ipratropium 0.5 mg-albuterol 3 mg 3 ml inhalation Q6-8H PRN 02/19/24 (2.5 mg base)/3 mL nebulization shortness of breath #90 mL soln chlorthalidone 25 mg tablet 12.5 mg (1/2 x 25 mg) PO DAILY 03/01/24 blood pressure #90 tabs lisinopril 10 mg tablet 10 mg PO DAILY blood pressure #90 03/01/24 tabs rosuvastatin 10 mg tablet 10 mg PO DAILY #100 tabs 05/13/24 montelukast 10 mg tablet 10 mg PO DAILY #90 tabs 06/06/24 acyclovir 400 mg tablet 400 mg PO 5XD PRN outbreak 7 days 07/18/24 #70 tabs phentermine 37.5 mg tablet 37.5 mg PO DAILY #30 tabs 10/25/24 Allergies Allergy/AdvReac Type Severity Reaction Status Date / Time No Known Drug Allergies Allergy Verified 10/25/24 14:31 Review of Systems Review of Systems Narrative: General: Denies fever, chills, weight loss HEENT: Denies headache, eye drainage, eye irritation, head trauma, sore throat, voice change Cardiovascular: Denies any chest pain, palpitations, tachycardia Respiratory: Denies any shortness of breath, cough, wheeze, stridor GI/: Denies any abdominal pain, nausea, vomiting, diarrhea, bright red blood per rectum, melanotic stools, urinary frequency, urinary retention, dysuria, hematuria MSK: Positive right leg swelling redness pain Skin: Denies any rashes, lesions, discoloration Neuro: Denies any headache, lightheadedness, dizziness, fainting, weakness Psych: Denies SI/HI Patient History Medical History Coronary artery calcification Venous insufficiency of both lower extremities CTS (carpal tunnel syndrome) Depression Left knee DJD Facet arthropathy, lumbar Lumbar radiculopathy, chronic Obesity (BMI 30.0-34.9) Herniated disc Measles (~1963) Hyperthyroidism (~2007) Skin cancer (~2019) Parathyroid tumor Family history of colon cancer Benign essential HTN Melanoma (~2019) Asthma Surgical History Anesthesia History of partial hysterectomy (~2013) Status post hysterectomy Status post parathyroidectomy (~12/11/05) History of tonsillectomy Family History Father Hypertension Cancer Mother Hypertension Grandmother Hypertension Cancer Brother Cancer Sister Cancer Grandfather Cancer Grandmother Pneumonia Grandfather Cancer Social History household members: none alcohol intake: current Smoking Status: Never smoker alcohol intake frequency: holidays/special occasions only Exam Narrative Exam Narrative: General: Cooperative, well-developed, not in acute distress HEENT: Normocephalic, atraumatic, PERRLA, normal sclera, eyelids normal Neck: Active full range of motion, atraumatic Chest: Normal to inspection, negative crepitus, no overlying erythema ecchymosis Respiratory: Normal respiratory effort, not in acute respiratory distress, clear to auscultation bilaterally negative cough, wheeze, tachypnea, rhonchi, rales Cardiology: Regular rate rhythm negative gallop, murmur, rubs GI/: No tenderness to palpation, soft, non rigid, normal to inspection, exam deferred MSK: Full active range of motion in all 4 extremities, atraumatic, no tenderness to palpation of any bony prominences, bilateral lower extremities neurovascularly intact there is no appreciable erythema noted to bilateral lower extremities, patient is able to stand bear weight ambulate unassisted here in the emergency department Skin: No rashes or lesions noted Neuro: Alert awake oriented x3, moves all 4 extremities spontaneously, cranial nerves intact, able to answer all questions appropriately follows commands appropriately Psych: Cooperative, negative suicidal or homicidal ideations Initial Vital Signs Initial Vital Signs: Vital Signs Temperature 97.5 F L 12/05/24 21:42 Pulse Rate 116 H 12/05/24 21:42 Respiratory Rate 22 12/05/24 21:42 Blood Pressure 157/100 H 12/05/24 21:42 Pulse Oximetry 95 12/05/24 21:42 Oxygen Delivery Method Room Air 12/05/24 21:42 Course Orders Ordered: ED Orders 12/05/24 21:49 US periph venous low extrem rt Stat Vital Signs Vital signs: Vital Signs - 8 hr 12/05/24 21:42 Temperature 97.5 F L Pulse Rate 116 H Respiratory Rate 22 Blood Pressure 157/100 H Pulse Oximetry 95 Oxygen Delivery Method Room Air MDM - Extremity (Nontraumatic) Differential Diagnosis Differential diagnosis: Likely cellulitis, superficial thrombophlebitis and deep vein thrombosis of lower extremity (Right leg pain, venous insufficiency) MDM Narrative Medical decision making narrative: 64-year-old female history lower extremity venous insufficiency, hypertension, presents to the emergency department for evaluation of possible DVT to her right leg. She states that she noticed some swelling redness pain to her right leg without trauma, she states that this started yesterday. She states that she is worried that she might have had a DVT given the fact that she came back from a flight 2 days ago. She denies any numbness weakness tingling to the lower extremity, she has not on any blood thinners no known history of bleeding or clotting disorders in self or family. She denies any other symptoms at this time. Patient had ultrasound of her right lower extremity negative for acute DVT, on exam there is no erythema noted, there is no tenderness to palpation, instructed patient to follow up with primary care in outpatient setting she verbalized understanding of this and agrees to being discharged home with outpatient follow up Discharge Plan Departure Patient Disposition: Home Clinical Impression: Leg pain, right Activity Restrictions/Additional Instructions: Please follow up with your primary care doctor Please read the discharge instructions sheet carefully and bring all papers to all doctor follow-up visits, as it may contain information that your doctor may want to see. Disease processes change and evolve, if your symptoms worsen or if you develop any new symptoms that are concerning to you please return for evaluation. Your evaluation today does not show any evidence of any life-threatening/serious illnesses requiring admission to the hospital or surgery. Please follow-up with your doctor for re-evaluation in approximately 1 day. Seek immediate medical attention for any worrisome symptoms. *If you do not have a primary care provider please contact the [facility] Resource line at [phone]. They will ask some questions about your medical history and help get you set up with a doctor in the community. Prescriptions: No Action ipratropium-albuterol 0.5 mg-3 mg(2.5 mg base)/3 mL solution for nebulization 3 ml inhalation Q6-8H PRN (Reason: shortness of breath) Qty: 90 0RF cholecalciferol (vitamin D3) 25 mcg (1,000 unit) capsule 25 mcg PO DAILY fluticasone propion-salmeterol 250-50 mcg/dose blister with device 1 - 2 ea inhalation BID Qty: 60 4RF Hold Instructions: doing well on singulair alone montelukast 10 mg tablet 10 mg PO DAILY Qty: 90 3RF acyclovir 400 mg tablet 400 mg PO 5XD PRN (Reason: outbreak) 7 Days Qty: 70 5RF lorazepam 1 mg tablet 1 mg PO DAILY PRN (Reason: anxiety) Qty: 30 0RF chlorthalidone 25 mg tablet 12.5 mg PO DAILY Qty: 90 3RF Rx Instructions: put on hold until she requests a refill lisinopril 10 mg tablet 10 mg PO DAILY Qty: 90 3RF Rx Instructions: put on file phentermine 37.5 mg tablet 37.5 mg PO DAILY Qty: 30 2RF Hold Instructions: Home Medication placed on hold at Doctor's office Rx Instructions: must administer 30 minutes before or 1-2 hours after breakfast ondansetron 4 mg tablet,disintegrating 4 mg PO Q6-8H PRN (Reason: nausea and vomiting) Qty: 30 5RF rosuvastatin 10 mg tablet 10 mg PO DAILY Qty: 100 3RF albuterol sulfate 90 mcg/actuation HFA aerosol inhaler 2 puff inhalation Q4-6H PRN (Reason: shortness of breath or wheezing) Qty: 8.5 2RF albuterol sulfate 2.5 mg /3 mL (0.083 %) solution for nebulization 2.5 mg inhalation Q4H PRN (Reason: shortness of breath or wheezing) Qty: 75 2RF Referrals: Garett Bland DO [Primary Care Provider] - Stand Alone Forms: Patient Portal/API/Survey
== END 2024-12-06 00:46 | disposition home or self-care (01) ==
PROVIDERS: Emergency Provider Student in an Organized Health Care Education/Training Program; Family Provider Family Medicine; PCP Family Medicine
DX: M79.604 Pain in right leg (principal)
CPT/HCPCS: 93971; 99281; 99283

== ENCOUNTER → 2024-12-12 08:05 | Outpatient (CLI) | payer MEDICARE, OTHER, SELFPAY ==
[2024-12-12 09:19] LABS: BUN Creatinine Ratio 24.2 (6-22); Blood Urea Nitrogen 16 mg/dL (7-17); Calcium 9.7 mg/dL (8.4-10.2); Carbon Dioxide 27 mmol/L (22-32); Chloride 104 mmol/L (98-107); Cholesterol 129 mg/dL (140-199); Estimated Glomerular Filt Rate > 60 mL/min (>60); Glucose 108 mg/dL (80-110); HDL Cholesterol 54 mg/dL (40-60); HEMOLYSIS < 15 (0-50); LDL Cholesterol Calculated 50 mg/dL (<100); Potassium 4.4 mmol/L (3.4-5.1); Sodium 140 mmol/L (137-145); Triglycerides 123 mg/dL (35-150)
== END ==
PROVIDERS: Family Provider Family Medicine; PCP Family Medicine; Referring Provider Family Medicine; Visit Provider Family Medicine
DX: Z00.00 Encounter for general adult medical examination without abnormal findings (principal); I10 Essential (primary) hypertension; E78.5 Hyperlipidemia, unspecified; E83.52 Hypercalcemia
CPT/HCPCS: 36415; 80048; 80061

== ENCOUNTER → 2024-12-13 07:49 | Outpatient (CLI) | payer MEDICARE, OTHER, SELFPAY ==
--- NOTE | 2024-12-13 07:50 | DI.NM.S_ITS ---
PROCEDURE: NE HIDA WITH CCK PHARMACEUTICAL: 5.5 mCi Tc-99m mebrofenin IV; 1.9 mcg CCK IV. INDICATIONS: epigastric abd pain. TECHNIQUE: Following intravenous administration of Tc-99m mebrofenin, sequential anterior abdominal images were obtained. To evaluate the contractile response of the gallbladder in response to Cholecystokinin (CCK), sincalide (0.02 ?g/kg) was administered by slow intravenous infusion approximately 60 minutes after the administration of the radiopharmaceutical. Sequential imaging was continued for 30 minutes after the start of CCK infusion. Gallbladder ejection fraction was calculated. COMPARISON: [facility], , US ABDOMEN LIMITED, 09/21/2023, 11:30. [facility], CT, CT ANGIO CHEST ABDOMEN PELVIS, 05/11/2024, 13:20. [place], [place], HEPATOBILIARY SCAN WITH CCK, 03/06/2017, 8:15. FINDINGS: Biliary scan: There is normal tracer uptake and excretion by the liver. There is normal visualization of the intrahepatic ducts, common bile duct, and gallbladder. There is normal tracer transit into the duodenum. CCK stimulation: There is prompt, normal contractile response of the gallbladder to CCK infusion. The calculated gallbladder ejection fraction is 97%; normal values are above 35%. The patient reports that the CCK administration did reproduce the pain symptoms, which are rated as a 5 on a 1 - 10 pain scale. It has been shown that any patient abdominal pain after CCK administration is related to the rate of CCK injection, rather than to any underlying gallbladder disease (Clinical Nuclear Medicine 2012; 37: 63-70. Journal of Nuclear Medicine 2014; 55: 1-9). IMPRESSION: Normal gallbladder ejection fraction. However, there is right upper quadrant pain with the CCK injection. Dictated by: Jimym Hernandez M.D. on 12/13/2024 at 12:01 Approved by: Jimmy Hernandez M.D. on 12/13/2024 at 12:03
== END ==
PROVIDERS: Family Provider Family Medicine; PCP Family Medicine; Referring Provider Family Medicine; Visit Provider Family Medicine
DX: R10.13 Epigastric pain (principal)
CPT/HCPCS: 78227; A9537; J2805